=== PATIENT | female | born 1935 | race Caucasian/White ===

== ENCOUNTER 2017-02-22 13:38 | Inpatient (IN) | payer OTHER, MEDICARE ==
[2017-02-22] MEDS ORDERED: SODIUM CHLORIDE 1,000 ML IV STA (14:21)
[2017-02-22 14:45] LABS: BASOPHIL 0.9 % (0-2.0); EOSINOPHIL 1.3 % (0-4.5); MCH 31.2 pg (25.7-33.7); MCHC 34.4 g/dl (32.0-36.0); MEAN CELL VOLUME 90.5 fl (80-96); MEAN PLT VOLUME 9.2 fl (7.5-11.1); PLATELET COUNT 193 K/MM3 (134-434); RDW 14.1 % (11.6-15.6); WHITE BLOOD COUNT 7.6 K/mm3 (4.0-10.0)
--- NOTE | 2017-02-22 14:50 | PDOC ---
Attending Attestation - Resident Resident Name: Martín Chakraborty - ED Attending Attestation I have performed the following: I have examined & evaluated the patient, The case was reviewed & discussed with the resident, I agree w/resident's findings & plan, Exceptions are as noted - HPI HPI: 02/22/17 16:21 81y F hx of COPD, hypothyroidism, htn, dvt on a/c presents with genralized weakness since thursday. pt denies any complaints such as cp, abd pain, sob, fever/chils, cough, abd pain, back pain, dairrehea, dysuria. Pts daughter notes taht the pts apt is warm and although she has AC she does not like to turn it on. The pt also does not drink fluids very frequently. Pt notes she had similar sypmtoms approx 1 year ago for similar complaints. On exam pt in no distress, noted mildly hypoxic to 93%, suspect may be due to her COPD. She has dry mm, and her LE are very weak (able to lift her legs against gravity but appears generally weak). Pts labs noted for mild prerenal azotemia cxr clear will obtain CT head, consider possible cva due to lower extremity weakness. pt notes she had similar symptoms, ?old cva with reexacerbation due to dehydration? awaiting trops, tsh anticipate admission/observation due to the pts notable weakness. signed out to dr. carlson to fu with Dr. Chakraborty - Physicial Exam PE: 02/25/17 09:23 see above - Medical Decision Making 02/25/17 09:24 see luke Heart Score/ECG Review - ECG Impressions Comment:: 02/22/17 17:50 regular, narrow complex normal axis normal intervals nonspecific St wave changes rate of 78
[2017-02-22 15:23] LABS: ALBUMIN 3.6 g/dl (3.4-5.0); ALK PHOS 111 U/L (45-117); ANION GAP 12 (8-16); BILIRUBIN,TOTAL 0.7 mg/dL (0.2-1.0); CALCIUM 8.5 mg/dL (8.5-10.1); CO2 23 mmol/L (21-32); CREATININE 1.6 mg/dL (0.55-1.02); GLUCOSE,RANDOM 105 mg/dL (74-106); SGOT/AST 33 U/L (15-37); SGPT/ALT 46 U/L (12-78)
[2017-02-22 16:07] LABS: URINE APPEARANCE CLEAR; URINE BILIRUBIN NEGATIVE (NEGATIVE); URINE BLOOD NEGATIVE (NEGATIVE); URINE COLOR STRAW; URINE GLUCOSE (UA) NEGATIVE (NEGATIVE); URINE KETONE TRACE (NEGATIVE); URINE NITRITE NEGATIVE (NEGATIVE); URINE PROTEIN NEGATIVE (NEGATIVE); URINE UROBILINOGEN NEGATIVE mg/dL (0.2-1.0)
[2017-02-22 16:14] LABS: URINE LEUK ESTERASE 1+ (NEGATIVE)
[2017-02-22 16:19] LABS: URINE RBC <1 /hpf (0-3); URINE WBC 6 /hpf (3-5)
--- NOTE | 2017-02-22 16:48 | PDOC ---
History of Present Illness - General Chief Complaint: Pain Stated Complaint: BACK PAIN Time Seen by Provider: 02/22/17 13:43 - History of Present Illness Initial Comments: 02/22/17 16:48 81 yo F with h/o PAD, HTN, COPD, CKD, and DJD who presents with generalized weakness. Pt. reports weakness over the past week. She states that she has had difficulty standing from a sitting position. She also endorses worsening lower lumbar back pain over the past week. Denies numbness/tingling, SOB, chest pain, N/V, dizziness, syncope, visual disturbance, GEIGER, fevers/chills, abdominal/GI complaints, or urinary complaints. No home oxygen use and states that she has at home yolande benjamin ut has not used in past week. Tylenol for back pain with no relief. Per daughter at bedside pt. has not maintained adequate fluid hydration. Past History - Past Medical History Allergies/Adverse Reactions: Allergies Allergy/AdvReac Type Severity Reaction Status Date / Time lansoprazole [From Prevacid] Allergy Verified 03/10/16 08:23 Penicillins Allergy Hives Verified 03/10/16 08:23 prednisone Allergy Hives Verified 03/10/16 08:23 Home Medications: Ambulatory Orders Amlodipine Besylate [Norvasc -] 5 mg PO DAILY tablet 06/22/15 Albuterol 2.5/Ipratropium 0.5 [Duoneb -] 1 amp NEB QIDR amp 07/17/15 Metoprolol Tartrate [Lopressor -] 25 mg PO BID tablet 07/17/15 Calcium Carbonate [Calcium] 500 mg PO DAILY 03/10/16 Cholecalciferol (Vitamin D3) [Vitamin D3] 1,000 unit PO DAILY 03/10/16 Levothyroxine [Synthroid -] 100 mcg PO DAILY 03/10/16 Pravastatin Sodium 20 mg PO HS #30 tablet 03/14/16 Apixaban [Eliquis] 5 mg PO BID 08/08/16 COPD: Yes HTN: Yes Thyroid Disease: Yes (hypo) Other medical history: osteoporosis, DVT, back problems - Surgical History Abdominal Surgery: Yes (TUBAL LIGATION) Cholecystectomy: Yes - Psycho/Social/Smoking Cessation Hx Anxiety: No Suicidal Ideation: No Smoking History: Former smoker Have you smoked in the past 12 months: No Number of Cigarettes Smoked Daily: 0 If you are a former smoker, when did you quit?: 2 years ago Information on smoking cessation initiated: No 'Breaking Loose' booklet given: 06/19/15 Hx Alcohol Use: No Drug/Substance Use Hx: No Substance Use Type: Heroin Hx Substance Use Treatment: No Review of Systems - Review of Systems Comments:: 02/22/17 16:57 GENERAL/CONSTITUTIONAL: No fever or chills. No weakness. HEAD, EYES, EARS, NOSE AND THROAT: No change in vision. No ear pain or discharge. No sore throat. CARDIOVASCULAR: No chest pain or shortness of breath RESPIRATORY: No cough, wheezing, or hemoptysis. GASTROINTESTINAL: No nausea, vomiting, diarrhea or constipation. GENITOURINARY: No dysuria, frequency, or change in urination. MUSCULOSKELETAL: No joint or muscle swelling or pain. No neck or back pain. SKIN: No rash. NEUROLOGIC: +Weakness. No headache, vertigo, loss of consciousness, or change in strength/sensation. ENDOCRINE: No increased thirst. No abnormal weight change HEMATOLOGIC/LYMPHATIC: No anemia, easy bleeding, or history of blood clots. ALLERGIC/IMMUNOLOGIC: No hives or skin allergy. *Physical Exam - Vital Signs Last Vital Signs Temp Pulse Resp BP Pulse Ox 98.2 F 73 18 175/59 93 L 02/22/17 13:55 02/22/17 13:55 02/22/17 13:55 02/22/17 13:55 02/22/17 13:55 - Physical Exam Comments: GENERAL: Awake, alert, and fully oriented, in no acute distress HEAD: No signs of trauma, normocephalic, atraumatic EYES:+ Conjuctival pallor. PERRLA, EOMI, sclera anicteric, conjunctiva clear ENT: Auricles normal inspection, hearing grossly normal, nares patent, oropharynx clear without exudates. Dry mucosal membranes. NECK: Normal ROM, supple, no lymphadenopathy, JVD, or masses LUNGS: No distress, speaks full sentences, clear to auscultation bilaterally HEART: Regular rate and rhythm, normal S1 and S2, no murmurs, rubs or gallops, peripheral pulses normal and equal bilaterally. ABDOMEN: Soft, nontender, normoactive bowel sounds. No guarding, no rebound. No masses EXTREMITIES: Decrease sensation to pinprick and light touch in lower ext. Decreased gross motor strength in LE. Normal inspection, Normal range of motion , no edema. No clubbing or cyanosis. NEUROLOGICAL: Cranial nerves II through XII grossly intact. Normal speech. SKIN: Decreased skin turgor, Warm, Dry, no rashes or lesions noted. ED Treatment Course - LABORATORY CBC & Chemistry Diagram: 02/22/17 14:11 02/22/17 14:11 - ADDITIONAL ORDERS Additional order review: Laboratory Results 02/22/17 02/22/17 15:39 14:11 Sodium 136 Potassium 3.7 D Chloride 101 Carbon Dioxide 23 Anion Gap 12 BUN 33 H Creatinine 1.6 H Creat Clearance w eGFR 31.01 Random Glucose 105 Calcium 8.5 Total Bilirubin 0.7 D AST 33 D ALT 46 D Alkaline Phosphatase 111 Total Protein 7.0 Albumin 3.6 Urine Color Straw Urine Appearance Clear Urine pH 5.0 Urine Protein Negative Urine Glucose (UA) Negative Urine Ketones Trace H Urine Blood Negative Urine Nitrite Negative Urine Bilirubin Negative Urine Urobilinogen Negative Ur Leukocyte Esterase 1+ H Urine RBC <1 Urine WBC 6 Ur Epithelial Cells Rare 02/22/17 14:11 RBC 3.99 D MCV 90.5 MCHC 34.4 RDW 14.1 MPV 9.2 Neutrophils % 71.0 Lymphocytes % 17.2 Monocytes % 9.6 Eosinophils % 1.3 Basophils % 0.9 - RADIOLOGY Radiology Studies Ordered: Category Date Time Status CHEST X-RAY PORTABLE* [RAD] Stat Radiology 02/22/17 14:21 Taken - Medications Given in the ED: ED Medications Discontinued Medications Generic Name Dose Route Start Last Admin Trade Name Freq PRN Reason Stop Dose Admin Sodium Chloride 1,000 mls @ 1,000 mls/hr 02/22/17 14:21 02/22/17 14:55 Normal Saline - IV 02/22/17 15:20 1,000 mls/hr ASDIR STA Administration Medical Decision Making - Medical Decision Making 02/22/17 17:10 81 yo F with h/o HTN, COPD, DJD, Hypothyroid, who presents with generalized weakness. Pt. with predominate lower extremity weakness. Physical exam reveals decreased muscle strength in lower extremities against resistance. Pt. low oral fluid intake with signs of volume fluid . Hypoxic on presentation 93% RA. Pt. with baseline COPD. DDx. Dehydration, electrolyte disturbance, pneumonia, CVA. ED Course: CBC- unremarkable CMP: Prerenal Azotemia BUN: 33, Cr: 1.6 02/22/17 18:21 UA: unremarkable CXR: Unremarkable EKG: CT head: *DC/Admit/Observation/Transfer Diagnosis at time of Disposition: Renal insufficiency, Dehydration, Malaise
[2017-02-22 17:22] LABS: TROPONIN I < 0.02 ng/ml (0.00-0.05)
[2017-02-22 18:08] LABS: THYROID STIMULATING HORMONE 7.18 uIU/ml (0.358-3.74)
--- NOTE | 2017-02-22 20:11 | PN ---
Teaching Attending Note Name of Resident: Darcy Ramos ATTENDING PHYSICIAN STATEMENT I saw and evaluated the patient. I reviewed the resident's note and discussed the case with the resident. I agree with the resident's findings and plan as documented. SUBJECTIVE: 81 yo F with pmhx of DVT. HTN, CKD STg III, compression fracture, choleycystectomy who presents with generalized weakness. Notes decreased PO intake. States she feels all her limbs are weak and had trouble doing work at home such as cleaning. No current chest pain, pressure, or shortness of breath. OBJECTIVE: Physical: VS: Vital Signs Period Temp Pulse Resp BP Sys/Pascual Pulse Ox Last 24 Hr 98.2 F-98.2 F 73-85 18-18 175-189/59-74 93-96 GEN: NAD, Resting in bed HEENT: NCAT, PERRL CARD: RRR S1, S2 RESP: CTAB ABD: BSx4, NTD to palpation EXT: - C/C/E MS +4/5 LUE and LLE +3/5, +3/5 RUE, +3/5 RLE Neuro: CN II- XII intact CBCD WBC 7.6 K/mm3 (4.0-10.0) 02/22/17 14:11 RBC 3.99 M/mm3 (3.60-5.2) D 02/22/17 14:11 Hgb 12.4 GM/dL (10.7-15.3) D 02/22/17 14:11 Hct 36.1 % (32.4-45.2) D 02/22/17 14:11 MCV 90.5 fl (80-96) 02/22/17 14:11 MCHC 34.4 g/dl (32.0-36.0) 02/22/17 14:11 RDW 14.1 % (11.6-15.6) 02/22/17 14:11 Plt Count 193 K/MM3 (134-434) 02/22/17 14:11 MPV 9.2 fl (7.5-11.1) 02/22/17 14:11 CMP Sodium 136 mmol/L (136-145) 02/22/17 14:11 Potassium 3.7 mmol/L (3.5-5.1) D 02/22/17 14:11 Chloride 101 mmol/L (98-107) 02/22/17 14:11 Carbon Dioxide 23 mmol/L (21-32) 02/22/17 14:11 Anion Gap 12 (8-16) 02/22/17 14:11 BUN 33 mg/dL (7-18) H 02/22/17 14:11 Creatinine 1.6 mg/dL (0.55-1.02) H 02/22/17 14:11 Creat Clearance w eGFR 31.01 (>60) 02/22/17 14:11 Random Glucose 105 mg/dL (74-106) 02/22/17 14:11 Calcium 8.5 mg/dL (8.5-10.1) 02/22/17 14:11 Total Bilirubin 0.7 mg/dL (0.2-1.0) D 02/22/17 14:11 AST 33 U/L (15-37) D 02/22/17 14:11 ALT 46 U/L (12-78) D 02/22/17 14:11 Alkaline Phosphatase 111 U/L (45-117) 02/22/17 14:11 Total Protein 7.0 g/dl (6.4-8.2) 02/22/17 14:11 Albumin 3.6 g/dl (3.4-5.0) 02/22/17 14:11 CARDIAC ENZYMES Creatine Kinase 248 IU/L (26-192) H D 02/22/17 14:11 Troponin I < 0.02 ng/ml (0.00-0.05) 02/22/17 14:11 Home Medications Medication Instructions Recorded Amlodipine Besylate [Norvasc -] 5 mg PO DAILY tablet 06/22/15 Albuterol 2.5/Ipratropium 0.5 1 amp NEB QIDR amp 07/17/15 [Duoneb -] Metoprolol Tartrate [Lopressor -] 25 mg PO BID tablet 07/17/15 Calcium Carbonate [Calcium] 500 mg PO DAILY 03/10/16 Cholecalciferol (Vitamin D3) 1,000 unit PO DAILY 03/10/16 [Vitamin D3] Levothyroxine [Synthroid -] 100 mcg PO DAILY 03/10/16 Pravastatin Sodium 20 mg PO HS #30 tablet 03/14/16 Apixaban [Eliquis] 5 mg PO BID 08/08/16 EKG:NSR [address] HEAD: White Matter Changes 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 Small focus of acute white matter ischemia cannot be excluded, no intercranial hemmorage, ventricular size is concordant with degree of atrophy ASSESSMENT AND PLAN: 81 yo F with pmhx of HTN;, DVT, CKD, Hypothyriodism, former smoker who presents with generalized weakness 1.) Generalized Weakness - DDx: ? Hypothyroidism/?Acute white Matter Ischemia - MRI brain wo con - Free T4 stat - Neuro consult - CHk. B12/Folate - Echo/Carotids 2.) HTN - C/w home meds 3.) DVT - C/w Eliquis 4.) MARCIAL on CKD - Gentle NS - Avoid Nephrotoxins Place in OBS Stroke tele
--- NOTE | 2017-02-22 20:16 | HP ---
HISTORY OF PRESENT ILLNESS: Patient is an 81 year old female with a PMHx of hypothyroidism, HTN, COPD, CKD, hx of DVT on anticoagulation who presents for increasing weakness of her lower extremity for the past week. Patient reports she is unable to open her windows due to the severity of her weakness. According to her family, patient has had decrease PO intake with fluids and solids. She denies any dyspnea, chest pain, nausea, vomiting, dizziness, abdominal pain, hematuria, dysuria, frequency. PHYSICAL EXAMINATION Vital Signs - 24 hr 02/22/17 02/22/17 13:55 19:47 Temperature 98.2 F 98.2 F Pulse Rate 73 Pulse Rate [ 85 Apical] Respiratory 18 18 Rate Blood Pressure 175/59 Blood Pressure 189/74 [Right Arm] O2 Sat by Pulse 93 L 96 Oximetry (%) GENERAL: Awake, alert, and fully oriented, in no acute distress. MOUTH: Dry mucous membranes. LUNGS: Breath sounds equal, clear to auscultation bilaterally. No wheezes, and no crackles. No accessory muscle use. HEART: Regular rate and rhythm, normal S1 and S2 without murmur, rub or gallop. ABDOMEN: Soft, nontender, not distended, normoactive bowel sounds, no guarding, no rebound, no masses. UPPER EXTREMITIES: No peripheral edema. LOWER EXTREMITIES: No calf tenderness. No peripheral edema. NEUROLOGICAL: Sensory Intact. Motor strength 5/5 upper extremity. 3/5 Lower extremity R>L Laboratory Results - last 24 hr 02/22/17 02/22/17 02/22/17 14:11 14:11 15:39 WBC 7.6 RBC 3.99 D Hgb 12.4 D Hct 36.1 D MCV 90.5 MCH 31.2 MCHC 34.4 RDW 14.1 Plt Count 193 MPV 9.2 Neutrophils % 71.0 Lymphocytes % 17.2 Monocytes % 9.6 Eosinophils % 1.3 Basophils % 0.9 Sodium 136 Potassium 3.7 D Chloride 101 Carbon Dioxide 23 Anion Gap 12 BUN 33 H Creatinine 1.6 H Creat Clearance w eGFR 31.01 Random Glucose 105 Calcium 8.5 Total Bilirubin 0.7 D AST 33 D ALT 46 D Alkaline Phosphatase 111 Creatine Kinase 248 H D Creatine Kinase Index 1.1 CK-MB (CK-2) 2.635 Troponin I < 0.02 Total Protein 7.0 Albumin 3.6 TSH 7.18 H Urine Color Straw Urine Appearance Clear Urine pH 5.0 Ur Specific [place] 1.010 Urine Protein Negative Urine Glucose (UA) Negative Urine Ketones Trace H Urine Blood Negative Urine Nitrite Negative Urine Bilirubin Negative Urine Urobilinogen Negative Ur Leukocyte Esterase 1+ H Urine RBC <1 Urine WBC 6 Ur Epithelial Cells Rare IMAGES: HEAD CT (02/22/17): White Matter Changes 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 Small focus of acute white matter ischemia cannot be excluded, no intercranial hemmorage, ventricular size is concordant with degree of atrophy ASSESSMENT/PLAN: Patient is an 81 year old female with a PMHx of hypothyroidism, HTN, COPD, CKD, hx of DVT on anticoagulation who presented for generalized weakness. Head CT done and showed possible acute white matter ischemia. Patient admitted for further monitoring and management. Generalized Weakness -Possibly secondary to hypothyroidism vs. Acute white matter ischemia -Carotid doppler/MRI ordered -Neurology consult placed -Folate/B12 ordered -Free T3/T4 ordered -Neuro Checks -Continue Statin MARCIAL on CKD -Continue gentle IV hydration with Fluids -Avoid nephrotoxic medications -Monitor BMP Hypothyroidism -Recent adjustment to her synthroid this week -TSK 7.18 today -Free T3/T4 ordered -Continue Synthroid HTN -Continue home medications Lopressor and Amlodopine -Continue to monitor BP COPD/Asthma -Continue DuoNeb -02 PRN History of DVT -Continue home medication Eliquis F/E/N -Light hydration with IVF NS @50cc/hr -Electrolytes wnl -Sodium controlled diet Prophylaxis -High Risk. Eliquis for DVT -No GI required Disposition -Full code -Admit to med/surg. Neuro consult placed CASE DISCUSSED WITH MEDICAL TEAM AND ATTENDING. FULL H&P TO FOLLOW Visit type - Emergency Visit Emergency Visit: Yes ED Registration Date: 02/22/17 Care time: The patient presented to the Emergency Department on the above date and was hospitalized for further evaluation of their emergent condition. - New Patient This patient is new to me today: Yes Date on this admission: 02/22/17 - Critical Care Critical Care patient: No
--- NOTE | 2017-02-22 22:01 | PDOC ---
*Physical Exam - Vital Signs Last Vital Signs Temp Pulse Resp BP Pulse Ox 98.2 F 85 18 189/74 96 02/22/17 19:47 02/22/17 19:47 02/22/17 19:47 02/22/17 19:47 02/22/17 19:47 ED Treatment Course - LABORATORY CBC & Chemistry Diagram: 02/22/17 14:11 02/22/17 14:11 - ADDITIONAL ORDERS Additional order review: Laboratory Results 02/22/17 02/22/17 15:39 14:11 Sodium 136 Potassium 3.7 D Chloride 101 Carbon Dioxide 23 Anion Gap 12 BUN 33 H Creatinine 1.6 H Creat Clearance w eGFR 31.01 Random Glucose 105 Calcium 8.5 Total Bilirubin 0.7 D AST 33 D ALT 46 D Alkaline Phosphatase 111 Creatine Kinase 248 H D Creatine Kinase Index 1.1 CK-MB (CK-2) 2.635 Troponin I < 0.02 Total Protein 7.0 Albumin 3.6 TSH 7.18 H Urine Color Straw Urine Appearance Clear Urine pH 5.0 Ur Specific [place] 1.010 Urine Protein Negative Urine Glucose (UA) Negative Urine Ketones Trace H Urine Blood Negative Urine Nitrite Negative Urine Bilirubin Negative Urine Urobilinogen Negative Ur Leukocyte Esterase 1+ H Urine RBC <1 Urine WBC 6 Ur Epithelial Cells Rare 02/22/17 14:11 RBC 3.99 D MCV 90.5 MCHC 34.4 RDW 14.1 MPV 9.2 Neutrophils % 71.0 Lymphocytes % 17.2 Monocytes % 9.6 Eosinophils % 1.3 Basophils % 0.9 - Medications Given in the ED: ED Medications Discontinued Medications Generic Name Dose Route Start Last Admin Trade Name Simónq PRN Reason Stop Dose Admin Sodium Chloride 1,000 mls @ 1,000 mls/hr 02/22/17 14:21 02/22/17 14:55 Normal Saline - IV 02/22/17 15:20 1,000 mls/hr ASDIR STA Administration Medical Decision Making - Medical Decision Making 02/22/17 21:57 ct scan head :no bleed,no shift,no acute infarct, there is chronic small vesssel disease, cannot r/o an acute ischemia case discussed w hospitalist and admitted to tele *DC/Admit/Observation/Transfer Diagnosis at time of Disposition: Renal insufficiency, Dehydration, Malaise - Discharge Dispostion Admit: Yes
--- NOTE | 2017-02-22 22:02 | HP ---
CHIEF COMPLAINT: weakness, malaise PCP: Nils Gutierrez MD HISTORY OF PRESENT ILLNESS: 81yo woman with PMH of COPD, PAD, LE DVTs (dx 07/2015, on Eliquis), hypothyroidism (on synthroid), HTN, DJD, and CKD stage III who presents after 1 week of progressive weakness, malaise and decreased PO intake. The patient was last hospitalized here in Mar 2016 for vascular insufficiency, and reports since discharge she has been doing well. The patient lives alone, and is independent in her ADL/IADLs. At baseline she walks without assistance, and can walk unlimited distance while leaning on a shopping cart, but less so (she estimates 1 block) without leaning due to her back pain. The patient last felt well 1 week ago, and reports feeling progressively weak. For the past several days she spent the majority of the day on her loveseat without the energy to walk around her house or the ability to open/close her window. She denies any myalgia or arthralgia. She has had anorexia with minimal PO intake, including liquids. She last saw her PCP 1 week ago who increased her synthroid dose. She denies any fever, chills, n/v, SOB, orthopnea, chest pain, pressure or tightness. No dysuria, frequency or hesitation. Her last BM was 1 week ago, which she reports is not abnormal for her. She has been passing gas; no melena or hematochezia. She denies any recent travel or sick contacts. No cold or heat intolerance. ER course was notable for: (1) Pt afebrile, no leukocytosis (2) UA negative (3) Head CT w/o contrast - no e/o hemorrhage, cannot r/o acute infarct Recent Travel: none PAST MEDICAL HISTORY: Hypothyroidism: Levothyroxine increased last week PAD: h/o vascular insufficiency with ulceration, admitted in Mar 2016 for L gangrenous toes on L foot, followed by Dr. Oliverio [place] DVT dx Jul 2015 - started on Eliquis COPD: -former smoker, not on home O2, no prior COPD-related hospitalizations HTN DJD CKD PAST SURGICAL HISTORY: -Cholecystectomy -Tubal ligation Social History: Smoking: Former, quit in 2014, 25 pack-years Alcohol: no Drugs: no Family History: non-contributory Allergies lansoprazole [From Prevacid] Allergy (Verified 03/10/16 08:23) Penicillins Allergy (Verified 03/10/16 08:23) Hives prednisone Allergy (Verified 03/10/16 08:23) Hives HOME MEDICATIONS: Home Medications Medication Instructions Recorded Amlodipine Besylate [Norvasc -] 5 mg PO DAILY tablet 06/22/15 Albuterol 2.5/Ipratropium 0.5 1 amp NEB QIDR amp 07/17/15 [Duoneb -] Metoprolol Tartrate [Lopressor -] 25 mg PO BID tablet 07/17/15 Calcium Carbonate [Calcium] 500 mg PO DAILY 03/10/16 Cholecalciferol (Vitamin D3) 1,000 unit PO DAILY 03/10/16 [Vitamin D3] Levothyroxine [Synthroid -] 100 mcg PO DAILY alt dieb 03/10/16 Levothyroxine [Synthroid -] 50 mcg PO DAILY alt dieb Pravastatin Sodium 20 mg PO HS #30 tablet 03/14/16 Apixaban [Eliquis] 5 mg PO BID 08/08/16 B12 1000U PO daily REVIEW OF SYSTEMS CONSTITUTIONAL: +generalized, weakness, decreased of appetite Absent: fever, chills, diaphoresis, weight change HEENT: Absent: rhinorrhea, nasal congestion, throat pain, throat swelling, difficulty swallowing, mouth swelling, ear pain, eye pain, visual changes CARDIOVASCULAR: Absent: chest pain, syncope, palpitations, irregular heart rate, lightheadedness , peripheral edema RESPIRATORY: Absent: cough, shortness of breath, dyspnea with exertion, orthopnea, wheezing, stridor, hemoptysis GASTROINTESTINAL: +constipation Absent: abdominal pain, abdominal distension, nausea, vomiting, diarrhea, melena , hematochezia GENITOURINARY: Absent: dysuria, frequency, urgency, hesitancy, hematuria, flank pain, genital pain MUSCULOSKELETAL: +back pain Absent: myalgia, arthralgia, joint swelling, back pain, neck pain SKIN: Absent: rash, itching, pallor HEMATOLOGIC/IMMUNOLOGIC: Absent: easy bleeding, easy bruising, lymphadenopathy, frequent infections ENDOCRINE: Absent: unexplained weight gain, unexplained weight loss, heat intolerance, cold intolerance NEUROLOGIC: Absent: headache, focal weakness or paresthesias, dizziness, unsteady gait, seizure, mental status changes, bladder or bowel incontinence PSYCHIATRIC: Absent: anxiety, depression, suicidal or homicidal ideation, hallucinations. PHYSICAL EXAMINATION Vital Signs - 24 hr 02/22/17 02/22/17 02/22/17 02/22/17 13:55 19:47 22:05 22:42 Temperature 98.2 F 98.2 F 99.9 F H Pulse Rate 73 86 82 Pulse Rate [ 85 Apical] Respiratory 18 18 18 20 Rate Blood Pressure 175/59 177/68 164/72 Blood Pressure 189/74 [Right Arm] O2 Sat by Pulse 93 L 96 97 96 Oximetry (%) GENERAL: Awake, alert, and fully oriented, in no acute distress. HEAD: Normal with no signs of trauma. EYES: PERRLA, EOMI, sclera anicteric, conjunctiva clear EARS, NOSE, THROAT: Dry mucous membranes NECK: supple, no cervical LAD LUNGS: CTAB, no wheezes, and no crackles. No accessory muscle use. HEART: Regular rate and rhythm, normal S1 and S2 without murmur, rub or gallop. ABDOMEN: Soft, NTND, normoactive BS. No hepatosplenomegaly LOWER EXTREMITIES: 2+ DP/PT pulses b/l, warm, well-perfused. 1+ pedal edema NEUROLOGICAL: Cranial nerves II-XII intact. Postural tremor R > L UE. Motor Exam: normal tone, muscle strength LUE and RUE 5/5, RLE 3/5 < LLE +3/5 PSYCHIATRIC: Cooperative. Good eye contact. Appropriate mood and affect. SKIN: Warm, dry, normal turgor, no rashes or lesions noted Laboratory Results - last 24 hr 02/22/17 02/22/17 02/22/17 14:11 14:11 15:39 WBC 7.6 RBC 3.99 D Hgb 12.4 D Hct 36.1 D MCV 90.5 MCH 31.2 MCHC 34.4 RDW 14.1 Plt Count 193 MPV 9.2 Neutrophils % 71.0 Lymphocytes % 17.2 Monocytes % 9.6 Eosinophils % 1.3 Basophils % 0.9 Sodium 136 Potassium 3.7 D Chloride 101 Carbon Dioxide 23 Anion Gap 12 BUN 33 H Creatinine 1.6 H Creat Clearance w eGFR 31.01 Random Glucose 105 Calcium 8.5 Total Bilirubin 0.7 D AST 33 D ALT 46 D Alkaline Phosphatase 111 Creatine Kinase 248 H D Creatine Kinase Index 1.1 CK-MB (CK-2) 2.635 Troponin I < 0.02 Total Protein 7.0 Albumin 3.6 TSH 7.18 H Urine Color Straw Urine Appearance Clear Urine pH 5.0 Ur Specific [place] 1.010 Urine Protein Negative Urine Glucose (UA) Negative Urine Ketones Trace H Urine Blood Negative Urine Nitrite Negative Urine Bilirubin Negative Urine Urobilinogen Negative Ur Leukocyte Esterase 1+ H Urine RBC <1 Urine WBC 6 Ur Epithelial Cells Rare EKG 02/22/2017: NSR, rate 78, QTc 412, normal axis CXR 02/22/2017: No pneumothorax, pleural effusion, or consolidation. Head CT w/o contrast 02/22/2017 - Preliminary Report "White matter changes are most suggestive of chronic past ischemic demyelination /small vessel disease. However, a small focus of acute while matter ischemia cannot entirely be excluded. There is no evidence of intracranial hemorrhage or mass effect." ASSESSMENT/PLAN: 81yo woman with PMH of COPD, DVTs (on Eliquis), PAD, HTN, hypothyroidism, CKD who presents with generalized weakness and malaise x1 week and admitted for further monitoring and management of dehydration and CVA r/o due to possible acute infarct seen on head CT. #generalized weakness: ddx dehydration/poor PO intake vs hypothyroidism vs acute infarct -Non-contrast Head CT preliminary report cannot r/o an acute ischemic focus -CVA w/u: -Neurology consult placed (Dr. Cosme) -Brain MRA w/o contrast tomorrow -ECHO tomorrow -Carotid dopplers -Lipid panel pending -TFTs: TSH elevated (7.18), free T3 and T4 pending -ESR/CRP pending -B12/Folate pending #CKD vs acute on CKD -Hydrate NS 50cc/hr -Avoid nephrotoxic meds -Routine BMP #Hypothyroidism -Per patient, Levothyroxine dose increased last week -Continue home Levothyroxine 100mcg PO ONCE alt dieb, 50mcg PO ONCE alt dieb #HTN -Continue home amlodipine 5mg PO daily -Metoprolol 25mg PO BID #PAD -Continue home Eliquis 5mg PO BID -Continue home Pravastatin 20mg PO hs #COPD -O2 therapy to maintain pSaO2 > 90% -Continue with home Duonebs 1 amp QIDR PRN #F/E/N -NS @50cc/hr -Electolytes wnl -Na controlled diet #DVT prophylaxis: high risk -Continue with home Eliquis #Dispo -Admit Stroke tele observation -Physical therapy requested -FULL code d/w with medical team Kat Astorga MD PGY-1 Visit type - Emergency Visit Emergency Visit: Yes ED Registration Date: 02/22/17 Care time: The patient presented to the Emergency Department on the above date and was hospitalized for further evaluation of their emergent condition. - New Patient This patient is new to me today: Yes Date on this admission: 02/23/17 - Critical Care Critical Care patient: No
[2017-02-22 22:21] LABS: CHOLESTEROL 128 mg/dL (50-200); FREE T4 1.44 ng/dl (0.76-1.46); LDL CHOLESTEROL (ONLY SJRH) 71 mg/dL (5-100)
[2017-02-22 22:57] LABS: INR 1.49 (0.82-1.09); PROTHROMBIN TIME (PATIENT) 16.5 SEC (9.98-11.88)
[2017-02-22] MEDS: METOPROLOL TARTRATE 25 MG TABLET (FP) PO SCH (23:40)
[2017-02-23] MEDS: APIXABAN 5 MG TABLET PO SCH ×3 (00:18→21:21)
[2017-02-23] MEDS: ALBUTEROL SO4 2.5/IPRATROPIUM 0.5 INH SOL 3 ML VIAL.NEB. NEB SCH ×4 (00:54→17:51)
[2017-02-23] MEDS: SODIUM CHLORIDE 1,000 ML IV SCH (02:25)
[2017-02-23 05:03] VITALS: BMI 24.0
[2017-02-23] MEDS: LEVOTHYROXINE NA 100 MCG TABLET (FP) PO SCH (06:33)
--- NOTE | 2017-02-23 09:13 | EKG ---
Test Reason : Blood Pressure : / mmHG Vent. Rate : 078 BPM Atrial Rate : 078 BPM P-R Int : 178 ms QRS Dur : 100 ms QT Int : 362 ms P-R-T Axes : 074 033 012 degrees QTc Int : 412 ms NORMAL SINUS RHYTHM NONSPECIFIC ST AND T WAVE ABNORMALITY ABNORMAL ECG WHEN COMPARED WITH ECG OF 10-MAR-2016 10:23, T WAVE INVERSION NOW EVIDENT IN LATERAL LEADS Confirmed by MARIANO HUDSON, ANURAG ([id number]) on 02/23/2017 9:13:24 AM Referred By: Confirmed By:ANURAG QUINTANA MD
--- NOTE | 2017-02-23 09:22 | CON.NEURO ---
Consult - History of Present Illness History of Present Illness: 81yo woman with PMH of COPD, PAD, LE DVTs (dx 07/2015, on Eliquis), hypothyroidism (on synthroid), HTN, DJD, and CKD stage III who presents after 1 week of progressive weakness, malaise and decreased PO intake. The patient was last hospitalized here - Mar 2016 for vascular insufficiency, and reports since discharge she has been doing well. The patient lives alone, and is independent in her ADL/IADLs. At baseline she walks without assistance, and can walk unlimited distance while leaning on a shopping cart, but less so (she estimates 1 block) without leaning due to her back pain. Reports feeling progressively weak x one week . She denies any myalgia or arthralgia. She has had anorexia with minimal PO intake, including liquids. She last saw her PCP 1 week ago who increased her synthroid dose. She denies any fever, chills, n/v, SOB, orthopnea, chest pain, pressure or tightness. No dysuria, frequency or hesitation. mild neck and low back pain. denies falls. denies prior hx of stroke. feels legs are swollen. CT HD - chronic left subinsular stroke. - History Source History Provided By: Patient, Medical Record - Past Medical History Cardio/Vascular: Yes: Deep Vein Thrombosis, HTN Renal/: Yes: Renal Inusuff (suspect underlying CKD stage III w/Scr of 1.2mg/dL ) ...: No Musculoskeletal: Yes: Other (compression fracture) Endocrine: Yes: Hypothyroidism - Past Surgical History Past Surgical History: Yes: Cholecystectomy - Alcohol/Substance Use Hx Alcohol Use: No History of Substance Use: reports: None - Smoking History Smoking history: Former smoker Have you smoked in the past 12 months: No Aproximately how many cigarettes per day: 0 If you are a former smoker, when did you quit?: 2 years ago - Social History ADL: Independent History of Recent Travel: No Home Medications - Allergies Allergies/Adverse Reactions: Allergies Allergy/AdvReac Type Severity Reaction Status Date / Time lansoprazole [From Prevacid] Allergy Verified 03/10/16 08:23 Penicillins Allergy Hives Verified 03/10/16 08:23 prednisone Allergy Hives Verified 03/10/16 08:23 - Home Medications Home Medications: Ambulatory Orders Amlodipine Besylate [Norvasc -] 5 mg PO DAILY tablet 06/22/15 Albuterol 2.5/Ipratropium 0.5 [Duoneb -] 1 amp NEB QIDR amp 07/17/15 Metoprolol Tartrate [Lopressor -] 25 mg PO BID tablet 07/17/15 Calcium Carbonate [Calcium] 500 mg PO DAILY 03/10/16 Cholecalciferol (Vitamin D3) [Vitamin D3] 1,000 unit PO DAILY 03/10/16 Levothyroxine [Synthroid -] 100 mcg PO DAILY 03/10/16 Pravastatin Sodium 20 mg PO HS #30 tablet 03/14/16 Apixaban [Eliquis] 5 mg PO BID 08/08/16 Physical Exam-Neuro Vital Signs: Vital Signs Temperature 97.9 F 02/23/17 06:00 Pulse Rate 58 L 02/23/17 06:00 Respiratory Rate 20 02/23/17 06:00 Blood Pressure 158/59 02/23/17 06:00 O2 Sat by Pulse Oximetry (%) 96 02/22/17 22:42 Constitutional: Yes: Well Nourished Cardiovascular: Yes: Regular Rate and Rhythm Labs: INR, PTT INR 1.49 (0.82-1.09) H 02/22/17 22:30 Troponin, BNP 02/22/17 14:11 Troponin I < 0.02 CBCD WBC 7.6 K/mm3 (4.0-10.0) 02/22/17 14:11 RBC 3.99 M/mm3 (3.60-5.2) D 02/22/17 14:11 Hgb 12.4 GM/dL (10.7-15.3) D 02/22/17 14:11 Hct 36.1 % (32.4-45.2) D 02/22/17 14:11 MCV 90.5 fl (80-96) 02/22/17 14:11 MCHC 34.4 g/dl (32.0-36.0) 02/22/17 14:11 RDW 14.1 % (11.6-15.6) 02/22/17 14:11 Plt Count 193 K/MM3 (134-434) 02/22/17 14:11 MPV 9.2 fl (7.5-11.1) 02/22/17 14:11 CMP Sodium 136 mmol/L (136-145) 02/22/17 14:11 Potassium 3.7 mmol/L (3.5-5.1) D 02/22/17 14:11 Chloride 101 mmol/L (98-107) 02/22/17 14:11 Carbon Dioxide 23 mmol/L (21-32) 02/22/17 14:11 Anion Gap 12 (8-16) 02/22/17 14:11 BUN 33 mg/dL (7-18) H 02/22/17 14:11 Creatinine 1.6 mg/dL (0.55-1.02) H 02/22/17 14:11 Creat Clearance w eGFR 31.01 (>60) 02/22/17 14:11 Random Glucose 105 mg/dL (74-106) 02/22/17 14:11 Calcium 8.5 mg/dL (8.5-10.1) 02/22/17 14:11 Total Bilirubin 0.7 mg/dL (0.2-1.0) D 02/22/17 14:11 AST 33 U/L (15-37) D 02/22/17 14:11 ALT 46 U/L (12-78) D 02/22/17 14:11 Alkaline Phosphatase 111 U/L (45-117) 02/22/17 14:11 Total Protein 7.0 g/dl (6.4-8.2) 02/22/17 14:11 Albumin 3.6 g/dl (3.4-5.0) 02/22/17 14:11 CARDIAC ENZYMES Creatine Kinase 248 IU/L (26-192) H D 02/22/17 14:11 Troponin I < 0.02 ng/ml (0.00-0.05) 02/22/17 14:11 - Neuro Exam Level Of Consciousness: Yes: Alert, Oriented to Person, Oriented to Place (EOMi , no facial, EOMI, motor 5/5 in UE and LE, prox and distal, inc tone in legs, no sensory level, brisk reflexes in UE and LE with upgoing toes, gait not tested ) NIH Stroke Scale - Total Score NIH Stroke Scale Score: 0 Imaging - Results Cat Scan: Report Reviewed, Image Reviewed Problem List - Problems (1) Dehydration Code(s): E86.0 - DEHYDRATION (2) COPD (chronic obstructive pulmonary disease) Code(s): J44.9 - CHRONIC OBSTRUCTIVE PULMONARY DISEASE, UNSPECIFIED Qualifiers : COPD type: unspecified COPD Qualified Code(s): J44.9 - Chronic obstructive pulmonary disease, unspecified (3) DVT (deep venous thrombosis) Code(s): I82.409 - ACUTE EMBOLISM AND THOMBOS UNSP DEEP VN UNSP LOWER EXTREMITY (4) Hypothyroidism Code(s): E03.9 - HYPOTHYROIDISM, UNSPECIFIED (5) Gait abnormality Code(s): R26.9 - UNSPECIFIED ABNORMALITIES OF GAIT AND MOBILITY Assessment/Plan 81yo woman with PMH of COPD, PAD, LE DVTs (dx 07/2015, on Eliquis), hypothyroidism (on synthroid), HTN, DJD, and CKD stage III who presents after 1 week of progressive weakness, malaise and decreased PO intake. The patient was last hospitalized here - Mar 2016 for vascular insufficiency, and reports since discharge she has been doing well. Reports feeling progressively weak x one week . . mild neck and low back pain. denies falls. denies prior hx of stroke. CT HD - chronic left subinsular stroke. on exam brisk reflexes and inc tone in LE-- r/o myelopathy, less likely stroke vs metabolic /dehydration deconditioning check MRI BRAIN, C spine check ESR, B12, copper level, SPEP, A1c, SENTHIL rehab will FU Dr French [phone]
[2017-02-23] MEDS ORDERED: PT OWN MED DRAWER 7, Y5N ONE ×2 (09:53→21:17)
[2017-02-23] MEDS: METOPROLOL TARTRATE 25 MG TABLET (FP) PO SCH ×2 (09:56→21:21)
[2017-02-23] MEDS: amLODIPine BESYLATE 5 MG TABLET (FP) PO SCH (09:56)
[2017-02-23] MEDS ORDERED: PNEUMOC 13-VAL CONJ-DIP CRM/PF 0.5 ML DISP.SYRIN IM ONE (10:00)
--- NOTE | 2017-02-23 10:34 | PN ---
Progress Note, Physician Chief Complaint: Ms Dale says she is feeling weak. No cp, sob, n/v. Says she is fatigued because she was unable to sleep last night. - Current Medication List Current Medications: Active Medications Albuterol/Ipratropium (Duoneb -) 1 amp NEB QIDR [facility] Last Admin: 02/23/17 06:30 Dose: 1 amp Amlodipine Besylate (Norvasc -) 5 mg PO DAILY [facility] Last Admin: 02/23/17 09:56 Dose: 5 mg Apixaban (Eliquis -) 5 mg PO BID [facility] Last Admin: 02/23/17 09:56 Dose: 5 mg Calcium Carbonate (Os-Boris 500mg -) 500 mg PO DAILY [facility] Cholecalciferol (Vitamin D3 -) 1,000 unit PO DAILY [facility] Sodium Chloride (Normal Saline -) 1,000 mls @ 50 mls/hr IV ASDIR [facility] Stop: 02/23/17 23:50 Last Admin: 02/23/17 02:25 Dose: 50 mls/hr Levothyroxine Sodium (Synthroid -) 100 mcg PO AM [facility] Last Admin: 02/23/17 06:33 Dose: 100 mcg Metoprolol Tartrate (Lopressor -) 25 mg PO BID [facility] Last Admin: 02/23/17 09:56 Dose: 25 mg Non-Formulary Medication (Pravastatin Sodium [Pravastatin Sodium]) 20 mg PO HS [facility] Pneumococcal 13-Valent Conj Vacc (Prevnar 13 Syringe -) 0.5 ml IM .ONCE ONE Stop: 02/23/17 10:01 - Objective Vital Signs: Vital Signs Temperature 98.7 F 02/23/17 10:15 Pulse Rate 68 02/23/17 10:15 Respiratory Rate 24 02/23/17 10:15 Blood Pressure 177/51 02/23/17 10:15 O2 Sat by Pulse Oximetry (%) 95 02/23/17 10:14 Constitutional: Yes: Well Nourished, No Distress, Calm Cardiovascular: Yes: Regular Rate and Rhythm. No: Gallop, Murmur, Rub Respiratory: Yes: Regular, CTA Bilaterally. No: Rales, Rhonchi, Wheezes Gastrointestinal: Yes: Normal Bowel Sounds, Soft. No: Distention, Tenderness Extremities: Yes: WNL Edema: No Labs: INR, PTT INR 1.49 (0.82-1.09) H 02/22/17 22:30 Problem List - Problems (1) Weakness Assessment/Plan: -neurology note reviewed -lower suspicion for CVA, but work up in progress -MRI ordered, patient agrees to undergo -carotid ultrasound and ECHO ordered -continue tele monitoring -PT consulted Code(s): R53.1 - WEAKNESS (2) Dehydration Assessment/Plan: -patient looks improved -will stop IVF, having elevated blood pressure -encourage po intake Code(s): E86.0 - DEHYDRATION (3) Renal insufficiency Assessment/Plan: -recheck bmp in am Code(s): N28.9 - DISORDER OF KIDNEY AND URETER, UNSPECIFIED (4) Arterial insufficiency of lower extremity Assessment/Plan: -continue eliquis Code(s): I73.9 - PERIPHERAL VASCULAR DISEASE, UNSPECIFIED (5) COPD (chronic obstructive pulmonary disease) Assessment/Plan: -stable -continue duonebs Code(s): J44.9 - CHRONIC OBSTRUCTIVE PULMONARY DISEASE, UNSPECIFIED Qualifiers : COPD type: unspecified COPD Qualified Code(s): J44.9 - Chronic obstructive pulmonary disease, unspecified (6) HTN (hypertension) Assessment/Plan: -elevated -will stop IVF -if remains elevated, increase amlodipine Code(s): I10 - ESSENTIAL (PRIMARY) HYPERTENSION (7) Hypothyroidism Assessment/Plan: -TSH elevated but free T4 normal -with recent change in levothyroxine -would not expect change in TSH until 4 weeks after change, FT4 more accurate -will continue current dose, outpatient follow up 4-6 weeks after change Code(s): E03.9 - HYPOTHYROIDISM, UNSPECIFIED
[2017-02-23] MEDS: CHOLECALCIFEROL (VITAMIN D3) 1,000 UNIT TABLET (FP) PO SCH (12:07)
[2017-02-23] MEDS: CALCIUM (OYSTER SHELL) 500 MG TABLET (FP) PO SCH (12:08)
[2017-02-24] MEDS ORDERED: amLODIPine BESYLATE 5 MG TABLET (FP) PO ONE (00:30)
[2017-02-24] MEDS: SODIUM CHLORIDE 1,000 ML IV SCH (02:19)
[2017-02-24] MEDS: ALBUTEROL SO4 2.5/IPRATROPIUM 0.5 INH SOL 3 ML VIAL.NEB. NEB SCH ×4 (06:00→18:00)
[2017-02-24] MEDS: LEVOTHYROXINE NA 100 MCG TABLET (FP) PO SCH (06:02)
[2017-02-24 06:10] LABS: BASOPHIL 0.7 % (0-2.0); EOSINOPHIL 2.8 % (0-4.5); MCH 30.5 pg (25.7-33.7); MCHC 33.9 g/dl (32.0-36.0); MEAN CELL VOLUME 90.1 fl (80-96); MEAN PLT VOLUME 9.7 fl (7.5-11.1); NEUTROPHILS 70.8 % (42.8-82.8); PLATELET COUNT 206 K/MM3 (134-434); RDW 13.8 % (11.6-15.6); WHITE BLOOD COUNT 8.6 K/mm3 (4.0-10.0)
[2017-02-24 06:35] LABS: ANION GAP 8 (8-16); CALCIUM 8.3 mg/dL (8.5-10.1); CO2 26 mmol/L (21-32); GLUCOSE,RANDOM 89 mg/dL (74-106); MAGNESIUM 1.9 mg/dL (1.8-2.4); PHOSPHOROUS 2.2 mg/dL (2.5-4.9)
--- NOTE | 2017-02-24 08:34 | PN ---
Progress Note (short form) - Note Progress Note: HPI : 81yo woman with PMH of COPD, PAD, LE DVTs (dx 07/2015, on Eliquis), hypothyroidism (on synthroid), HTN, DJD, and CKD stage III who presents after 1 week of progressive weakness, malaise and decreased PO intake. The patient was last hospitalized here - Mar 2016 for vascular insufficiency, and reports since discharge she has been doing well. The patient lives alone, and is independent in her ADL/IADLs. At baseline she walks without assistance, and can walk unlimited distance while leaning on a shopping cart, but less so (she estimates 1 block) without leaning due to her back pain. Reports feeling progressively weak x one week . She denies any myalgia or arthralgia. She has had anorexia with minimal PO intake, including liquids. She last saw her PCP 1 week ago who increased her synthroid dose. She denies any fever, chills, n/v, SOB, orthopnea, chest pain, pressure or tightness. No dysuria, frequency or hesitation. mild neck and low back pain. denies falls. denies prior hx of stroke. feels legs are swollen. FU: awake and coversive feels a bit more energy admis minor shake in her hands, may worsen when she is nervous, though she states more prominent while she is in hospital TESTS : CT HD - chronic left subinsular stroke. MRI BRAIN : Impression: No evidence acute infarction. Ischemic changes in the left cerebellum and the white matter of both cerebral hemispheres sequela most probably to long-standing hypertension or small vessel atherosclerosis. No evidence of intra or extra-axial neoplasm. Moderate loss of volume both cerebral hemispheres with moderate dilatation of lateral ventricles. Cerebellopontine angles unremarkable. MRI C SPINE Impression: No suspicious pathologic bone young replacement cervical vertebrae, vertebral compression or paraspinal mass Moderate degenerative disc disease C2-3 C6-7. No evidence of midline or foraminal disc herniation No evidence of cord compression. No spinal stenosis. MRA Impression: Atheromatous changes cavernous portion internal carotid arteries also right and left middle cerebral arteries branches with no evidence of aneurysm. There are atheromatous changes basilar artery with no evidence of basilar stenosis, dissection or occlusion. Dopplers IMPRESSION: Interval thickening. Minimal calcifications noted. No hemodynamically significant stenosis. - History Source History Provided By: Patient, Medical Record - Past Medical History Cardio/Vascular: Yes: Deep Vein Thrombosis, HTN Renal/: Yes: Renal Inusuff (suspect underlying CKD stage III w/Scr of 1.2mg/dL ) ...: No Musculoskeletal: Yes: Other (compression fracture) Endocrine: Yes: Hypothyroidism - Past Surgical History Past Surgical History: Yes: Cholecystectomy - Alcohol/Substance Use Hx Alcohol Use: No History of Substance Use: reports: None - Smoking History Smoking history: Former smoker Have you smoked in the past 12 months: No Aproximately how many cigarettes per day: 0 If you are a former smoker, when did you quit?: 2 years ago - Social History ADL: Independent History of Recent Travel: No Home Medications - Allergies Allergies/Adverse Reactions: Allergies Allergy/AdvReac Type Severity Reaction Status Date / Time lansoprazole [From Prevacid] Allergy Verified 03/10/16 08:23 Penicillins Allergy Hives Verified 03/10/16 08:23 prednisone Allergy Hives Verified 03/10/16 08:23 - Home Medications Home Medications: Ambulatory Orders Amlodipine Besylate [Norvasc -] 5 mg PO DAILY tablet 06/22/15 Albuterol 2.5/Ipratropium 0.5 [Duoneb -] 1 amp NEB QIDR amp 07/17/15 Metoprolol Tartrate [Lopressor -] 25 mg PO BID tablet 07/17/15 Calcium Carbonate [Calcium] 500 mg PO DAILY 03/10/16 Cholecalciferol (Vitamin D3) [Vitamin D3] 1,000 unit PO DAILY 03/10/16 Levothyroxine [Synthroid -] 100 mcg PO DAILY 03/10/16 Pravastatin Sodium 20 mg PO HS #30 tablet 03/14/16 Apixaban [Eliquis] 5 mg PO BID 08/08/16 Physical Exam-Neuro Vital Signs: Vital Signs Temperature 97.9 F 02/23/17 06:00 Pulse Rate 58 L 02/23/17 06:00 Respiratory Rate 20 02/23/17 06:00 Blood Pressure 158/59 02/23/17 06:00 O2 Sat by Pulse Oximetry (%) 96 02/22/17 22:42 Constitutional: Yes: Well Nourished Cardiovascular: Yes: Regular Rate and Rhythm Labs: INR, PTT INR 1.49 (0.82-1.09) H 02/22/17 22:30 Troponin, BNP 02/22/17 14:11 Troponin I < 0.02 CBCD WBC 7.6 K/mm3 (4.0-10.0) 02/22/17 14:11 RBC 3.99 M/mm3 (3.60-5.2) D 02/22/17 14:11 Hgb 12.4 GM/dL (10.7-15.3) D 02/22/17 14:11 Hct 36.1 % (32.4-45.2) D 02/22/17 14:11 MCV 90.5 fl (80-96) 02/22/17 14:11 MCHC 34.4 g/dl (32.0-36.0) 02/22/17 14:11 RDW 14.1 % (11.6-15.6) 02/22/17 14:11 Plt Count 193 K/MM3 (134-434) 02/22/17 14:11 MPV 9.2 fl (7.5-11.1) 02/22/17 14:11 CMP Sodium 136 mmol/L (136-145) 02/22/17 14:11 Potassium 3.7 mmol/L (3.5-5.1) D 02/22/17 14:11 Chloride 101 mmol/L (98-107) 02/22/17 14:11 Carbon Dioxide 23 mmol/L (21-32) 02/22/17 14:11 Anion Gap 12 (8-16) 02/22/17 14:11 BUN 33 mg/dL (7-18) H 02/22/17 14:11 Creatinine 1.6 mg/dL (0.55-1.02) H 02/22/17 14:11 Creat Clearance w eGFR 31.01 (>60) 02/22/17 14:11 Random Glucose 105 mg/dL (74-106) 02/22/17 14:11 Calcium 8.5 mg/dL (8.5-10.1) 02/22/17 14:11 Total Bilirubin 0.7 mg/dL (0.2-1.0) D 02/22/17 14:11 AST 33 U/L (15-37) D 02/22/17 14:11 ALT 46 U/L (12-78) D 02/22/17 14:11 Alkaline Phosphatase 111 U/L (45-117) 02/22/17 14:11 Total Protein 7.0 g/dl (6.4-8.2) 02/22/17 14:11 Albumin 3.6 g/dl (3.4-5.0) 02/22/17 14:11 CARDIAC ENZYMES Creatine Kinase 248 IU/L (26-192) H D 02/22/17 14:11 Troponin I < 0.02 ng/ml (0.00-0.05) 02/22/17 14:11 - Neuro Exam Level Of Consciousness: Yes: Alert, Oriented to Person, Oriented to Place (EOMi , no facial, EOMI, motor 5/5 in UE and LE, prox and distal, inc tone in legs, no sensory level, brisk reflexes in UE and LE with upgoing toes, gait not tested ); mild cogwheeling and resting tremor NIH Stroke Scale - Total Score NIH Stroke Scale Score: 0 Imaging - Results Cat Scan: Report Reviewed, Image Reviewed Problem List - Problems (1) Dehydration Code(s): E86.0 - DEHYDRATION (2) COPD (chronic obstructive pulmonary disease) Code(s): J44.9 - CHRONIC OBSTRUCTIVE PULMONARY DISEASE, UNSPECIFIED Qualifiers : COPD type: unspecified COPD Qualified Code(s): J44.9 - Chronic obstructive pulmonary disease, unspecified (3) DVT (deep venous thrombosis) Code(s): I82.409 - ACUTE EMBOLISM AND THOMBOS UNSP DEEP VN UNSP LOWER EXTREMITY (4) Hypothyroidism Code(s): E03.9 - HYPOTHYROIDISM, UNSPECIFIED (5) Gait abnormality Code(s): R26.9 - UNSPECIFIED ABNORMALITIES OF GAIT AND MOBILITY Assessment/Plan 81yo woman with PMH of COPD, PAD, LE DVTs (dx 07/2015, on Eliquis), hypothyroidism (on synthroid), HTN, DJD, and CKD stage III who presents after 1 week of progressive weakness, malaise and decreased PO intake. Reports feeling progressively weak x one week . mild neck and low back pain. denies falls. denies prior hx of stroke. CT HD - chronic left subinsular stroke. no evidence of new stroke or myelopathy , scans reviewed, B12 NL may have soft parkinsonism as well, though we can reassess this as an outpt suspect deconditioning the main issue with her gait --rehab eval and PT neuro sign off thank you Dr French [phone] Problem List - Problems (1) Dehydration Code(s): E86.0 - DEHYDRATION (2) COPD (chronic obstructive pulmonary disease) Code(s): J44.9 - CHRONIC OBSTRUCTIVE PULMONARY DISEASE, UNSPECIFIED Qualifiers : COPD type: unspecified COPD Qualified Code(s): J44.9 - Chronic obstructive pulmonary disease, unspecified (3) DVT (deep venous thrombosis) Code(s): I82.409 - ACUTE EMBOLISM AND THOMBOS UNSP DEEP VN UNSP LOWER EXTREMITY (4) Hypothyroidism Code(s): E03.9 - HYPOTHYROIDISM, UNSPECIFIED (5) Gait abnormality Code(s): R26.9 - UNSPECIFIED ABNORMALITIES OF GAIT AND MOBILITY
[2017-02-24] MEDS ORDERED: PT OWN MED DRAWER 7, Y5N ONE (10:15)
[2017-02-24] MEDS: METOPROLOL TARTRATE 25 MG TABLET (FP) PO SCH ×2 (10:22→21:23)
[2017-02-24] MEDS: CHOLECALCIFEROL (VITAMIN D3) 1,000 UNIT TABLET (FP) PO SCH (10:22)
[2017-02-24] MEDS: CALCIUM (OYSTER SHELL) 500 MG TABLET (FP) PO SCH (10:22)
[2017-02-24] MEDS: APIXABAN 5 MG TABLET PO SCH ×2 (10:23→21:23)
[2017-02-24] MEDS: amLODIPine BESYLATE 5 MG TABLET (FP) PO SCH (10:23)
--- NOTE | 2017-02-24 11:23 | PN ---
Progress Note, Physician Chief Complaint: Ms Dale is still feeling weak. No cp, sob, n/v. - Current Medication List Current Medications: Active Medications Albuterol/Ipratropium (Duoneb -) 1 amp NEB QIDR [facility] Last Admin: 02/24/17 06:00 Dose: 1 amp Amlodipine Besylate (Norvasc -) 5 mg PO DAILY [facility] Last Admin: 02/24/17 10:23 Dose: 5 mg Apixaban (Eliquis -) 5 mg PO BID [facility] Last Admin: 02/24/17 10:23 Dose: 5 mg Calcium Carbonate (Os-Boris 500mg -) 500 mg PO DAILY [facility] Last Admin: 02/24/17 10:22 Dose: 500 mg Cholecalciferol (Vitamin D3 -) 1,000 unit PO DAILY [facility] Last Admin: 02/24/17 10:22 Dose: 1,000 unit Levothyroxine Sodium (Synthroid -) 100 mcg PO AM [facility] Last Admin: 02/24/17 06:02 Dose: 100 mcg Metoprolol Tartrate (Lopressor -) 25 mg PO BID [facility] Last Admin: 02/24/17 10:22 Dose: 25 mg Non-Formulary Medication (Pravastatin Sodium [Pravastatin Sodium]) 20 mg PO [facility] - Objective Vital Signs: Vital Signs Temperature 98.1 F 02/24/17 06:00 Pulse Rate 77 02/24/17 06:00 Respiratory Rate 18 02/24/17 06:00 Blood Pressure 158/64 02/24/17 06:00 O2 Sat by Pulse Oximetry (%) 95 02/23/17 20:00 Constitutional: Yes: Well Nourished, No Distress, Calm Cardiovascular: Yes: Regular Rate and Rhythm. No: Gallop, Murmur, Rub Respiratory: Yes: Regular, CTA Bilaterally. No: Rales, Rhonchi, Wheezes Gastrointestinal: Yes: Normal Bowel Sounds, Soft. No: Distention, Tenderness Extremities: Yes: WNL Edema: No Labs: INR, PTT INR 1.49 (0.82-1.09) H 02/22/17 22:30 Problem List - Problems (1) Weakness Code(s): R53.1 - WEAKNESS (2) Dehydration Code(s): E86.0 - DEHYDRATION (3) Renal insufficiency Code(s): N28.9 - DISORDER OF KIDNEY AND URETER, UNSPECIFIED (4) Arterial insufficiency of lower extremity Code(s): I73.9 - PERIPHERAL VASCULAR DISEASE, UNSPECIFIED (5) COPD (chronic obstructive pulmonary disease) Code(s): J44.9 - CHRONIC OBSTRUCTIVE PULMONARY DISEASE, UNSPECIFIED Qualifiers : COPD type: unspecified COPD Qualified Code(s): J44.9 - Chronic obstructive pulmonary disease, unspecified (6) HTN (hypertension) Code(s): I10 - ESSENTIAL (PRIMARY) HYPERTENSION (7) Hypothyroidism Code(s): E03.9 - HYPOTHYROIDISM, UNSPECIFIED Assessment/Plan (1) Weakness Assessment/Plan: -MRI read reviewed -appreciate neurology assistance -continue PT -unsafe discharge home, will continue PT and suspect will need placement Code(s): R53.1 - WEAKNESS (2) Dehydration Assessment/Plan: -resolved Code(s): E86.0 - DEHYDRATION (3) Renal insufficiency Assessment/Plan: -resolving -nephrology consult Code(s): N28.9 - DISORDER OF KIDNEY AND URETER, UNSPECIFIED (4) Arterial insufficiency of lower extremity Assessment/Plan: -continue eliquis Code(s): I73.9 - PERIPHERAL VASCULAR DISEASE, UNSPECIFIED (5) COPD (chronic obstructive pulmonary disease) Assessment/Plan: -stable -continue duonebs Code(s): J44.9 - CHRONIC OBSTRUCTIVE PULMONARY DISEASE, UNSPECIFIED Qualifiers : COPD type: unspecified COPD Qualified Code(s): J44.9 - Chronic obstructive pulmonary disease, unspecified (6) HTN (hypertension) Assessment/Plan: -case d/w patient and family -patient with both systolic and diastolic elevations -in evaluating MRI, patient would benefit from improved blood pressure control -will consult nephrology for further evaluation and adjustment Code(s): I10 - ESSENTIAL (PRIMARY) HYPERTENSION (7) Hypothyroidism Assessment/Plan: -TSH elevated but free T4 normal -with recent change in levothyroxine -would not expect change in TSH until 4 weeks after change, FT4 more accurate -will continue current dose, outpatient follow up 4-6 weeks after change Code(s): E03.9 - HYPOTHYROIDISM, UNSPECIFIED
--- NOTE | 2017-02-24 13:15 | CON.NEP ---
Consult Consult Specialty:: Nephrology (Donato/Abiodun) Referred by:: Dr. Hampton Reason for Consultation:: Hypertension/MARCIAL/CKD - History of Present Illness Chief Complaint: weakness History of Present Illness: This is a 81 year old woman with PMhx of Hypertension (not well controlled as per pt), COPD/Former smoker, DVT, Hypothyrodism who presented with LE weakness with Cr of 1.4 and uncontrolled hypertension. Pt was treated with IVF and Cr improved from 1.6 to 1. Prior records show baseline CR ~1.2-1.3. Neurolgoic work up showed no acute pathlogy. Pt denies any CP, SOB, Abd pain, N/V/D. reports she had leg swelling at home and is now improved. NO edema noted on initial exams. - History Source History Provided By: Patient Limitations to Obtaining History: No Limitations - Past Medical History Cardio/Vascular: Yes: Deep Vein Thrombosis, HTN Renal/: Yes: Renal Inusuff (suspect underlying CKD stage III w/Scr of 1.2mg/dL ) ...: No Musculoskeletal: Yes: Other (compression fracture) Endocrine: Yes: Hypothyroidism - Past Surgical History Past Surgical History: Yes: Cholecystectomy - Alcohol/Substance Use Hx Alcohol Use: No History of Substance Use: reports: None - Smoking History Smoking history: Former smoker Have you smoked in the past 12 months: No Aproximately how many cigarettes per day: 0 If you are a former smoker, when did you quit?: 2 years ago - Social History ADL: Independent History of Recent Travel: No Home Medications - Allergies Allergies/Adverse Reactions: Allergies Allergy/AdvReac Type Severity Reaction Status Date / Time lansoprazole [From Prevacid] Allergy Verified 03/10/16 08:23 Penicillins Allergy Hives Verified 03/10/16 08:23 prednisone Allergy Hives Verified 03/10/16 08:23 - Home Medications Home Medications: Ambulatory Orders Amlodipine Besylate [Norvasc -] 5 mg PO DAILY tablet 06/22/15 Albuterol 2.5/Ipratropium 0.5 [Duoneb -] 1 amp NEB QIDR amp 07/17/15 Metoprolol Tartrate [Lopressor -] 25 mg PO BID tablet 07/17/15 Calcium Carbonate [Calcium] 500 mg PO DAILY 03/10/16 Cholecalciferol (Vitamin D3) [Vitamin D3] 1,000 unit PO DAILY 03/10/16 Levothyroxine [Synthroid -] 100 mcg PO DAILY 03/10/16 Pravastatin Sodium 20 mg PO HS #30 tablet 03/14/16 Apixaban [Eliquis] 5 mg PO BID 08/08/16 Family Disease History - Family Disease History Family History: Unremarkable Review of Systems - Review of Systems Constitutional: reports: No Symptoms Eyes: reports: No Symptoms HENT: reports: No Symptoms Neck: reports: No Symptoms Cardiovascular: reports: No Symptoms Respiratory: reports: No Symptoms Gastrointestinal: reports: No Symptoms Genitourinary: reports: No Symptoms Musculoskeletal: reports: No Symptoms Integumentary: reports: No Symptoms Nephrology Consult - Height Height: 5 ft 5 in - Weight Weight: 144 lb 3.2 oz - BMI Body Mass Index (BMI): 24.0 - Lab Results Anion Gap: Anion Gap Anion Gap 8 (8-16) 02/24/17 05:10 - Imaging Chest X-ray: Report Reviewed MRI: Report Reviewed - Physical Examination Vital Signs: Vital Signs Temperature 98.1 F 02/24/17 06:00 Pulse Rate 82 02/24/17 12:55 Respiratory Rate 20 02/24/17 12:55 Blood Pressure 154/81 02/24/17 12:55 O2 Sat by Pulse Oximetry (%) 95 02/23/17 20:00 Constitutional: Yes: Well Nourished, No Distress HENT: Yes: Atraumatic Neck: Yes: Supple Cardiovascular: Yes: Regular Rate and Rhythm, S1, S2. No: JVD, Murmur, Rub Respiratory: Yes: Regular, CTA Bilaterally (anterior exam) Gastrointestinal: Yes: Normal Bowel Sounds, Soft Renal/: No: Bladder Distention, CVA Tenderness - Left, CVA Tenderness - Right , Gandhi Present Extremities: No: Cold, Cool, Cyanosis Edema: No Neurological: Yes: Alert, Oriented Problem List - Problems (1) Gait abnormality Code(s): R26.9 - UNSPECIFIED ABNORMALITIES OF GAIT AND MOBILITY (2) Renal insufficiency Code(s): N28.9 - DISORDER OF KIDNEY AND URETER, UNSPECIFIED (3) Weakness Code(s): R53.1 - WEAKNESS (4) Acute renal failure Code(s): N17.9 - ACUTE KIDNEY FAILURE, UNSPECIFIED Qualifiers: Acute renal failure type: unspecified Qualified Code(s): N17.9 - Acute kidney failure, unspecified (5) HTN (hypertension) Code(s): I10 - ESSENTIAL (PRIMARY) HYPERTENSION (6) Hydronephrosis of right kidney Code(s): N13.30 - UNSPECIFIED HYDRONEPHROSIS Assessment/Plan 81 year old woman with PMhx of Hypertension (not well controlled as per pt), COPD/Former smoker, DVT, Hypothyrodism who presented with LE weakness with Cr of 1.4 and uncontrolled hypertension. 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
[2017-02-24] MEDS: LISINOPRIL 10 MG TABLET (FP) PO SCH (14:31)
[2017-02-25] MEDS: ALBUTEROL SO4 2.5/IPRATROPIUM 0.5 INH SOL 3 ML VIAL.NEB. NEB SCH ×4 (05:31→17:58)
[2017-02-25] MEDS: LEVOTHYROXINE NA 100 MCG TABLET (FP) PO SCH (06:28)
[2017-02-25 06:39] LABS: BASOPHIL 0.4 % (0-2.0); EOSINOPHIL 0.9 % (0-4.5); MCH 31.2 pg (25.7-33.7); MEAN PLT VOLUME 9.7 fl (7.5-11.1); NEUTROPHILS 80.8 % (42.8-82.8); PLATELET COUNT 216 K/MM3 (134-434); RDW 14.2 % (11.6-15.6); WHITE BLOOD COUNT 11.5 K/mm3 (4.0-10.0)
[2017-02-25 07:07] LABS: CALCIUM 8.3 mg/dL (8.5-10.1)
[2017-02-25 07:11] LABS: ANION GAP 11 (8-16); CO2 23 mmol/L (21-32); CREATININE 1.1 mg/dL (0.55-1.02); GLUCOSE,RANDOM 99 mg/dL (74-106); MAGNESIUM 2.1 mg/dL (1.8-2.4); PHOSPHOROUS 2.7 mg/dL (2.5-4.9)
[2017-02-25] MEDS ORDERED: PT OWN MED DRAWER 7, Y5N ONE ×2 (10:53→21:16)
[2017-02-25] MEDS: APIXABAN 5 MG TABLET PO SCH ×2 (10:54→21:42)
[2017-02-25] MEDS: METOPROLOL TARTRATE 25 MG TABLET (FP) PO SCH ×2 (10:54→21:42)
[2017-02-25] MEDS: amLODIPine BESYLATE 5 MG TABLET (FP) PO SCH (10:54)
[2017-02-25] MEDS: CALCIUM (OYSTER SHELL) 500 MG TABLET (FP) PO SCH (10:55)
[2017-02-25] MEDS: CHOLECALCIFEROL (VITAMIN D3) 1,000 UNIT TABLET (FP) PO SCH (10:55)
[2017-02-25] MEDS: LISINOPRIL 10 MG TABLET (FP) PO SCH (10:55)
--- NOTE | 2017-02-25 11:17 | PN ---
Progress Note (short form) - Note Progress Note: Renal Follow up for CKD/Hypertension Pt seen and examined at the bedside awake and alert denies any GEIGER, CP, SOB, Abd pain, N/V/D appetite is poor BP since starting Lisinopril Selected Entries 02/24/17 02/24/17 02/25/17 17:25 21:00 01:00 Blood Pressure 155/48 138/54 179/57 02/25/17 02/25/17 05:00 08:00 Blood Pressure 157/50 155/52 Vital Signs Temperature 98.3 F 02/25/17 01:00 Pulse Rate 65 02/25/17 08:00 Respiratory Rate 18 02/25/17 08:00 Blood Pressure 155/52 02/25/17 08:00 O2 Sat by Pulse Oximetry (%) 96 02/25/17 10:00 Intake & Output 02/22/17 02/23/17 02/24/17 02/25/17 23:59 23:59 23:59 23:59 Intake Total 970 200 100 Balance 970 200 100 Weight 144 lb 3.2 oz 144 lb 3.2 oz Gen: NAD CVS: RRR, No M/R Lungs: CTA, no rales Abd: soft NT/ND Ext: No edmea, clubbing or cyanosis CBC, BMP 02/25/17 05:25 02/25/17 05:25 Laboratory Tests 02/24/17 02/25/17 02/25/17 05:10 05:25 05:25 MCV 89.0 Calcium 8.3 L 8.3 L Phosphorus 2.2 L 2.7 D Magnesium 1.9 2.1 Current Medications Albuterol/Ipratropium (Duoneb -) 1 amp NEB QIDR [facility] Last Admin: 02/25/17 05:31 Dose: 1 amp Amlodipine Besylate (Norvasc -) 5 mg PO DAILY [facility] Last Admin: 02/25/17 10:54 Dose: 5 mg Apixaban (Eliquis -) 5 mg PO BID [facility] Last Admin: 02/25/17 10:54 Dose: 5 mg Calcium Carbonate (Os-Boris 500mg -) 500 mg PO DAILY [facility] Last Admin: 02/25/17 10:55 Dose: 500 mg Cholecalciferol (Vitamin D3 -) 1,000 unit PO DAILY [facility] Last Admin: 02/25/17 10:55 Dose: 1,000 unit Levothyroxine Sodium (Synthroid -) 100 mcg PO AM [facility] Last Admin: 02/25/17 06:28 Dose: 100 mcg Lisinopril (Prinivil) 10 mg PO DAILY [facility] Last Admin: 02/25/17 10:55 Dose: 10 mg Metoprolol Tartrate (Lopressor -) 25 mg PO BID [facility] Last Admin: 02/25/17 10:54 Dose: 25 mg Non-Formulary Medication (Pravastatin Sodium [Pravastatin Sodium]) 20 mg PO HS [facility] 81 year old woman with PMhx of Hypertension (not well controlled as per pt), COPD/Former smoker, DVT, Hypothyrodism who presented with LE weakness with Cr of 1.4 and uncontrolled hypertension. #MARCIAL on CKD Renal function improved and stable Urine studies show sub-nephrotic proteinuria Continue to trend BUN/Cr #Uncontrolled Hypertension given hx of CKD pt likely has a high renin/aldosterone state Continue Lisinopril 10mg Daily Goal BP < 140/90 #LE weakness s/p neurologic work up w/o any acute pathology Continue PT #Hypothyrodism TSH was 7, T3 1.5 Thank you Problem List - Problems (1) Gait abnormality Code(s): R26.9 - UNSPECIFIED ABNORMALITIES OF GAIT AND MOBILITY (2) Renal insufficiency Code(s): N28.9 - DISORDER OF KIDNEY AND URETER, UNSPECIFIED (3) Weakness Code(s): R53.1 - WEAKNESS (4) Acute renal failure Code(s): N17.9 - ACUTE KIDNEY FAILURE, UNSPECIFIED Qualifiers: Acute renal failure type: unspecified Qualified Code(s): N17.9 - Acute kidney failure, unspecified (5) HTN (hypertension) Code(s): I10 - ESSENTIAL (PRIMARY) HYPERTENSION (6) Hydronephrosis of right kidney Code(s): N13.30 - UNSPECIFIED HYDRONEPHROSIS
--- NOTE | 2017-02-25 15:29 | PN ---
Progress Note, Physician Chief Complaint: Ms Dale says she is doing well today. No cp, sob, n/v. - Current Medication List Current Medications: Active Medications Albuterol/Ipratropium (Duoneb -) 1 amp NEB QIDR [facility] Last Admin: 02/25/17 12:04 Dose: 1 amp Amlodipine Besylate (Norvasc -) 5 mg PO DAILY [facility] Last Admin: 02/25/17 10:54 Dose: 5 mg Apixaban (Eliquis -) 5 mg PO BID [facility] Last Admin: 02/25/17 10:54 Dose: 5 mg Calcium Carbonate (Os-Boris 500mg -) 500 mg PO DAILY [facility] Last Admin: 02/25/17 10:55 Dose: 500 mg Cholecalciferol (Vitamin D3 -) 1,000 unit PO DAILY [facility] Last Admin: 02/25/17 10:55 Dose: 1,000 unit Levothyroxine Sodium (Synthroid -) 100 mcg PO AM [facility] Last Admin: 02/25/17 06:28 Dose: 100 mcg Lisinopril (Prinivil) 10 mg PO DAILY [facility] Last Admin: 02/25/17 10:55 Dose: 10 mg Metoprolol Tartrate (Lopressor -) 25 mg PO BID [facility] Last Admin: 02/25/17 10:54 Dose: 25 mg Non-Formulary Medication (Pravastatin Sodium [Pravastatin Sodium]) 20 mg PO HS [facility] - Objective Vital Signs: Vital Signs Temperature 98.9 F 02/25/17 14:02 Pulse Rate 86 02/25/17 14:02 Respiratory Rate 19 02/25/17 14:02 Blood Pressure 131/48 02/25/17 14:02 O2 Sat by Pulse Oximetry (%) 98 02/25/17 12:04 Constitutional: Yes: Well Nourished, No Distress, Calm Cardiovascular: Yes: Regular Rate and Rhythm. No: Gallop, Murmur, Rub Respiratory: Yes: Regular, CTA Bilaterally. No: Rales, Rhonchi, Wheezes Gastrointestinal: Yes: Normal Bowel Sounds, Soft. No: Distention, Tenderness Extremities: Yes: WNL Edema: No Labs: CBC, BMP 02/25/17 05:25 02/25/17 05:25 INR, PTT INR 1.49 (0.82-1.09) H 02/22/17 22:30 Problem List - Problems (1) Weakness Code(s): R53.1 - WEAKNESS (2) Dehydration Code(s): E86.0 - DEHYDRATION (3) Renal insufficiency Code(s): N28.9 - DISORDER OF KIDNEY AND URETER, UNSPECIFIED (4) Arterial insufficiency of lower extremity Code(s): I73.9 - PERIPHERAL VASCULAR DISEASE, UNSPECIFIED (5) COPD (chronic obstructive pulmonary disease) Code(s): J44.9 - CHRONIC OBSTRUCTIVE PULMONARY DISEASE, UNSPECIFIED Qualifiers : COPD type: unspecified COPD Qualified Code(s): J44.9 - Chronic obstructive pulmonary disease, unspecified (6) HTN (hypertension) Code(s): I10 - ESSENTIAL (PRIMARY) HYPERTENSION (7) Hypothyroidism Code(s): E03.9 - HYPOTHYROIDISM, UNSPECIFIED Assessment/Plan (1) Weakness Assessment/Plan: -MRI read reviewed -appreciate neurology assistance -continue PT -unsafe discharge home, will continue PT plan for placement Code(s): R53.1 - WEAKNESS (2) Dehydration Assessment/Plan: -resolved Code(s): E86.0 - DEHYDRATION (3) Renal insufficiency Assessment/Plan: -slightly elevated but started on lisinopril -nephrology following Code(s): N28.9 - DISORDER OF KIDNEY AND URETER, UNSPECIFIED (4) Arterial insufficiency of lower extremity Assessment/Plan: -continue eliquis Code(s): I73.9 - PERIPHERAL VASCULAR DISEASE, UNSPECIFIED (5) COPD (chronic obstructive pulmonary disease) Assessment/Plan: -stable -continue duonebs Code(s): J44.9 - CHRONIC OBSTRUCTIVE PULMONARY DISEASE, UNSPECIFIED Qualifiers : COPD type: unspecified COPD Qualified Code(s): J44.9 - Chronic obstructive pulmonary disease, unspecified (6) HTN (hypertension) Assessment/Plan: -nephrology following -much improved with addition of lisinopril Code(s): I10 - ESSENTIAL (PRIMARY) HYPERTENSION (7) Hypothyroidism Assessment/Plan: -TSH elevated but free T4 normal -with recent change in levothyroxine -would not expect change in TSH until 4 weeks after change, FT4 more accurate -will continue current dose, outpatient follow up 4-6 weeks after change Code(s): E03.9 - HYPOTHYROIDISM, UNSPECIFIED
[2017-02-25 20:24] LABS: ALBUMIN 2.9 g/dl (3.4-5.0); ALK PHOS 105 U/L (45-117); ANION GAP 8 (8-16); BILIRUBIN,TOTAL 0.4 mg/dL (0.2-1.0); CALCIUM 8.8 mg/dL (8.5-10.1); CO2 24 mmol/L (21-32); CREATININE 1.4 mg/dL (0.55-1.02); GLUCOSE,RANDOM 164 mg/dL (74-106); SGOT/AST 14 U/L (15-37); SGPT/ALT 23 U/L (12-78); TOT PROT 6.2 g/dl (6.4-8.2)
[2017-02-25 20:34] LABS: MCH 30.1 pg (25.7-33.7); MCHC 33.3 g/dl (32.0-36.0); MEAN CELL VOLUME 90.5 fl (80-96); PLATELET COUNT 215 K/MM3 (134-434); WHITE BLOOD COUNT 13.8 K/mm3 (4.0-10.0)
[2017-02-26] MEDS: ALBUTEROL SO4 2.5/IPRATROPIUM 0.5 INH SOL 3 ML VIAL.NEB. NEB SCH ×5 (00:10→23:29)
[2017-02-26] MEDS ORDERED: PT OWN MED DRAWER 7, Y5N ONE ×2 (05:08→09:51)
[2017-02-26 06:53] LABS: BASOPHIL 0.4 % (0-2.0); EOSINOPHIL 0.7 % (0-4.5); MCH 30.2 pg (25.7-33.7); MCHC 33.4 g/dl (32.0-36.0); MEAN CELL VOLUME 90.4 fl (80-96); MEAN PLT VOLUME 9.7 fl (7.5-11.1); NEUTROPHILS 78.5 % (42.8-82.8); PLATELET COUNT 217 K/MM3 (134-434); RDW 14.4 % (11.6-15.6); WHITE BLOOD COUNT 12.1 K/mm3 (4.0-10.0)
[2017-02-26] MEDS: LEVOTHYROXINE NA 100 MCG TABLET (FP) PO SCH (07:01)
[2017-02-26 07:12] LABS: ANION GAP 8 (8-16); CALCIUM 8.4 mg/dL (8.5-10.1); CO2 27 mmol/L (21-32); CREATININE 1.3 mg/dL (0.55-1.02); GLUCOSE,RANDOM 117 mg/dL (74-106); PHOSPHOROUS 3.1 mg/dL (2.5-4.9)
--- NOTE | 2017-02-26 09:26 | CON.GI ---
Consult Consult Specialty:: GI Referred by:: Dr. Nils Gutierrez Reason for Consultation:: Dark BM - History of Present Illness Chief Complaint: Dark bowel movement History of Present Illness: 81F admitted through [facility] ER for evaluation of weakness. She is being treated for dehydration and is being evaluated by renal and neurology. Asked to evaluate a dark bowel movement last night. Ms. Dale denies focal GI complaints or change in bowel habits. She does not recall ever having had an endoscopy or colonoscopy. There is no family history of colorectal cancer or other GI malignancy. She is on Eliquis for ? DVT - History Source History Provided By: Patient Limitations to Obtaining History: Poor Historian - Past Medical History CHIEF DEPUTY: Yes: Other (tremors) Cardio/Vascular: Yes: Deep Vein Thrombosis, HTN Renal/: Yes: Renal Inusuff (suspect underlying CKD stage III w/Scr of 1.2mg/dL ) ...: No Musculoskeletal: Yes: Other (compression fracture) Endocrine: Yes: Hypothyroidism - Past Surgical History Past Surgical History: Yes: Cholecystectomy (Lap), (x2) - Alcohol/Substance Use Hx Alcohol Use: No History of Substance Use: reports: None - Smoking History Smoking history: Former smoker Have you smoked in the past 12 months: No Aproximately how many cigarettes per day: 0 If you are a former smoker, when did you quit?: 2 years ago - Social History Usual Living Arrangement: Alone ADL: Independent 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 Place of : [facility] History of Recent Travel: No Home Medications - Allergies Allergies/Adverse Reactions: Allergies Allergy/AdvReac Type Severity Reaction Status Date / Time lansoprazole [From Prevacid] Allergy Verified 03/10/16 08:23 Penicillins Allergy Hives Verified 03/10/16 08:23 prednisone Allergy Hives Verified 03/10/16 08:23 - Home Medications Home Medications: Ambulatory Orders Amlodipine Besylate [Norvasc -] 5 mg PO DAILY tablet 06/22/15 Albuterol 2.5/Ipratropium 0.5 [Duoneb -] 1 amp NEB QIDR amp 07/17/15 Metoprolol Tartrate [Lopressor -] 25 mg PO BID tablet 07/17/15 Calcium Carbonate [Calcium] 500 mg PO DAILY 03/10/16 Cholecalciferol (Vitamin D3) [Vitamin D3] 1,000 unit PO DAILY 03/10/16 Levothyroxine [Synthroid -] 100 mcg PO DAILY 03/10/16 Pravastatin Sodium 20 mg PO HS #30 tablet 03/14/16 Apixaban [Eliquis] 5 mg PO BID 08/08/16 Family Disease History - Family Disease History Family Disease History: Other: Father ( 52: sudden), Mother (: 76: unclear causes), Brother (5, unclear causes), Sister (2, unclear causes), Son (1, healthy), Daughter (1, healthy) Other Family History: No family history of colorectal cancer or other GI malignancy Review of Systems - Review of Systems Cardiovascular: denies: Chest Pain Respiratory: denies: SOB Neurological: reports: Tremors Physical Exam-GI Vital Signs: Vital Signs Temperature 97.8 F 02/26/17 08:21 Pulse Rate 69 02/26/17 08:21 Respiratory Rate 18 02/26/17 08:21 Blood Pressure 135/52 02/26/17 08:21 O2 Sat by Pulse Oximetry (%) 96 02/26/17 08:15 Constitutional: Yes: Calm Eyes: No: Sclera Icterus Cardiovascular: Yes: Regular Rate and Rhythm, Murmur (2/6 @ RSB) Respiratory: Yes: CTA Bilaterally Gastrointestinal Inspection: Yes: Scars (healed trochar scars and pelvic scar). No: Hernia ...Auscultate: Yes: Normoactive Bowel Sounds ...Palpate: No: Hepatomegaly, Splenomegaly, Tenderness ...Rectal Exam: Yes: Other (Refused by patient) Edema: No Neurological: Yes: Alert Labs: CBC, BMP 02/26/17 05:15 02/26/17 05:15 INR, PTT INR 1.49 (0.82-1.09) H 02/22/17 22:30 Hepatic Panel Total Bilirubin 0.4 mg/dL (0.2-1.0) D 02/25/17 19:30 AST 14 U/L (15-37) L D 02/25/17 19:30 ALT 23 U/L (12-78) D 02/25/17 19:30 Alkaline Phosphatase 105 U/L (45-117) 02/25/17 19:30 Albumin 2.9 g/dl (3.4-5.0) L 02/25/17 19:30 Problem List - Problems (1) Dark stools Assessment/Plan: No profuse melena reported by nursing staff today and patient's hemodynamics / H /H remain stable. Ms. Dale refused rectal exam therefore specimen not obtained Please send specimen for FOBT Protonix 20mg once daily while on eliquis If developing anemia / melena, A/C may need to be held and endoscopy would have to be discussed Code(s): R19.5 - OTHER FECAL ABNORMALITIES
[2017-02-26] MEDS: APIXABAN 5 MG TABLET PO SCH ×2 (09:56→21:25)
[2017-02-26] MEDS: METOPROLOL TARTRATE 25 MG TABLET (FP) PO SCH ×2 (09:56→21:24)
[2017-02-26] MEDS: CHOLECALCIFEROL (VITAMIN D3) 1,000 UNIT TABLET (FP) PO SCH (09:57)
[2017-02-26] MEDS: LISINOPRIL 10 MG TABLET (FP) PO SCH (09:57)
[2017-02-26] MEDS: CALCIUM (OYSTER SHELL) 500 MG TABLET (FP) PO SCH (09:57)
[2017-02-26] MEDS: amLODIPine BESYLATE 5 MG TABLET (FP) PO SCH (09:57)
--- NOTE | 2017-02-26 11:53 | PN ---
Progress Note, Physician Chief Complaint: Ms Dale says she feels weak. Says her dark stool is from the iron. No cp, sob, n/v. - Current Medication List Current Medications: Active Medications Albuterol/Ipratropium (Duoneb -) 1 amp NEB QIDR [facility] Last Admin: 02/26/17 06:27 Dose: Not Given Amlodipine Besylate (Norvasc -) 5 mg PO DAILY [facility] Last Admin: 02/26/17 09:57 Dose: 5 mg Apixaban (Eliquis -) 5 mg PO BID [facility] Last Admin: 02/26/17 09:56 Dose: 5 mg Calcium Carbonate (Os-Boris 500mg -) 500 mg PO DAILY [facility] Last Admin: 02/26/17 09:57 Dose: 500 mg Cholecalciferol (Vitamin D3 -) 1,000 unit PO DAILY [facility] Last Admin: 02/26/17 09:57 Dose: 1,000 unit Levothyroxine Sodium (Synthroid -) 100 mcg PO AM [facility] Last Admin: 02/26/17 07:01 Dose: 100 mcg Lisinopril (Prinivil) 10 mg PO DAILY [facility] Last Admin: 02/26/17 09:57 Dose: 10 mg Metoprolol Tartrate (Lopressor -) 25 mg PO BID [facility] Last Admin: 02/26/17 09:56 Dose: 25 mg Non-Formulary Medication (Pravastatin Sodium [Pravastatin Sodium]) 20 mg PO HS [facility] - Objective Vital Signs: Vital Signs Temperature 97.8 F 02/26/17 08:21 Pulse Rate 69 02/26/17 08:21 Respiratory Rate 18 02/26/17 08:21 Blood Pressure 135/52 02/26/17 08:21 O2 Sat by Pulse Oximetry (%) 96 02/26/17 09:00 Constitutional: Yes: Well Nourished, No Distress, Calm Cardiovascular: Yes: Regular Rate and Rhythm. No: Gallop, Murmur, Rub Respiratory: Yes: Regular, CTA Bilaterally. No: Rales, Rhonchi, Wheezes Gastrointestinal: Yes: Normal Bowel Sounds, Soft. No: Distention, Tenderness Extremities: Yes: WNL Edema: No Labs: CBC, BMP 02/26/17 05:15 02/26/17 05:15 INR, PTT INR 1.49 (0.82-1.09) H 02/22/17 22:30 Problem List - Problems (1) Weakness Code(s): R53.1 - WEAKNESS (2) Dehydration Code(s): E86.0 - DEHYDRATION (3) Renal insufficiency Code(s): N28.9 - DISORDER OF KIDNEY AND URETER, UNSPECIFIED (4) Arterial insufficiency of lower extremity Code(s): I73.9 - PERIPHERAL VASCULAR DISEASE, UNSPECIFIED (5) COPD (chronic obstructive pulmonary disease) Code(s): J44.9 - CHRONIC OBSTRUCTIVE PULMONARY DISEASE, UNSPECIFIED Qualifiers : COPD type: unspecified COPD Qualified Code(s): J44.9 - Chronic obstructive pulmonary disease, unspecified (6) HTN (hypertension) Code(s): I10 - ESSENTIAL (PRIMARY) HYPERTENSION (7) Hypothyroidism Code(s): E03.9 - HYPOTHYROIDISM, UNSPECIFIED Assessment/Plan (1) Weakness Assessment/Plan: -continue PT -will benefit from SNF placement Code(s): R53.1 - WEAKNESS (2) Dehydration Assessment/Plan: -resolved Code(s): E86.0 - DEHYDRATION (3) Renal insufficiency Assessment/Plan: -stable -nephrology following Code(s): N28.9 - DISORDER OF KIDNEY AND URETER, UNSPECIFIED (4) Arterial insufficiency of lower extremity Assessment/Plan: -continue eliquis Code(s): I73.9 - PERIPHERAL VASCULAR DISEASE, UNSPECIFIED (5) COPD (chronic obstructive pulmonary disease) Assessment/Plan: -stable -continue duonebs Code(s): J44.9 - CHRONIC OBSTRUCTIVE PULMONARY DISEASE, UNSPECIFIED Qualifiers : COPD type: unspecified COPD Qualified Code(s): J44.9 - Chronic obstructive pulmonary disease, unspecified (6) HTN (hypertension) Assessment/Plan: -nephrology following -much improved with addition of lisinopril Code(s): I10 - ESSENTIAL (PRIMARY) HYPERTENSION (7) Hypothyroidism Assessment/Plan: -TSH elevated but free T4 normal -with recent change in levothyroxine -would not expect change in TSH until 4 weeks after change, FT4 more accurate -will continue current dose, outpatient follow up 4-6 weeks after change Code(s): E03.9 - HYPOTHYROIDISM, UNSPECIFIED (8) Possible melena -patient feels its from iron -will check stool for occult blood -if negative, safe for discharge -if positive, will need endoscopy -GI following -agree with protonix since on eliquis
--- NOTE | 2017-02-26 13:01 | PN ---
Progress Note (short form) - Note Progress Note: Renal Follow up for CKD/Hypertension Pt seen and examined at the bedside no acute complaints no sob, chest pain, abd pain, N/V/D BP trend the last 24 hours Selected Entries 02/25/17 02/25/17 02/25/17 08:00 12:00 14:02 Blood Pressure 155/52 142/87 131/48 02/25/17 02/25/17 02/25/17 16:00 17:17 20:00 Blood Pressure 138/56 138/56 143/56 02/26/17 02/26/17 02/26/17 02:00 06:00 08:21 Blood Pressure 154/52 152/50 135/52 Vital Signs Temperature 97.8 F 02/26/17 08:21 Pulse Rate 69 02/26/17 08:21 Respiratory Rate 18 02/26/17 08:21 Blood Pressure 135/52 02/26/17 08:21 O2 Sat by Pulse Oximetry (%) 96 02/26/17 09:00 Gen: NAD CVS: RRR, No M/R Lungs: CTA, no rales Abd: soft NT/ND Ext: No edmea, clubbing or cyanosis CBC, BMP 02/26/17 05:15 02/26/17 05:15 Laboratory Tests 02/26/17 05:15 Calcium 8.4 L Phosphorus 3.1 Magnesium 2.0 Current Medications Albuterol/Ipratropium (Duoneb -) 1 amp NEB QIDR [facility] Last Admin: 02/26/17 12:10 Dose: 1 amp Amlodipine Besylate (Norvasc -) 5 mg PO DAILY [facility] Last Admin: 02/26/17 09:57 Dose: 5 mg Apixaban (Eliquis -) 5 mg PO BID [facility] Last Admin: 02/26/17 09:56 Dose: 5 mg Calcium Carbonate (Os-Boris 500mg -) 500 mg PO DAILY [facility] Last Admin: 02/26/17 09:57 Dose: 500 mg Cholecalciferol (Vitamin D3 -) 1,000 unit PO DAILY [facility] Last Admin: 02/26/17 09:57 Dose: 1,000 unit Levothyroxine Sodium (Synthroid -) 100 mcg PO AM [facility] Last Admin: 02/26/17 07:01 Dose: 100 mcg Lisinopril (Prinivil) 10 mg PO DAILY [facility] Last Admin: 02/26/17 09:57 Dose: 10 mg Metoprolol Tartrate (Lopressor -) 25 mg PO BID [facility] Last Admin: 02/26/17 09:56 Dose: 25 mg Non-Formulary Medication (Pravastatin Sodium [Pravastatin Sodium]) 20 mg PO HS [facility] 81 year old woman with PMhx of Hypertension (not well controlled as per pt), COPD/Former smoker, DVT, Hypothyrodism who presented with LE weakness with Cr of 1.4 and uncontrolled hypertension. #MARCIAL on CKD Cr with slight rise but in setting of adding ACEi so it is acceptable would continue to trend BUN/Cr #Uncontrolled Hypertension given hx of CKD pt likely has a high renin/aldosterone state BP improved with Lisinopril continue to monitor Goal BP < 140/90 #LE weakness s/p neurologic work up w/o any acute pathology Continue PT #Hypothyrodism TSH was 7, T3 1.5 Thank you Problem List - Problems (1) Gait abnormality Code(s): R26.9 - UNSPECIFIED ABNORMALITIES OF GAIT AND MOBILITY (2) Renal insufficiency Code(s): N28.9 - DISORDER OF KIDNEY AND URETER, UNSPECIFIED (3) Weakness Code(s): R53.1 - WEAKNESS (4) Acute renal failure Code(s): N17.9 - ACUTE KIDNEY FAILURE, UNSPECIFIED Qualifiers: Acute renal failure type: unspecified Qualified Code(s): N17.9 - Acute kidney failure, unspecified (5) HTN (hypertension) Code(s): I10 - ESSENTIAL (PRIMARY) HYPERTENSION (6) Hydronephrosis of right kidney Code(s): N13.30 - UNSPECIFIED HYDRONEPHROSIS
[2017-02-26] MEDS: RANITIDINE HCL 150 MG TABLET (FP) PO SCH (21:34)
[2017-02-27] MEDS ORDERED: PNEUMOC 13-VAL CONJ-DIP CRM/PF 0.5 ML DISP.SYRIN IM ONE (03:34)
[2017-02-27] MEDS: LEVOTHYROXINE NA 100 MCG TABLET (FP) PO SCH (06:07)
[2017-02-27 06:26] LABS: BASOPHIL 0.5 % (0-2.0); EOSINOPHIL 2.1 % (0-4.5); MCH 30.3 pg (25.7-33.7); MCHC 33.6 g/dl (32.0-36.0); MEAN CELL VOLUME 90.2 fl (80-96); MEAN PLT VOLUME 9.9 fl (7.5-11.1); NEUTROPHILS 78.1 % (42.8-82.8); PLATELET COUNT 225 K/MM3 (134-434); WHITE BLOOD COUNT 11.8 K/mm3 (4.0-10.0)
[2017-02-27] MEDS: ALBUTEROL SO4 2.5/IPRATROPIUM 0.5 INH SOL 3 ML VIAL.NEB. NEB SCH ×4 (06:29→23:15)
[2017-02-27 07:09] LABS: ANION GAP 10 (8-16); CALCIUM 8.3 mg/dL (8.5-10.1); CO2 25 mmol/L (21-32); CREATININE 1.2 mg/dL (0.55-1.02); GLUCOSE,RANDOM 110 mg/dL (74-106)
[2017-02-27] MEDS: CHOLECALCIFEROL (VITAMIN D3) 1,000 UNIT TABLET (FP) PO SCH (10:57)
[2017-02-27] MEDS: amLODIPine BESYLATE 5 MG TABLET (FP) PO SCH (10:57)
[2017-02-27] MEDS: APIXABAN 5 MG TABLET PO SCH ×2 (10:57→22:10)
[2017-02-27] MEDS: LISINOPRIL 10 MG TABLET (FP) PO SCH (10:57)
[2017-02-27] MEDS: RANITIDINE HCL 150 MG TABLET (FP) PO SCH ×2 (10:57→22:10)
[2017-02-27] MEDS: CALCIUM (OYSTER SHELL) 500 MG TABLET (FP) PO SCH (10:57)
[2017-02-27] MEDS: METOPROLOL TARTRATE 25 MG TABLET (FP) PO SCH ×2 (10:57→22:10)
--- NOTE | 2017-02-27 11:04 | PN ---
GI Progress Note Subjective: No acute events No melena reported. Stool in diaper that had been changed appears to be dark brown. She also takes iron at home Discussed finding of FOBT + w/ Ms. Dale. I also asked her about her lansoprazole allergy. She believes that it caused her to have a rash - Objective Vital Signs: Vital Signs Temperature 97.1 F L 02/27/17 08:43 Pulse Rate 63 02/27/17 08:43 Respiratory Rate 18 02/27/17 08:43 Blood Pressure 152/56 02/27/17 08:43 O2 Sat by Pulse Oximetry (%) 94 L 02/26/17 22:00 Constitutional: Calm Eyes: No: Sclera Icterus Cardiovascular: Yes: Regular Rate and Rhythm Respiratory: Yes: Diminished (at bases b/l. poor inspiratory effort) Gastrointestinal Inspection: No: Distention ...Auscultate: Yes: Normoactive Bowel Sounds ...Palpate: No: Tenderness Labs: CBC, BMP 02/27/17 05:15 02/27/17 05:15 INR, PTT INR 1.49 (0.82-1.09) H 02/22/17 22:30 Problem List - Problems (1) Fecal occult blood test positive Assessment/Plan: I discussed the FOBT being + w/ Ms. Dale and explained that to exclude intraluminal pathology such as PUD, bleeding blood vessels, polyps or cancers of the intestinal tract such as colon cancer, EGD and colonoscopy could be undertaken, especially in the setting of continued anticoagulation. We discussed potential risks of the procedures like but not limited to bleeding, perforation requiring surgery to repair, infection and sedation medication effects all of which could be potentially life threatening. She stated that she wanted to think about things and felt that the blood in the stool was "from straining". I explained that she should also discuss things with her family regarding this if she so wanted. If she is agreeable, then coordination would be needed w/ hematology / primary team as she is on Eliquis [id number] once daily Ranitidine 150mg PO BID given PPI allergy Recall if Ms. Dale is willing to undergo further evaluation Code(s): R19.5 - OTHER FECAL ABNORMALITIES
--- NOTE | 2017-02-27 11:27 | PN ---
Progress Note (short form) - Note Progress Note: Renal Follow up for CKD/Hypertension Pt seen and examined at the bedside pt feels tired because she did not sleep last night BP trend: Selected Entries 02/26/17 02/26/17 02/26/17 14:00 17:05 22:00 Blood Pressure 137/54 147/52 153/63 02/27/17 02/27/17 02/27/17 02:00 06:00 08:43 Blood Pressure 157/74 162/52 152/56 Vital Signs Temperature 97.1 F L 02/27/17 08:43 Pulse Rate 55 L 02/27/17 11:14 Respiratory Rate 18 02/27/17 08:43 Blood Pressure 152/56 02/27/17 08:43 O2 Sat by Pulse Oximetry (%) 92 L 02/27/17 11:14 Gen: NAD CVS: RRR, No M/R Lungs: CTA, no rales Abd: soft NT/ND Ext: No edmea, clubbing or cyanosis CBC, BMP 02/27/17 05:15 02/27/17 05:15 Laboratory Tests 02/27/17 05:15 Calcium 8.3 L Phosphorus 3.0 Magnesium 2.0 Current Medications Albuterol/Ipratropium (Duoneb -) 1 amp NEB QIDR [facility] Last Admin: 02/27/17 11:14 Dose: Not Given Amlodipine Besylate (Norvasc -) 5 mg PO DAILY [facility] Last Admin: 02/27/17 10:57 Dose: 5 mg Apixaban (Eliquis -) 5 mg PO BID [facility] Last Admin: 02/27/17 10:57 Dose: 5 mg Calcium Carbonate (Os-Boris 500mg -) 500 mg PO DAILY [facility] Last Admin: 02/27/17 10:57 Dose: 500 mg Cholecalciferol (Vitamin D3 -) 1,000 unit PO DAILY [facility] Last Admin: 02/27/17 10:57 Dose: 1,000 unit Levothyroxine Sodium (Synthroid -) 100 mcg PO AM [facility] Last Admin: 02/27/17 06:07 Dose: 100 mcg Lisinopril (Prinivil) 20 mg PO DAILY [facility] Metoprolol Tartrate (Lopressor -) 25 mg PO BID [facility] Last Admin: 02/27/17 10:57 Dose: 25 mg Non-Formulary Medication (Pravastatin Sodium [Pravastatin Sodium]) 20 mg PO HS [facility] Ranitidine HCl (Zantac -) 150 mg PO BID [facility] Last Admin: 02/27/17 10:57 Dose: 150 mg 81 year old woman with PMhx of Hypertension (not well controlled as per pt), COPD/Former smoker, DVT, Hypothyrodism who presented with LE weakness with Cr of 1.4 and uncontrolled hypertension. #MARCIAL on CKD Renal function stable trend BUN/Cr and K on higher dose ACEi #Uncontrolled Hypertension given hx of CKD pt likely has a high renin/aldosterone state increased Lisinopril to 20mg Daily #LE weakness s/p neurologic work up w/o any acute pathology Continue PT #Hypothyrodism TSH was 7, T3 1.5 Thank you Problem List - Problems (1) Gait abnormality Code(s): R26.9 - UNSPECIFIED ABNORMALITIES OF GAIT AND MOBILITY (2) Renal insufficiency Code(s): N28.9 - DISORDER OF KIDNEY AND URETER, UNSPECIFIED (3) Weakness Code(s): R53.1 - WEAKNESS (4) Acute renal failure Code(s): N17.9 - ACUTE KIDNEY FAILURE, UNSPECIFIED Qualifiers: Acute renal failure type: unspecified Qualified Code(s): N17.9 - Acute kidney failure, unspecified (5) HTN (hypertension) Code(s): I10 - ESSENTIAL (PRIMARY) HYPERTENSION (6) Hydronephrosis of right kidney Code(s): N13.30 - UNSPECIFIED HYDRONEPHROSIS
--- NOTE | 2017-02-27 13:24 | PN ---
Progress Note, Physician Chief Complaint: Ms Dale continues to feel weak. No cp, sob, n/v. Currently declining interventions - Current Medication List Current Medications: Active Medications Albuterol/Ipratropium (Duoneb -) 1 amp NEB QIDR [facility] Last Admin: 02/27/17 11:14 Dose: Not Given Amlodipine Besylate (Norvasc -) 5 mg PO DAILY [facility] Last Admin: 02/27/17 10:57 Dose: 5 mg Apixaban (Eliquis -) 5 mg PO BID [facility] Last Admin: 02/27/17 10:57 Dose: 5 mg Calcium Carbonate (Os-Boris 500mg -) 500 mg PO DAILY [facility] Last Admin: 02/27/17 10:57 Dose: 500 mg Cholecalciferol (Vitamin D3 -) 1,000 unit PO DAILY [facility] Last Admin: 02/27/17 10:57 Dose: 1,000 unit Levothyroxine Sodium (Synthroid -) 100 mcg PO AM [facility] Last Admin: 02/27/17 06:07 Dose: 100 mcg Lisinopril (Prinivil) 20 mg PO DAILY [facility] Metoprolol Tartrate (Lopressor -) 25 mg PO BID [facility] Last Admin: 02/27/17 10:57 Dose: 25 mg Non-Formulary Medication (Pravastatin Sodium [Pravastatin Sodium]) 20 mg PO HS [facility] Ranitidine HCl (Zantac -) 150 mg PO BID [facility] Last Admin: 02/27/17 10:57 Dose: 150 mg - Objective Vital Signs: Vital Signs Temperature 97.1 F L 02/27/17 08:43 Pulse Rate 55 L 02/27/17 11:14 Respiratory Rate 18 02/27/17 08:43 Blood Pressure 152/56 02/27/17 08:43 O2 Sat by Pulse Oximetry (%) 92 L 02/27/17 11:14 Constitutional: Yes: Well Nourished, No Distress, Calm Cardiovascular: Yes: Pulse Irregular. No: Tachycardia, Gallop, Murmur, Rub Respiratory: Yes: Regular, CTA Bilaterally. No: Rales, Rhonchi, Wheezes Gastrointestinal: Yes: Normal Bowel Sounds, Soft. No: Distention, Tenderness Extremities: Yes: WNL Edema: No Labs: CBC, BMP 02/27/17 05:15 02/27/17 05:15 INR, PTT INR 1.49 (0.82-1.09) H 02/22/17 22:30 Problem List - Problems (1) Weakness Code(s): R53.1 - WEAKNESS (2) Dehydration Code(s): E86.0 - DEHYDRATION (3) Renal insufficiency Code(s): N28.9 - DISORDER OF KIDNEY AND URETER, UNSPECIFIED (4) Arterial insufficiency of lower extremity Code(s): I73.9 - PERIPHERAL VASCULAR DISEASE, UNSPECIFIED (5) COPD (chronic obstructive pulmonary disease) Code(s): J44.9 - CHRONIC OBSTRUCTIVE PULMONARY DISEASE, UNSPECIFIED Qualifiers : COPD type: unspecified COPD Qualified Code(s): J44.9 - Chronic obstructive pulmonary disease, unspecified (6) HTN (hypertension) Code(s): I10 - ESSENTIAL (PRIMARY) HYPERTENSION (7) Hypothyroidism Code(s): E03.9 - HYPOTHYROIDISM, UNSPECIFIED Assessment/Plan (1) Weakness Assessment/Plan: -continue PT -will benefit from SNF placement Code(s): R53.1 - WEAKNESS (2) Dehydration Assessment/Plan: -resolved Code(s): E86.0 - DEHYDRATION (3) Renal insufficiency Assessment/Plan: -stable -nephrology following Code(s): N28.9 - DISORDER OF KIDNEY AND URETER, UNSPECIFIED (4) Arterial insufficiency of lower extremity Assessment/Plan: -continue eliquis Code(s): I73.9 - PERIPHERAL VASCULAR DISEASE, UNSPECIFIED (5) COPD (chronic obstructive pulmonary disease) Assessment/Plan: -stable -continue duonebs Code(s): J44.9 - CHRONIC OBSTRUCTIVE PULMONARY DISEASE, UNSPECIFIED Qualifiers : COPD type: unspecified COPD Qualified Code(s): J44.9 - Chronic obstructive pulmonary disease, unspecified (6) HTN (hypertension) Assessment/Plan: -nephrology following -much improved with addition of lisinopril Code(s): I10 - ESSENTIAL (PRIMARY) HYPERTENSION (7) Hypothyroidism Assessment/Plan: -TSH elevated but free T4 normal -with recent change in levothyroxine -would not expect change in TSH until 4 weeks after change, FT4 more accurate -will continue current dose, outpatient follow up 4-6 weeks after change Code(s): E03.9 - HYPOTHYROIDISM, UNSPECIFIED (8) Melena -stools occult blood positive -has allergy to lansoprazole -on ranitidine -patient complains of constipation -add stool softeners -monitor H/H, if stable plan for discharge on Thursday to SNF -if drops, will address need for interventions
[2017-02-27] MEDS: POLYETHYLENE GLYCOL 3350 119 GM BTL PO SCH ×2 (14:58→22:12)
[2017-02-27] MEDS: DOCUSATE SODIUM 100 MG CAPSULE (FP) PO SCH (22:10)
[2017-02-27] MEDS: ATORVASTATIN CA 10 MG TABLET (FP) PO SCH (22:10)
[2017-02-28] MEDS: LEVOTHYROXINE NA 100 MCG TABLET (FP) PO SCH (06:09)
[2017-02-28 07:25] LABS: BASOPHIL 0.8 % (0-2.0); EOSINOPHIL 3.4 % (0-4.5); MCH 30.8 pg (25.7-33.7); MCHC 33.9 g/dl (32.0-36.0); MEAN CELL VOLUME 90.8 fl (80-96); MEAN PLT VOLUME 9.9 fl (7.5-11.1); NEUTROPHILS 72.2 % (42.8-82.8); PLATELET COUNT 217 K/MM3 (134-434); RDW 14.4 % (11.6-15.6); WHITE BLOOD COUNT 10.8 K/mm3 (4.0-10.0)
[2017-02-28 08:00] LABS: ANION GAP 8 (8-16); CALCIUM 8.4 mg/dL (8.5-10.1); CO2 25 mmol/L (21-32); GLUCOSE,RANDOM 92 mg/dL (74-106); MAGNESIUM 1.9 mg/dL (1.8-2.4)
[2017-02-28 08:02] LABS: CREATININE 1.2 mg/dL (0.55-1.02)
--- NOTE | 2017-02-28 09:31 | PN ---
Progress Note (short form) - Note Progress Note: Renal Follow up for CKD/Hypertension Pt seen and examined at the bedside no acute complaints bp much improved Vital Signs Temperature 98.3 F 02/28/17 06:00 Pulse Rate 84 02/28/17 06:00 Respiratory Rate 20 02/28/17 06:00 Blood Pressure 156/54 02/28/17 06:00 O2 Sat by Pulse Oximetry (%) 95 02/27/17 21:00 Intake & Output 02/25/17 02/26/17 02/27/17 02/28/17 23:59 23:59 23:59 23:59 Intake Total 150 530 Output Total 200 Balance -50 530 Weight 138 lb 10.732 oz 137 lb 12.8 oz Gen: NAD CVS: RRR, No M/R Lungs: CTA, no rales Abd: soft NT/ND Ext: No edmea, clubbing or cyanosis CBC, BMP 02/28/17 05:35 02/28/17 05:35 Current Medications Amlodipine Besylate (Norvasc -) 5 mg PO DAILY [facility] Last Admin: 02/27/17 10:57 Dose: 5 mg Apixaban (Eliquis -) 5 mg PO BID [facility] Last Admin: 02/27/17 22:10 Dose: 5 mg Atorvastatin Calcium (Lipitor -) 10 mg PO HS [facility] Last Admin: 02/27/17 22:10 Dose: 10 mg Calcium Carbonate (Os-Boris 500mg -) 500 mg PO DAILY [facility] Last Admin: 02/27/17 10:57 Dose: 500 mg Cholecalciferol (Vitamin D3 -) 1,000 unit PO DAILY [facility] Last Admin: 02/27/17 10:57 Dose: 1,000 unit Docusate Sodium (Colace -) 100 mg PO BID [facility] Last Admin: 02/27/17 22:10 Dose: 100 mg Levothyroxine Sodium (Synthroid -) 100 mcg PO AM [facility] Last Admin: 02/28/17 06:09 Dose: 100 mcg Lisinopril (Prinivil) 20 mg PO DAILY [facility] Metoprolol Tartrate (Lopressor -) 25 mg PO BID [facility] Last Admin: 02/27/17 22:10 Dose: 25 mg Polyethylene Glycol (Miralax (For Daily Use) -) 17 gm PO BID [facility] Last Admin: 02/27/17 22:12 Dose: Not Given Ranitidine HCl (Zantac -) 150 mg PO BID [facility] Last Admin: 02/27/17 22:10 Dose: 150 mg 81 year old woman with PMhx of Hypertension (not well controlled as per pt), COPD/Former smoker, DVT, Hypothyrodism who presented with LE weakness with Cr of 1.4 and uncontrolled hypertension. #MARCIAL on CKD Renal function remains stable #Uncontrolled Hypertension BP at goal on combination of Linsinopril 20mg and Amlodipine Thank you Problem List - Problems (1) Gait abnormality Code(s): R26.9 - UNSPECIFIED ABNORMALITIES OF GAIT AND MOBILITY (2) Renal insufficiency Code(s): N28.9 - DISORDER OF KIDNEY AND URETER, UNSPECIFIED (3) Weakness Code(s): R53.1 - WEAKNESS (4) Acute renal failure Code(s): N17.9 - ACUTE KIDNEY FAILURE, UNSPECIFIED Qualifiers: Qualified Code(s): N17.9 - Acute kidney failure, unspecified (5) HTN (hypertension) Code(s): I10 - ESSENTIAL (PRIMARY) HYPERTENSION (6) Hydronephrosis of right kidney Code(s): N13.30 - UNSPECIFIED HYDRONEPHROSIS
--- NOTE | 2017-02-28 09:34 | PN ---
Progress Note (short form) - Note Progress Note: Patient seen and examined Chart reviewed at length. Currently sitting up in bed, alert responsive and appropriate. Denies new chest discomfort or dyspnea. Wearing nasal O2. Weakness persists No new toe pain. Labs, radiologic procedures and progress notes reviewed Medications Lisinopril (Prinivil) 20 mg PO DAILY [facility] Apixaban (Eliquis -) 5 mg PO BID [facility] Last Admin: 02/27/17 22:10 Dose: 5 mg Metoprolol Tartrate (Lopressor -) 25 mg PO BID [facility] Last Admin: 02/27/17 22:10 Dose: 25 mg Docusate Sodium (Colace -) 100 mg PO BID [facility] Last Admin: 02/27/17 22:10 Dose: 100 mg Polyethylene Glycol (Miralax (For Daily Use) -) 17 gm PO BID [facility] Last Admin: 02/27/17 22:12 Dose: Not Given Amlodipine Besylate (Norvasc -) 5 mg PO DAILY [facility] Last Admin: 02/27/17 10:57 Dose: 5 mg Ranitidine HCl (Zantac -) 150 mg PO BID [facility] Last Admin: 02/27/17 22:10 Dose: 150 mg Atorvastatin Calcium (Lipitor -) 10 mg PO HS [facility] Last Admin: 02/27/17 22:10 Dose: 10 mg Calcium Carbonate (Os-Boris 500mg -) 500 mg PO DAILY [facility] Last Admin: 02/27/17 10:57 Dose: 500 mg Levothyroxine Sodium (Synthroid -) 100 mcg PO AM [facility] Last Admin: 02/28/17 06:09 Dose: 100 mcg Cholecalciferol (Vitamin D3 -) 1,000 unit PO DAILY [facility] Last Admin: 02/27/17 10:57 Dose: 1,000 unit Selected Entries 02/28/17 06:00 Temperature 98.3 F Pulse Rate 84 Blood Pressure 156/54 Weight 137 lb 12.8 oz Laboratory Tests 02/25/17 02/28/17 02/28/17 19:30 05:35 05:35 WBC 10.8 H Hgb 12.0 Hct 35.2 Plt Count 217 Sodium 140 Potassium 4.2 Chloride 107 Carbon Dioxide 25 BUN 29 H Creatinine 1.2 H Random Glucose 92 Calcium 8.4 L Phosphorus 3.0 Magnesium 1.9 Albumin 2.9 L Chest Clear with decreased breath sounds No wheezing or rhonchi Cor Irregular rhythm No new murmur Telemetry Sinus rhythm with PVCs Abd Soft, non-tender No mass Ext No edema Left great toe bandaged Neuro No new focal deficit Assessment and Plan Weakness Likely multifactorial Will require SNF/Rehab transfer COPD Check O2 saturation on room air Long h/o smoking Peripheral arterial disease Followed by Dr Duron Toe pain improved Rectal bleeding Stable Refused further work-up Dr Acuña's note appreciated Hypothyroid Follow clinically with TSH and Free T4 Low threshold to increase dose to normalize TSH if fatigue persists HTN Stable Renal insufficiency Follow labs on current Rx Right hydronephrosis Monitor Gait abnormality Physical Therapy Constipation On Rx Dehydration Stable Hypoalbuminemia Multifactorial Acute/ chronic disease as well as nutritional factors Await transfer status decision
[2017-02-28] MEDS ORDERED: PT OWN MED DRAWER 7, Y5N ONE (10:16)
[2017-02-28] MEDS: CHOLECALCIFEROL (VITAMIN D3) 1,000 UNIT TABLET (FP) PO SCH (11:10)
[2017-02-28] MEDS: RANITIDINE HCL 150 MG TABLET (FP) PO SCH ×2 (11:10→21:35)
[2017-02-28] MEDS: DOCUSATE SODIUM 100 MG CAPSULE (FP) PO SCH ×2 (11:10→21:35)
[2017-02-28] MEDS: METOPROLOL TARTRATE 25 MG TABLET (FP) PO SCH ×2 (11:10→21:35)
[2017-02-28] MEDS: CALCIUM (OYSTER SHELL) 500 MG TABLET (FP) PO SCH (11:11)
[2017-02-28] MEDS: POLYETHYLENE GLYCOL 3350 119 GM BTL PO SCH ×2 (11:11→21:35)
[2017-02-28] MEDS: APIXABAN 5 MG TABLET PO SCH ×2 (11:11→21:35)
[2017-02-28] MEDS: amLODIPine BESYLATE 5 MG TABLET (FP) PO SCH (11:11)
[2017-02-28] MEDS: LISINOPRIL 20 MG TABLET (FP) PO SCH (11:11)
[2017-02-28] MEDS: ATORVASTATIN CA 10 MG TABLET (FP) PO SCH (21:35)
[2017-03-01] MEDS: LEVOTHYROXINE NA 100 MCG TABLET (FP) PO SCH (06:45)
[2017-03-01 07:56] LABS: BASOPHIL 0.8 % (0-2.0); EOSINOPHIL 3.7 % (0-4.5); MCH 30.7 pg (25.7-33.7); MCHC 33.9 g/dl (32.0-36.0); MEAN CELL VOLUME 90.7 fl (80-96); MEAN PLT VOLUME 9.9 fl (7.5-11.1); PLATELET COUNT 240 K/MM3 (134-434); RDW 14.4 % (11.6-15.6); WHITE BLOOD COUNT 9.1 K/mm3 (4.0-10.0)
[2017-03-01 08:44] LABS: ALBUMIN 2.9 g/dl (3.4-5.0); ALK PHOS 117 U/L (45-117); ANION GAP 11 (8-16); BILIRUBIN,TOTAL 0.7 mg/dL (0.2-1.0); CALCIUM 8.5 mg/dL (8.5-10.1); CO2 24 mmol/L (21-32); CREATININE 1.3 mg/dL (0.55-1.02); GLUCOSE,RANDOM 101 mg/dL (74-106); SGOT/AST 16 U/L (15-37); SGPT/ALT 21 U/L (12-78); TOT PROT 6.2 g/dl (6.4-8.2)
[2017-03-01] MEDS: POLYETHYLENE GLYCOL 3350 119 GM BTL PO SCH ×2 (09:28→21:41)
[2017-03-01] MEDS: RANITIDINE HCL 150 MG TABLET (FP) PO SCH ×2 (09:28→21:41)
[2017-03-01] MEDS: amLODIPine BESYLATE 5 MG TABLET (FP) PO SCH (09:28)
[2017-03-01] MEDS: DOCUSATE SODIUM 100 MG CAPSULE (FP) PO SCH ×2 (09:28→21:41)
[2017-03-01] MEDS: LISINOPRIL 20 MG TABLET (FP) PO SCH (09:28)
[2017-03-01] MEDS: CHOLECALCIFEROL (VITAMIN D3) 1,000 UNIT TABLET (FP) PO SCH (09:28)
[2017-03-01] MEDS: METOPROLOL TARTRATE 25 MG TABLET (FP) PO SCH ×2 (09:28→21:41)
[2017-03-01] MEDS: APIXABAN 5 MG TABLET PO SCH ×2 (09:28→21:41)
[2017-03-01] MEDS: CALCIUM (OYSTER SHELL) 500 MG TABLET (FP) PO SCH (09:28)
--- NOTE | 2017-03-01 10:46 | PN ---
Progress Note (short form) - Note Progress Note: Patient seen and examined Chart reviewed. Currently sitting up in bed, alert responsive and appropriate. Denies new chest discomfort or dyspnea. Wearing nasal O2. Weakness persists No new toe pain. Labs, radiologic procedures telemetry and progress notes reviewed Selected Entries 03/01/17 03/01/17 03/01/17 06:00 08:00 08:07 Temperature 98.3 F Pulse Rate 78 Respiratory 18 Rate Blood Pressure 154/69 Weight 137 lb 6.4 oz Laboratory Tests 03/01/17 03/01/17 05:35 05:35 WBC 9.1 Hgb 12.2 Hct 36.1 Plt Count 240 Sodium 139 Potassium 4.4 Chloride 104 Carbon Dioxide 24 BUN 27 H Creatinine 1.3 H Random Glucose 101 Calcium 8.5 Total Bilirubin 0.7 D AST 16 ALT 21 Alkaline Phosphatase 117 Total Protein 6.2 L Albumin 2.9 L Chest Clear with decreased breath sounds No wheezing or rhonchi Cor Irregular rhythm Slow rate No new murmur Telemetry Sinus bradycardia Fewer PVCs noted Abd Soft, non-tender No mass Ext No edema Left great toe bandaged Neuro No new focal deficit Assessment and Plan Weakness Likely multifactorial Will require SNF/Rehab transfer COPD Check O2 saturation on room air Long h/o smoking Bradycardia Asymptomatic 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
[2017-03-01] MEDS: ATORVASTATIN CA 10 MG TABLET (FP) PO SCH (21:41)
[2017-03-02 05:36] VITALS: TEMP 98.2
[2017-03-02] MEDS: LEVOTHYROXINE NA 100 MCG TABLET (FP) PO SCH (06:24)
[2017-03-02 07:26] VITALS: BP 161/69; PULSE 56
--- NOTE | 2017-03-02 09:19 | DS ---
Physical Examination Vital Signs: Vital Signs Temperature 98.2 F 03/02/17 07:22 Pulse Rate 56 L 03/02/17 07:22 Respiratory Rate 16 03/02/17 07:26 Blood Pressure 161/69 03/02/17 07:22 O2 Sat by Pulse Oximetry (%) 92 L 02/28/17 20:24 Constitutional: Yes: No Distress, Calm Eyes: No: Sclera Icterus Cardiovascular: Yes: Regular Rate and Rhythm Respiratory: Yes: CTA Bilaterally Edema: No Labs: CBC, BMP 03/01/17 05:35 03/01/17 05:35 Discharge Summary Reason For Visit: MALAISE,DEHYDRATION Current Active Problems Gait abnormality (Chronic) Malaise (Chronic) Renal insufficiency (Chronic) Weakness (Chronic) Hospital Course: Please refer to daily progress and [employer] consultant notes as well as Problem List Stable for transfer to SNF/Rehab Condition: Fair - Instructions Diet, Activity, Other Instructions: Low Na+ Activity as tolerated Referrals: Nils Gutierrez MD [Primary Care Provider] - Disposition: [facility] F[facility] - Home Medications Comprehensive Discharge Medication List: Ambulatory Orders Amlodipine Besylate [Norvasc -] 5 mg PO DAILY tablet 06/22/15 Albuterol 2.5/Ipratropium 0.5 [Duoneb -] 1 amp NEB QIDR amp 07/17/15 Metoprolol Tartrate [Lopressor -] 25 mg PO BID tablet 07/17/15 Calcium Carbonate [Calcium] 500 mg PO DAILY 03/10/16 Cholecalciferol (Vitamin D3) [Vitamin D3] 1,000 unit PO DAILY 03/10/16 Levothyroxine [Synthroid -] 100 mcg PO DAILY 03/10/16 Pravastatin Sodium 20 mg PO HS #30 tablet 03/14/16 Apixaban [Eliquis] 5 mg PO BID 08/08/16 Docusate Sodium [Colace -] 100 mg PO BID #30 cap 03/02/17 Lisinopril [Prinivil] 20 mg PO DAILY tablet 03/02/17 Polyethylene Glycol 3350 [Miralax 119 gm Btl -] 17 gm PO BID bottle 03/02/17 Ranitidine [Zantac -] 150 mg PO BID tablet 03/02/17
[2017-03-02] MEDS: CHOLECALCIFEROL (VITAMIN D3) 1,000 UNIT TABLET (FP) PO SCH (09:27)
[2017-03-02] MEDS: DOCUSATE SODIUM 100 MG CAPSULE (FP) PO SCH (09:27)
[2017-03-02] MEDS: LISINOPRIL 20 MG TABLET (FP) PO SCH (09:27)
[2017-03-02] MEDS: RANITIDINE HCL 150 MG TABLET (FP) PO SCH (09:27)
[2017-03-02] MEDS: APIXABAN 5 MG TABLET PO SCH (09:27)
[2017-03-02] MEDS: amLODIPine BESYLATE 5 MG TABLET (FP) PO SCH (09:27)
[2017-03-02] MEDS: METOPROLOL TARTRATE 25 MG TABLET (FP) PO SCH (09:27)
[2017-03-02] MEDS: CALCIUM (OYSTER SHELL) 500 MG TABLET (FP) PO SCH (09:27)
[2017-03-02] MEDS: POLYETHYLENE GLYCOL 3350 119 GM BTL PO SCH (09:28)
--- NOTE | 2017-03-02 10:46 | PN ---
Progress Note (short form) - Note Progress Note: Renal Follow up for CKD/Hypertension Pt seen and examined at the bedside no acute complaints [facility] Vital Signs Temperature 98.2 F 03/02/17 07:22 Pulse Rate 56 L 03/02/17 07:22 Respiratory Rate 16 03/02/17 07:26 Blood Pressure 161/69 03/02/17 07:22 O2 Sat by Pulse Oximetry (%) 92 L 02/28/17 20:24 Intake & Output 02/27/17 02/28/17 03/01/17 03/02/17 23:59 23:59 23:59 23:59 Intake Total 690 260 150 Balance 690 260 150 Weight 137 lb 12.8 oz 137 lb 6.4 oz 140 lb 9.6 oz Gen: NAD CVS: RRR, No M/R Lungs: CTA, no rales Abd: soft NT/ND Ext: No edmea, clubbing or cyanosis CBC, BMP 03/01/17 05:35 03/01/17 05:35 Current Medications Amlodipine Besylate (Norvasc -) 5 mg PO DAILY [facility] Last Admin: 03/02/17 09:27 Dose: 5 mg Apixaban (Eliquis -) 5 mg PO BID [facility] Last Admin: 03/02/17 09:27 Dose: 5 mg Atorvastatin Calcium (Lipitor -) 10 mg PO HS [facility] Last Admin: 03/01/17 21:41 Dose: 10 mg Calcium Carbonate (Os-Boris 500mg -) 500 mg PO DAILY [facility] Last Admin: 03/02/17 09:27 Dose: 500 mg Cholecalciferol (Vitamin D3 -) 1,000 unit PO DAILY [facility] Last Admin: 03/02/17 09:27 Dose: 1,000 unit Docusate Sodium (Colace -) 100 mg PO BID [facility] Last Admin: 03/02/17 09:27 Dose: 100 mg Levothyroxine Sodium (Synthroid -) 100 mcg PO AM [facility] Last Admin: 03/02/17 06:24 Dose: 100 mcg Lisinopril (Prinivil) 20 mg PO DAILY [facility] Last Admin: 03/02/17 09:27 Dose: 20 mg Metoprolol Tartrate (Lopressor -) 25 mg PO BID [facility] Last Admin: 03/02/17 09:27 Dose: 25 mg Polyethylene Glycol (Miralax (For Daily Use) -) 17 gm PO BID [facility] Last Admin: 03/02/17 09:28 Dose: 17 gm Ranitidine HCl (Zantac -) 150 mg PO BID [facility] Last Admin: 03/02/17 09:27 Dose: 150 mg 81 year old woman with PMhx of Hypertension (not well controlled as per pt), COPD/Former smoker, DVT, Hypothyrodism who presented with LE weakness with Cr of 1.4 and uncontrolled hypertension. #MARCIAL on CKD Renal function remains stable councled pt about avoidance of NSAIDs, Fleet enemas and importance of maintaining good oral intake of fluids #Uncontrolled Hypertension BP at goal (for pt age) on combination of Linsinopril 20mg and Amlodipine Thank you Problem List - Problems (1) Gait abnormality Code(s): R26.9 - UNSPECIFIED ABNORMALITIES OF GAIT AND MOBILITY (2) Renal insufficiency Code(s): N28.9 - DISORDER OF KIDNEY AND URETER, UNSPECIFIED (3) Weakness Code(s): R53.1 - WEAKNESS (4) Acute renal failure Code(s): N17.9 - ACUTE KIDNEY FAILURE, UNSPECIFIED Qualifiers: Acute renal failure type: unspecified Qualified Code(s): N17.9 - Acute kidney failure, unspecified (5) HTN (hypertension) Code(s): I10 - ESSENTIAL (PRIMARY) HYPERTENSION (6) Hydronephrosis of right kidney Code(s): N13.30 - UNSPECIFIED HYDRONEPHROSIS
== END 2017-03-02 11:31 | DRG 641 ==
LOC: JER 13:38 → JERBED 22:02 → INTOOBSV 22:10 → OBSVTOIN 22:10 → J2W 23:14 → OBSVTOIN 02-24 10:52 → J4W 02-27 08:58
PROVIDERS: ADMIT Internal Medicine; ATTEND Internal Medicine
DX: E86.0 Dehydration (principal); N17.9 Acute kidney failure, unspecified; N13.30 Unspecified hydronephrosis; R26.9 Unspecified abnormalities of gait and mobility; R53.1 Weakness; J44.9 Chronic obstructive pulmonary disease, unspecified; I73.9 Peripheral vascular disease, unspecified; R00.1 Bradycardia, unspecified; K59.00 Constipation, unspecified; E88.09 Other disorders of plasma-protein metabolism, not elsewhere classified; I12.9 Hypertensive chronic kidney disease with stage 1 through stage 4 chronic kidney disease, or unspecified chronic kidney disease; N18.3 Chronic kidney disease, stage 3 (moderate); Z87.891 Personal history of nicotine dependence; J45.909 Unspecified asthma, uncomplicated; E03.9 Hypothyroidism, unspecified; R63.0 Anorexia
CPT/HCPCS: 36415; 70450-TC; 70544-TC; 70551-TC; 71010-TC; 72141-TC; 80048; 80053; 80061; 81003; 81015; 82272; 82550; 82553; 82570; 82607; 82746; 83721; 83735; 84100; 84156; 84439; 84443; 84481; 84484; 85025; 85027; 85610; 85651; 86140; 93005; 93010; 93306-TC; 93880-TC; 94640; 97116-GP; 97161-GP; 99285-25; G0378

== ENCOUNTER 2017-11-28 09:29 | Inpatient (IN) | payer OTHER, MEDICARE ==
--- NOTE | 2017-11-28 09:33 | PDOC ---
History of Present Illness <Carmella Freeman - Last Filed: 11/28/17 13:06> - History of Present Illness Initial Comments: 82 year old woman with PMH of COPD, PAD, LE DVTs (dx 07/2015, on Eliquis), hypothyroidism (on synthroid), HTN, DJD, and CKD stage III who presents being found down for (assumed after speaking to family) approximately 2 days in her own urine, dehydrated, and confused. Family said that she called them on and sounded well and haven't noticed any change in her behvior recently as she was very independent, took care of her DLs, and involved in community activities. They were worried about her age and comorbidities so they discussed placement with her without success. The patient is acutely disoriented but recalls some events of a fall where she struck the back of her head on her living room gregor at home. She states that she felt weak and fell backwards but did not lose consciousness, syncopize, experience chest pain, SOB , nause,a vomiting, diarrhea, or other symptoms. 11/28/17 13:51 <Radha Blackwell - Last Filed: 11/28/17 16:12> - General Chief Complaint: Injury Stated Complaint: FALL Time Seen by Provider: 11/28/17 09:33 Past History <Carmella Freeman - Last Filed: 11/28/17 13:06> - Past Medical History COPD: Yes HTN: Yes Thyroid Disease: Yes (hypo) - Surgical History Abdominal Surgery: Yes (TUBAL LIGATION) Cholecystectomy: Yes - Suicide/Smoking/Psychosocial Hx Smoking History: Former smoker Have you smoked in the past 12 months: No Number of Cigarettes Smoked Daily: 0 If you are a former smoker, when did you quit?: 2 years ago 'Breaking Loose' booklet given: 06/19/15 Hx Alcohol Use: No Drug/Substance Use Hx: No Substance Use Type: Heroin Hx Substance Use Treatment: No <Radha Blackwell - Last Filed: 11/28/17 16:12> - Past Medical History Allergies/Adverse Reactions: Allergies Allergy/AdvReac Type Severity Reaction Status Date / Time lansoprazole [From Prevacid] Allergy Verified 11/28/17 09:39 Penicillins Allergy Hives Verified 11/28/17 09:39 prednisone Allergy Hives Verified 11/28/17 09:39 Home Medications: Ambulatory Orders Amlodipine Besylate [Norvasc -] 5 mg PO DAILY tablet 06/22/15 Albuterol 2.5/Ipratropium 0.5 [Duoneb -] 1 amp NEB QIDR amp 07/17/15 Metoprolol Tartrate [Lopressor -] 25 mg PO BID tablet 07/17/15 Calcium Carbonate [Calcium] 500 mg PO DAILY 03/10/16 Cholecalciferol (Vitamin D3) [Vitamin D3] 1,000 unit PO DAILY 03/10/16 Levothyroxine [Synthroid -] 100 mcg PO DAILY 03/10/16 Pravastatin Sodium 20 mg PO HS #30 tablet 03/14/16 Apixaban [Eliquis] 5 mg PO BID 08/08/16 Docusate Sodium [Colace -] 100 mg PO BID #30 cap 03/02/17 Lisinopril [Prinivil] 20 mg PO DAILY tablet 03/02/17 Polyethylene Glycol 3350 [Miralax 119 gm Btl -] 17 gm PO BID bottle 03/02/17 Ranitidine [Zantac -] 150 mg PO BID tablet 03/02/17 Review of Systems - Review of Systems Able to Perform ROS?: No (disoriented) <Radha Blackwell - Last Filed: 11/28/17 16:12> *Physical Exam - Vital Signs Last Vital Signs Temp Pulse Resp BP Pulse Ox 97.9 F 80 26 H 193/71 95 11/28/17 09:32 11/28/17 09:32 11/28/17 09:32 11/28/17 09:32 11/28/17 11:04 <Carmella Freeman - Last Filed: 11/28/17 13:06> - Physical Exam General Appearance: Yes: Appropriately Dressed, Apparent Distress, Disheveled, Mild Distress, Thin HEENT: positive: EOMI, NATHANIEL. negative: Normal ENT Inspection (Dry mucous membranes) Neck: positive: Trachea midline, Normal Thyroid, Supple. negative: Tender, Rigid Respiratory/Chest: negative: Chest Tender, Lungs Clear, Normal Breath Sounds ( RLL decreased air movment with overall air movement deficiency), Respiratory Distress, Accessory Muscle Use Cardiovascular: positive: Regular Rhythm, Regular Rate Gastrointestinal/Abdominal: positive: Normal Bowel Sounds, Flat, Soft. negative : Tender Musculoskeletal: positive: Normal Inspection (Althouh she complains of pain in her right hip, left knee, and thoracic spine, there was no tenerness, obvious deformity, or limitation in active/ pasive ROM.). negative: CVA Tenderness Extremity: positive: Normal Capillary Refill, Normal Inspection, Normal Range of Motion. negative: Tender Integumentary: positive: Normal Color, Dry, Warm Neurologic: positive: Alert, Normal Mood/Affect. negative: Fully Oriented (AO x1 to person) <Radha Blackwell - Last Filed: 11/28/17 16:12> ED Treatment Course - LABORATORY CBC & Chemistry Diagram: 11/28/17 10:38 11/28/17 10:38 - ADDITIONAL ORDERS Additional order review: Laboratory Results 11/28/17 11/28/17 11/28/17 10:38 10:38 10:38 PT with INR 14.20 H INR 1.26 H Sodium Potassium Chloride Carbon Dioxide Anion Gap BUN Creatinine Creat Clearance w eGFR Random Glucose Lactic Acid 2.3 H* Calcium Total Bilirubin AST ALT Alkaline Phosphatase Creatine Kinase Cancelled Troponin I Cancelled Total Protein Albumin 11/28/17 11/28/17 10:38 10:38 PT with INR INR Sodium Cancelled Potassium Cancelled Chloride Cancelled Carbon Dioxide Cancelled Anion Gap Cancelled BUN Cancelled Creatinine Cancelled Creat Clearance w eGFR Cancelled Random Glucose Cancelled Lactic Acid Calcium Cancelled Total Bilirubin Cancelled AST Cancelled ALT Cancelled Alkaline Phosphatase Cancelled Creatine Kinase Cancelled Troponin I Total Protein Cancelled Albumin Cancelled 11/28/17 10:38 RBC 3.86 MCV 91.0 MCHC 33.6 RDW 14.3 MPV 10.6 Neutrophils % 89.5 H D Lymphocytes % 5.1 L D Monocytes % 5.2 Eosinophils % 0.0 D Basophils % 0.2 - RADIOLOGY Radiograph Interpretation: 11/28/17 13:[address] Impression: No significant interval change. Moderate atrophy and chronic microvascular ischemic disease changes without gross evidence of acute intracranial pathology. Reported By: Shawn Cadena MD 11/28/17 1100 Chest X-ray Since 02/22/17, slightly larger heart with unfolded aorta, degenerative changes and increased interstitial markings. The angles are sharp and the soft tissues are intact. There many be a pleural-based density along the lower right chest wall Reported By: Jaswinder Esposito MD 11/28/17 1133 - Medications Given in the ED: ED Medications Discontinued Medications Generic Name Dose Route Start Last Admin Trade Name Teri PRN Reason Stop Dose Admin Amlodipine Besylate 5 mg 11/28/17 12:08 11/28/17 12:23 Norvasc - PO 11/28/17 12:09 5 mg ONCE ONE Administration Hydralazine HCl 10 mg 11/28/17 11:53 11/28/17 12:36 Apresoline Injection - IVPUSH 11/28/17 11:54 Not Given ONCE ONE Lisinopril 20 mg 11/28/17 12:08 11/28/17 12:23 Prinivil PO 11/28/17 12:09 20 mg ONCE ONE Administration Metoprolol Tartrate 25 mg 11/28/17 12:09 11/28/17 12:23 Lopressor - PO 11/28/17 12:10 25 mg ONCE ONE Administration Sodium Chloride 1,000 ml 11/28/17 10:35 11/28/17 10:38 Normal Saline - IV 11/28/17 10:36 1,000 ml ONCE ONE Administration <Carmella Freeman - Last Filed: 11/28/17 13:06> - LABORATORY CBC & Chemistry Diagram: 11/28/17 10:38 11/28/17 12:10 <Radha Blackwell - Last Filed: 11/28/17 16:12> Medical Decision Making - Medical Decision Making 82 year odl female found down in her own urine. States that she fell with unclear etiology, but states she was dizzy and fell backwards, Head CT not demonstrating acute pathology and labs demonstrating rhabdomyolsis with potential infectious etiology with WBC at 17. Unclear source of infection but possible pulmonary source given Xr demonstrating RLL chest wall density. Patient also has a troponemia that is likely demand in nature without obvious EKG changes. Repeat labs pending after 2nd liter NS and patient signed out without new bony pathology on MSK films with exception of mid thoracic vertebral body compression of unknown chronicity. Spoke to family who is available for phone calls and have a full medication list (Sasha Briceno: ). 11/28/17 16:05 <Radha Blackwell - Last Filed: 11/28/17 16:12> *DC/Admit/Observation/Transfer <Carmella Freeman Last Filed: 11/28/17 13:06> - Discharge Dispostion Admit: Yes <Radha Blackwell - Last Filed: 11/28/17 16:12> Diagnosis at time of Disposition: Renal insufficiency, Troponin I above reference range, Dehydration Altered mental status Qualifiers: Altered mental status type: disorientation Qualified Code(s): R41.0 - Disorientation, unspecified - Discharge Dispostion Condition at time of disposition: Stable
[2017-11-28 09:46] VITALS: BMI 21.6
--- NOTE | 2017-11-28 10:13 | PDOC ---
Attending Attestation - Resident Resident Name: Radha Blackwell - ED Attending Attestation I have performed the following: I have examined & evaluated the patient, The case was reviewed & discussed with the resident, I agree w/resident's findings & plan, Exceptions are as noted - Medical Decision Making 11/28/17 10:12 82 yo F wit h/o htn, here s/p fall prolonged time on the floor. differential dehydration, infection such as pna, uti, renalfailure , electrolyte abnorality, traumatic injury. plan labs cpk trop. lactate. ua cxr pelvic xray ct head. iv hydration. will require admission. <JeovanyHenrika - Last Filed: 11/28/17 10:12> - HPI HPI: 11/28/17 10:27 Patient is an 82 year old woman with PMH of COPD, PAD, LE DVTs (dx 07/2015), hypothyroidism, HTN, DJD, and CKD stage III, who presents today s/p fall 2 days ago. Patient states that on she was walking to the bathroom when she fell and was unable to get up. Patients family found her on the floor in her own urine. She is currently complaining of right hip, left knee and mid back pain. Patient normally lives alone and was found to be in a confused state. When asked what year it was, she stated "1979". PCP: Albert Gutierrez - Physicial Exam PE: 11/28/17 10:27 GENERAL: Awake, alert, and fully oriented, in no acute distress HEAD: Atraumatic EYES: PERRLA, EOMI, sclera anicteric, conjunctiva clear ENT: Auricles normal inspection, nares patent, Dry, crusted mucosa. NECK: Normal ROM, supple, no lymphadenopathy, JVD, or masses LUNGS: Breath sounds equal, clear to auscultation bilaterally. No wheezes, and no crackles HEART: Regular rate and rhythm, normal S1 and S2, no murmurs, rubs or gallops ABDOMEN: Soft, nontender, normoactive bowel sounds. No guarding, no rebound. No masses EXTREMITIES: Moving all extremities, FROM, no edema. No clubbing or cyanosis. No cords, erythema. Right lateral hip, left knee tenderness. Pelvis is stable. NEUROLOGICAL: AOx1. Normal speech. Gait not tested. SKIN: Warm, Dry, no ecchymosis, no hematomas, no breakdown. Normal turgor, no rashes or lesions noted. <Carmella Freeman - Last Filed: 11/28/17 14:08>
[2017-11-28] MEDS ORDERED: SODIUM CHLORIDE 0.9% 1000 ML INFUS.BAG IV ONE (10:35)
[2017-11-28 11:04] LABS: BASO % 0.2 % (0-2.0); HEMATOCRIT 35.1 % (32.4-45.2); HEMOGLOBIN 11.8 GM/dL (10.7-15.3); LYMPH % 5.1 % (8-40); MCH 30.6 pg (25.7-33.7); MCHC 33.6 g/dl (32.0-36.0); MEAN PLT VOLUME 10.6 fl (7.5-11.1); MONO % 5.2 % (3.8-10.2); NEUT % 89.5 % (42.8-82.8); PLATELET COUNT 199 K/MM3 (134-434); RBC 3.86 M/mm3 (3.60-5.2); RDW 14.3 % (11.6-15.6); WHITE BLOOD COUNT 17.2 K/mm3 (4.0-10.0)
[2017-11-28 11:18] LABS: INR 1.26 (0.82-1.09); PROTHROMBIN TIME (PATIENT) 14.2 SEC (9.7-13.0)
[2017-11-28] MEDS ORDERED: hydrALAZINE HCL 20 MG/ML VIAL IVPUSH ONE (11:53)
[2017-11-28] MEDS ORDERED: LISINOPRIL 20 MG TABLET (FP) PO ONE (12:08)
[2017-11-28] MEDS ORDERED: amLODIPine BESYLATE 5 MG TABLET (FP) PO ONE (12:08)
[2017-11-28] MEDS ORDERED: METOPROLOL TARTRATE 25 MG TABLET (FP) PO ONE (12:09)
[2017-11-28] MEDS ORDERED: amLODIPine BESYLATE 5 MG TABLET (FP) ONE (12:21)
[2017-11-28] MEDS ORDERED: METOPROLOL TARTRATE 25 MG TABLET (FP) ONE (12:21)
[2017-11-28] MEDS ORDERED: LISINOPRIL 20 MG TABLET (FP) ONE (12:21)
[2017-11-28 13:15] LABS: ALBUMIN 3.4 g/dl (3.4-5.0); ALK PHOS 82 U/L (45-117); ANION GAP 10 (8-16); BILIRUBIN,TOTAL 0.8 mg/dL (0.2-1.0); BLOOD UREA NITROGEN 39 mg/dL (7-18); CALCIUM 8.4 mg/dL (8.5-10.1); CHLORIDE 111 mmol/L (98-107); CO2 24 mmol/L (21-32); CREATININE 2.1 mg/dL (0.55-1.02); GLUCOSE,RANDOM 114 mg/dL (74-106); POTASSIUM 3.8 mmol/L (3.5-5.1); SGOT/AST 42 U/L (15-37); SGPT/ALT 18 U/L (12-78); SODIUM 145 mmol/L (136-145); TOT PROT 7.1 g/dl (6.4-8.2)
[2017-11-28] MEDS ORDERED: ALBUTEROL SO4 2.5/IPRATROPIUM 0.5 INH SOL 3 ML VIAL.NEB. NEB ONE ×2 (13:22→14:06)
[2017-11-28 13:38] LABS: URINE APPEARANCE SLCLOUDY; URINE BILIRUBIN NEGATIVE (<2.0 mg/dL); URINE COLOR YELLOW; URINE GLUCOSE (UA) 1+ (NEGATIVE); URINE KETONE TRACE (NEGATIVE); URINE LEUK ESTERASE NEGATIVE (NEGATIVE); URINE NITRITE NEGATIVE (NEGATIVE); URINE PROTEIN 3+ (NEGATIVE); URINE UROBILINOGEN NEGATIVE mg/dL (0.2-1.0)
[2017-11-28 13:42] LABS: HCG,QUALITATIVE URINE NEGATIVE
--- NOTE | 2017-11-28 14:18 | HP ---
CHIEF COMPLAINT: Found on the floor for unknown period of time PCP: Dr. Gutierrez HISTORY OF PRESENT ILLNESS: This is an 82 year old female with PMHx of COPD, PAD, lower extremity DVTs (dx 07/2015, on Eliquis), hypothyroidism, HTN, DJD, CKD stage III who presented to the ED after being found on the ground in her own urine, confused for an unknown period of time. The patient is A&Ox2 (person, place) and she knows the president. She reports two days ago she got up off the couch, felt dizzy and fell to the ground. She does not recall if she hit any part of her body. She does not know if she lost consciousness. She states she was unable to get up and was on the ground for 2 days. She states she feels weak but denies any chest pain, nausea, vomiting, diarrhea, palpitations, headache, urinary symptoms. ER course was notable for: (1) Temp 97.9, pulse 80, BP 193/71, resp 26, O2 86% on RA (2) WBC 17.2 (3) Cr 2.1, lactic acid 2.3->1.8, CPK 1141, trop 0.07 (4) Head CT: moderate atrophy and chronic microvascular ischemic disease changes without gross evidence of acute intracranial pathology (5) Chest X-ray: increased interstitial markings. The angles are sharp and the soft tissues are intact. There may be a pleural-based density along the lower right chest wall Recent Travel: denies PAST MEDICAL HISTORY: as above, obtained from chart review PAST SURGICAL HISTORY: unknown Social History: Smoking: denies Alcohol: denies Drugs: denies Family History: Allergies lansoprazole [From Prevacid] Allergy (Verified 11/28/17 09:39) Penicillins Allergy (Verified 11/28/17 09:39) Hives prednisone Allergy (Verified 11/28/17 09:39) Hives HOME MEDICATIONS: Home Medications Medication Instructions Recorded Amlodipine Besylate [Norvasc -] 5 mg PO DAILY tablet 06/22/15 Albuterol 2.5/Ipratropium 0.5 1 amp NEB QIDR amp 07/17/15 [Duoneb -] Metoprolol Tartrate [Lopressor -] 25 mg PO BID tablet 07/17/15 Calcium Carbonate [Calcium] 500 mg PO DAILY 03/10/16 Cholecalciferol (Vitamin D3) 1,000 unit PO DAILY 03/10/16 [Vitamin D3] Levothyroxine [Synthroid -] 100 mcg PO DAILY 03/10/16 Pravastatin Sodium 20 mg PO HS #30 tablet 03/14/16 Apixaban [Eliquis] 5 mg PO BID 08/08/16 Docusate Sodium [Colace -] 100 mg PO BID #30 cap 03/02/17 Lisinopril [Prinivil] 20 mg PO DAILY tablet 03/02/17 Polyethylene Glycol 3350 [Miralax 17 gm PO BID bottle 03/02/17 119 gm Btl -] Ranitidine [Zantac -] 150 mg PO BID tablet 03/02/17 REVIEW OF SYSTEMS CONSTITUTIONAL: Generalized weakness after being found on the ground Absent: fever, chills, diaphoresis, generalized weakness, malaise, loss of appetite, weight change HEENT: Absent: rhinorrhea, nasal congestion, throat pain, throat swelling, difficulty swallowing, mouth swelling, ear pain, eye pain, visual changes CARDIOVASCULAR: Absent: chest pain, syncope, palpitations, irregular heart rate, lightheadedness , peripheral edema RESPIRATORY: Absent: cough, shortness of breath, dyspnea with exertion, orthopnea, wheezing, stridor, hemoptysis GASTROINTESTINAL: Absent: abdominal pain, abdominal distension, nausea, vomiting, diarrhea, constipation, melena, hematochezia GENITOURINARY: Absent: dysuria, frequency, urgency, hesitancy, hematuria, flank pain, genital pain MUSCULOSKELETAL: Absent: myalgia, arthralgia, joint swelling, back pain, neck pain SKIN: Absent: rash, itching, pallor HEMATOLOGIC/IMMUNOLOGIC: Absent: easy bleeding, easy bruising, lymphadenopathy, frequent infections ENDOCRINE: Absent: unexplained weight gain, unexplained weight loss, heat intolerance, cold intolerance NEUROLOGIC: Dizziness that lead to a fall. No LOC reported Absent: headache, focal weakness or paresthesias, unsteady gait, seizure, bladder or bowel incontinence PSYCHIATRIC: Absent: anxiety, depression, suicidal or homicidal ideation, hallucinations. PHYSICAL EXAMINATION Vital Signs - 24 hr 11/28/17 11/28/17 11/28/17 09:32 11:04 13:45 Temperature 97.9 F Pulse Rate 80 Pulse Rate [ 84 Apical] Respiratory 26 H 17 Rate Blood Pressure 193/71 Blood Pressure 194/84 [Right Arm] O2 Sat by Pulse 86 L 95 98 Oximetry (%) GENERAL: Awake, A&Ox2 (person, place only), in no acute distress. HEAD: Normal with no signs of trauma. EYES: Pupils equal, round and reactive to light, extraocular movements intact, sclera anicteric, conjunctiva clear. No lid lag. EARS, NOSE, THROAT: Dry mucus membranes. Ears normal, nares patent, oropharynx clear without exudates NECK: Normal range of motion LUNGS: Breath sounds equal, clear to auscultation bilaterally. No wheezes, and no crackles. No accessory muscle use. HEART: Regular rate and rhythm ABDOMEN: Soft, nontender, not distended, normoactive bowel sounds, no guarding, no rebound, no masses MUSCULOSKELETAL: Normal range of motion at all joints. No CVA tenderness. UPPER EXTREMITIES: 2+ pulses, warm, well-perfused. No cyanosis. No clubbing. No peripheral edema. LOWER EXTREMITIES: 2+ pulses, warm, well-perfused. No calf tenderness. No peripheral edema. PSYCHIATRIC: Cooperative. Good eye contact. Appropriate mood and affect. SKIN: Warm, dry, no rashes or lesions noted, normal capillary refill. Laboratory Results - last 24 hr 11/28/17 11/28/17 11/28/17 10:38 10:38 10:38 WBC 17.2 H D RBC 3.86 Hgb 11.8 Hct 35.1 MCV 91.0 MCH 30.6 MCHC 33.6 RDW 14.3 Plt Count 199 MPV 10.6 Neutrophils % 89.5 H D Lymphocytes % 5.1 L D Monocytes % 5.2 Eosinophils % 0.0 D Basophils % 0.2 PT with INR INR Sodium Cancelled Potassium Cancelled Chloride Cancelled Carbon Dioxide Cancelled Anion Gap Cancelled BUN Cancelled Creatinine Cancelled Creat Clearance w eGFR Cancelled Random Glucose Cancelled Lactic Acid Calcium Cancelled Total Bilirubin Cancelled AST Cancelled ALT Cancelled Alkaline Phosphatase Cancelled Creatine Kinase Cancelled Creatine Kinase Index CK-MB (CK-2) Troponin I Total Protein Cancelled Albumin Cancelled Urine Color Urine Appearance Urine pH Ur Specific [place] Urine Protein Urine Glucose (UA) Urine Ketones Urine Blood Urine Nitrite Urine Bilirubin Urine Urobilinogen Ur Leukocyte Esterase Urine HCG, Qual 04/28/18 04/28/18 04/28/18 10:38 10:38 10:38 WBC RBC Hgb Hct MCV MCH MCHC RDW Plt Count MPV Neutrophils % Lymphocytes % Monocytes % Eosinophils % Basophils % PT with INR 14.20 H INR 1.26 H Sodium Potassium Chloride Carbon Dioxide Anion Gap BUN Creatinine Creat Clearance w eGFR Random Glucose Lactic Acid 2.3 H* Calcium Total Bilirubin AST ALT Alkaline Phosphatase Creatine Kinase Cancelled Creatine Kinase Index CK-MB (CK-2) Troponin I Cancelled Total Protein Albumin Urine Color Urine Appearance Urine pH Ur Specific [place] Urine Protein Urine Glucose (UA) Urine Ketones Urine Blood Urine Nitrite Urine Bilirubin Urine Urobilinogen Ur Leukocyte Esterase Urine HCG, Qual 11/28/17 11/28/17 11/28/17 11:52 12:10 12:10 WBC RBC Hgb Hct MCV MCH MCHC RDW Plt Count MPV Neutrophils % Lymphocytes % Monocytes % Eosinophils % Basophils % PT with INR INR Sodium 145 Potassium 3.8 Chloride 111 H Carbon Dioxide 24 Anion Gap 10 BUN 39 H Creatinine 2.1 H Creat Clearance w eGFR 22.60 Random Glucose 114 H Lactic Acid Calcium 8.4 L Total Bilirubin 0.8 AST 42 H ALT 18 Alkaline Phosphatase 82 Creatine Kinase 1141 H 1102 H Creatine Kinase Index 0.9 0.9 CK-MB (CK-2) 10.921 H 10.898 H Troponin I 0.07 H Total Protein 7.1 Albumin 3.4 Urine Color Urine Appearance Urine pH Ur Specific [place] Urine Protein Urine Glucose (UA) Urine Ketones Urine Blood Urine Nitrite Urine Bilirubin Urine Urobilinogen Ur Leukocyte Esterase Urine HCG, Qual 11/28/17 13:20 WBC RBC Hgb Hct MCV MCH MCHC RDW Plt Count MPV Neutrophils % Lymphocytes % Monocytes % Eosinophils % Basophils % PT with INR INR Sodium Potassium Chloride Carbon Dioxide Anion Gap BUN Creatinine Creat Clearance w eGFR Random Glucose Lactic Acid Calcium Total Bilirubin AST ALT Alkaline Phosphatase Creatine Kinase Creatine Kinase Index CK-MB (CK-2) Troponin I Total Protein Albumin Urine Color Yellow Urine Appearance Slcloudy Urine pH 6.0 Ur Specific [place] 1.020 Urine Protein 3+ H Urine Glucose (UA) 1+ H Urine Ketones Trace H Urine Blood 2+ H Urine Nitrite Negative Urine Bilirubin Negative Urine Urobilinogen Negative Ur Leukocyte Esterase Negative Urine HCG, Qual Negative Assessment: This is an 82 year old female with PMHx of COPD, PAD, lower extremity DVTs (dx 07/2015, on Eliquis), hypothyroidism, HTN, DJD, CKD stage III who presented to the ED after being found on the ground in her own urine, confused for an unknown period of time. Plan: 1) Rhabdomyolysis - Likely 2/2 laying on the ground x2 days - IV hydration - Continue to trend CPK - Encourage po intake 2) MARCIAL on CKD stage III - Likely pre-renal 2/2 dehydration - Continue IV fluids - Kidney ultrasound: both kidneys are small and echogenic compatible with chronic medical renal disease. Mild right renal hydronephrosis and a small left renal simple cyst measuring 1.6cm without gross evidence of renal stones - IV fluids - F/u nephrology consult 3) Elevated troponin - Patient denies any chest pain - Cardiac monitoring - Continue to trend - Elevation likely demand ischemia in the setting of above 4) Fall - Patient reports dizziness prior to falling, however denies loss of consciousness - F/u ECHO - Continue cardiac monitoring - F/u carotid dopplers - Imaging reviewed 5) HTN - Norvasc 5mg - Lopressor - Hold Lisinopril 2/2 MARCIAL 6) Hypothyroidism - Continue Synthroid - F/u TSH 7) Hx of lower extremity DVTs - Continue Eliquis 8) F/E/N: - Pureed diet, will ask daughter to bring in dentures - Monitor electrolytes 9) Prophylaxis: - On Eliquis - PT evaluation 20) Dispo: - Requires continued inpatient care CODE STATUS: FULL CODE Visit type - Emergency Visit Emergency Visit: Yes ED Registration Date: 11/28/17 Care time: The patient presented to the Emergency Department on the above date and was hospitalized for further evaluation of their emergent condition. - New Patient This patient is new to me today: Yes Date on this admission: 11/28/17 - Critical Care Critical Care patient: No Hospitalist Screening - Colonoscopy Questionnaire Colonoscopy Questionnaire: Colonoscopy Questionnaire - Patient: 50 - 75 years old and never had a screening colonoscopy: Unknown History of colon or rectal polyps, or CA: Unknown History of IBD, Crohn's disease or UC: Unknown History of abdominal radiation therapy as a child: Unknown - Relative: 1 with colon or rectal CA, or polyps at age 60 or younger: Unknown Colon or rectal CA diagnosed at age 45 or younger: Unknown Multiple relatives with colon or rectal CA: Unknown - Outcome: Screening Result: Negative Screen
[2017-11-28 14:28] LABS: EPI CELLS RARE /HPF (FEW); URINE HYALINE CAST 1 /lpf
[2017-11-28] MEDS: CHOLECALCIFEROL (VITAMIN D3) 1,000 UNIT TABLET (FP) PO SCH (16:08)
--- NOTE | 2017-11-28 18:22 | CON.NEP ---
Consult - History of Present Illness Chief Complaint: abnormal kidney function History of Present Illness: htn, s/p fall prolonged time on the floor. she was walking to the bathroom when she fell and was unable to get up. she was found on the floor in her own urine. right hip, left knee and mid back pain. 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) Cardio/Vascular: Yes: Deep Vein Thrombosis, HTN Renal/: Yes: Renal Inusuff (suspect underlying CKD stage III w/Scr of 1.2mg/dL ) Musculoskeletal: Yes: Other (compression fracture) Endocrine: Yes: Hypothyroidism - Past Surgical History Past Surgical History: Yes: Cholecystectomy (Lap), (x2) - Alcohol/Substance Use Hx Alcohol Use: No History of Substance Use: reports: None - Smoking History Smoking history: Former smoker Have you smoked in the past 12 months: No Aproximately how many cigarettes per day: 0 If you are a former smoker, when did you quit?: 2 years ago - Social History Usual Living Arrangement: Alone ADL: Independent 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 History of Recent Travel: No Home Medications - Allergies Allergies/Adverse Reactions: Allergies Allergy/AdvReac Type Severity Reaction Status Date / Time lansoprazole [From Prevacid] Allergy Verified 11/28/17 09:39 Penicillins Allergy Hives Verified 11/28/17 09:39 prednisone Allergy Hives Verified 11/28/17 09:39 - Home Medications Home Medications: Ambulatory Orders Amlodipine Besylate [Norvasc -] 5 mg PO DAILY tablet 06/22/15 Albuterol 2.5/Ipratropium 0.5 [Duoneb -] 1 amp NEB QIDR amp 07/17/15 Metoprolol Tartrate [Lopressor -] 25 mg PO BID tablet 07/17/15 Calcium Carbonate [Calcium] 500 mg PO DAILY 03/10/16 Cholecalciferol (Vitamin D3) [Vitamin D3] 1,000 unit PO DAILY 03/10/16 Levothyroxine [Synthroid -] 100 mcg PO DAILY 03/10/16 Pravastatin Sodium 20 mg PO HS #30 tablet 03/14/16 Apixaban [Eliquis] 5 mg PO BID 08/08/16 Docusate Sodium [Colace -] 100 mg PO BID #30 cap 03/02/17 Lisinopril [Prinivil] 20 mg PO DAILY tablet 03/02/17 Polyethylene Glycol 3350 [Miralax 119 gm Btl -] 17 gm PO BID bottle 03/02/17 Ranitidine [Zantac -] 150 mg PO BID tablet 03/02/17 Family Disease History - Family Disease History Family Disease History: Other: Father ( 52: sudden), Mother (: 76: unclear causes), Brother (5, unclear causes), Sister (2, unclear causes), Son (1, healthy), Daughter (1, healthy) Nephrology Consult - Height Height: 5 ft 5 in - Weight Weight: 130 lb - BMI Body Mass Index (BMI): 21.6 - Lab Results CBC,BMP: CBC, BMP 11/28/17 10:38 Anion Gap: Anion Gap Anion Gap 10 (8-16) 11/28/17 12:10 - Physical Examination Vital Signs: Vital Signs Temperature 97.9 F 11/28/17 09:32 Pulse Rate 82 11/28/17 16:15 Respiratory Rate 18 11/28/17 16:20 Blood Pressure 194/84 11/28/17 13:45 O2 Sat by Pulse Oximetry (%) 98 11/28/17 16:20 Constitutional: Yes: Mild Distress Eyes: Yes: WNL, Conjunctiva Clear, EOM Intact HENT: Yes: WNL, Atraumatic, Normocephalic Neck: Yes: WNL, Supple, Trachea Midline Cardiovascular: Yes: WNL, Regular Rate and Rhythm Respiratory: Yes: WNL, Regular, CTA Bilaterally Gastrointestinal: Yes: WNL, Normal Bowel Sounds Renal/: Yes: WNL Musculoskeletal: Yes: WNL Extremities: Yes: WNL Edema: No Integumentary: Yes: WNL Neurological: Yes: WNL, Alert, Oriented Psychiatric: Yes: Alert Assessment/Plan frail elderly F acute on chronic renal clinically dehydrated at risk for rhabdomyolysis , reassuring that ck is coming down mild right hydronephrosis on sono noted could be chronic may need re-eval Plan- cautious hydration overnight with 1/2 ns plus KCl follow cmp in am u/a and urine lytes
[2017-11-28 19:13] LABS: ALBUMIN 3.3 g/dl (3.4-5.0); ALK PHOS 88 U/L (45-117); ANION GAP 11 (8-16); BILIRUBIN,TOTAL 0.7 mg/dL (0.2-1.0); BLOOD UREA NITROGEN 38 mg/dL (7-18); CHLORIDE 114 mmol/L (98-107); CO2 20 mmol/L (21-32); GLUCOSE,RANDOM 114 mg/dL (74-106); POTASSIUM 3.9 mmol/L (3.5-5.1); SGOT/AST 42 U/L (15-37); SGPT/ALT 17 U/L (12-78); SODIUM 145 mmol/L (136-145); TOT PROT 7.1 g/dl (6.4-8.2)
[2017-11-28] MEDS: DOCUSATE SODIUM 100 MG CAPSULE (FP) PO SCH (22:00)
[2017-11-28] MEDS: ATORVASTATIN CA 10 MG TABLET (FP) PO SCH (22:00)
[2017-11-28] MEDS: METOPROLOL TARTRATE 25 MG TABLET (FP) PO SCH (22:00)
[2017-11-28] MEDS: APIXABAN 5 MG TABLET PO SCH (22:00)
[2017-11-28] MEDS ORDERED: PATIENT'S OWN MEDICATION (NON-FORMULARY) (Pravastatin Sodium [Pravastatin Sodium] 20 MG) PO SCH (22:00)
[2017-11-28] MEDS: SODIUM CHLORIDE 0.45%/POT 20 MEQ/1,000 ML INFUS.BAG IV SCH (23:09)
[2017-11-29] MEDS: ALBUTEROL SO4 2.5/IPRATROPIUM 0.5 INH SOL 3 ML VIAL.NEB. NEB SCH ×4 (00:01→17:10)
[2017-11-29 07:25] LABS: BASO % 0.3 % (0-2.0); HEMATOCRIT 29.4 % (32.4-45.2); HEMOGLOBIN 10.2 GM/dL (10.7-15.3); LYMPH % 8.4 % (8-40); MCH 31.4 pg (25.7-33.7); MCHC 34.7 g/dl (32.0-36.0); MEAN CELL VOLUME 90.4 fl (80-96); MEAN PLT VOLUME 10.1 fl (7.5-11.1); MONO % 7.7 % (3.8-10.2); NEUT % 83.6 % (42.8-82.8); PLATELET COUNT 143 K/MM3 (134-434); RBC 3.26 M/mm3 (3.60-5.2); WHITE BLOOD COUNT 12.4 K/mm3 (4.0-10.0)
[2017-11-29 07:54] LABS: CHLORIDE 114 mmol/L (98-107); POTASSIUM 4.1 mmol/L (3.5-5.1); SODIUM 145 mmol/L (136-145)
[2017-11-29 08:09] LABS: ALBUMIN 2.9 g/dl (3.4-5.0); ALK PHOS 79 U/L (45-117); ANION GAP 8 (8-16); BILIRUBIN,TOTAL 0.7 mg/dL (0.2-1.0); BLOOD UREA NITROGEN 47 mg/dL (7-18); CALCIUM 7.9 mg/dL (8.5-10.1); CO2 23 mmol/L (21-32); CREATININE 2.1 mg/dL (0.55-1.02); GLUCOSE,RANDOM 112 mg/dL (74-106); PHOSPHOROUS 2.9 mg/dL (2.5-4.9); SGOT/AST 34 U/L (15-37); SGPT/ALT 16 U/L (12-78); TOT PROT 6.4 g/dl (6.4-8.2)
[2017-11-29] MEDS: CHOLECALCIFEROL (VITAMIN D3) 1,000 UNIT TABLET (FP) PO SCH (10:37)
[2017-11-29] MEDS: RANITIDINE HCL 150 MG TABLET (FP) PO SCH (10:38)
[2017-11-29] MEDS: APIXABAN 5 MG TABLET PO SCH ×2 (10:38→21:31)
[2017-11-29] MEDS: DOCUSATE SODIUM 100 MG CAPSULE (FP) PO SCH ×2 (10:38→21:31)
[2017-11-29] MEDS: METOPROLOL TARTRATE 25 MG TABLET (FP) PO SCH ×2 (10:38→21:31)
[2017-11-29] MEDS: amLODIPine BESYLATE 5 MG TABLET (FP) PO SCH (10:38)
[2017-11-29] MEDS: LEVOTHYROXINE NA 100 MCG TABLET (FP) PO SCH (10:38)
[2017-11-29] MEDS: CALCIUM (OYSTER SHELL) 500 MG TABLET (FP) PO SCH (10:38)
--- NOTE | 2017-11-29 10:45 | EKG ---
Test Reason : Blood Pressure : / mmHG Vent. Rate : 080 BPM Atrial Rate : 416 BPM P-R Int : 150 ms QRS Dur : 094 ms QT Int : 434 ms P-R-T Axes : 065 037 -07 degrees QTc Int : 500 ms SINUS RHYTHM PREMATURE ATRIAL COMPLEXES LEFT VENTRICULAR HYPERTROPHY WITH REPOLARIZATION ABNORMALITY PROLONGED QT ABNORMAL ECG WHEN COMPARED WITH ECG OF 22-FEB-2017 15:28, CURRENT UNDETERMINED RHYTHM PRECLUDES RHYTHM COMPARISON, NEEDS REVIEW T WAVE INVERSION NO LONGER EVIDENT IN LATERAL LEADS QT HAS LENGTHENED Confirmed by ANURAG QUINTANA MD ([id number]) on 11/29/2017 10:45:12 AM Referred By: Confirmed By:ANURAG QUINTANA MD
--- NOTE | 2017-11-29 12:24 | CONSULT ---
Consult - text type - Consultation Consultation Note: Neurology HISTORY OF PRESENT ILLNESS: This is an 82 year old female with PMHx of COPD, PAD, lower extremity DVTs (dx 07/2015, on Eliquis), hypothyroidism, HTN, DJD, CKD stage III who presented to the ED after being found on the ground in her own urine, confused for an unknown period of time. During my eval, not able to tell me date. Does know she' s at [facility] but not able to state the name of president. Reportedly two days ago she got up off the couch, felt dizzy and fell to the ground. She does not recall if she hit any part of her body. She does not know if she lost consciousness. She states she was unable to get up and was on the ground for 2 days. She states she feels weak but denies any chest pain, nausea, vomiting, diarrhea, palpitations, headache, urinary symptoms. Was admitted with WBC 17.2, Cr 2.1, CPK 1141, trop 0.07. Head CT showed moderate atrophy and chronic microvascular ischemic disease changes without gross evidence of acute intracranial pathology. Recent Travel: denies PAST MEDICAL HISTORY: as above, obtained from chart review PAST SURGICAL HISTORY: unknown Social History: Smoking: denies Alcohol: denies Drugs: denies Family History: Allergies lansoprazole [From Prevacid] Allergy (Verified 11/28/17 09:39) Penicillins Allergy (Verified 11/28/17 09:39) Hives prednisone Allergy (Verified 11/28/17 09:39) Hives HOME MEDICATIONS: Home Medications Medication Instructions Recorded Amlodipine Besylate [Norvasc -] 5 mg PO DAILY tablet 06/22/15 Albuterol 2.5/Ipratropium 0.5 1 amp NEB QIDR amp 07/17/15 [Duoneb -] Metoprolol Tartrate [Lopressor -] 25 mg PO BID tablet 07/17/15 Calcium Carbonate [Calcium] 500 mg PO DAILY 03/10/16 Cholecalciferol (Vitamin D3) 1,000 unit PO DAILY 03/10/16 [Vitamin D3] Levothyroxine [Synthroid -] 100 mcg PO DAILY 03/10/16 Pravastatin Sodium 20 mg PO HS #30 tablet 03/14/16 Apixaban [Eliquis] 5 mg PO BID 01/06/17 Docusate Sodium [Colace -] 100 mg PO BID #30 cap 03/02/17 Lisinopril [Prinivil] 20 mg PO DAILY tablet 03/02/17 Polyethylene Glycol 3350 [Miralax 17 gm PO BID bottle 03/02/17 119 gm Btl -] Ranitidine [Zantac -] 150 mg PO BID tablet 03/02/17 REVIEW OF SYSTEMS CONSTITUTIONAL: Generalized weakness after being found on the ground Absent: fever, chills, diaphoresis, generalized weakness, malaise, loss of appetite, weight change HEENT: Absent: rhinorrhea, nasal congestion, throat pain, throat swelling, difficulty swallowing, mouth swelling, ear pain, eye pain, visual changes CARDIOVASCULAR: Absent: chest pain, syncope, palpitations, irregular heart rate, lightheadedness , peripheral edema RESPIRATORY: Absent: cough, shortness of breath, dyspnea with exertion, orthopnea, wheezing, stridor, hemoptysis GASTROINTESTINAL: Absent: abdominal pain, abdominal distension, nausea, vomiting, diarrhea, constipation, melena, hematochezia GENITOURINARY: Absent: dysuria, frequency, urgency, hesitancy, hematuria, flank pain, genital pain MUSCULOSKELETAL: Absent: myalgia, arthralgia, joint swelling, back pain, neck pain SKIN: Absent: rash, itching, pallor HEMATOLOGIC/IMMUNOLOGIC: Absent: easy bleeding, easy bruising, lymphadenopathy, frequent infections ENDOCRINE: Absent: unexplained weight gain, unexplained weight loss, heat intolerance, cold intolerance NEUROLOGIC: Dizziness that lead to a fall. No LOC reported Absent: headache, focal weakness or paresthesias, unsteady gait, seizure, bladder or bowel incontinence PSYCHIATRIC: Absent: anxiety, depression, suicidal or homicidal ideation, hallucinations. PHYSICAL EXAMINATION CBCD WBC 12.4 K/mm3 (4.0-10.0) H 11/29/17 06:28 RBC 3.26 M/mm3 (3.60-5.2) L 11/29/17 06:28 Hgb 10.2 GM/dL (10.7-15.3) L D 11/29/17 06:28 Hct 29.4 % (32.4-45.2) L D 11/29/17 06:28 MCV 90.4 fl (80-96) 11/29/17 06:28 MCHC 34.7 g/dl (32.0-36.0) 11/29/17 06:28 RDW 14.0 % (11.6-15.6) 11/29/17 06:28 Plt Count 143 K/MM3 (134-434) D 11/29/17 06:28 MPV 10.1 fl (7.5-11.1) 11/29/17 06:28 Vital Signs Temperature 98.3 F 11/29/17 11:40 Pulse Rate 88 11/29/17 11:40 Respiratory Rate 20 11/29/17 11:40 Blood Pressure 144/91 11/29/17 11:40 O2 Sat by Pulse Oximetry (%) 96 11/29/17 09:00 GENERAL: Awake, A&Ox2 (person, place only), in no acute distress. HEAD: Normal with no signs of trauma. EYES: Pupils equal, round and reactive to light, extraocular movements intact, sclera anicteric, conjunctiva clear. No lid lag. EARS, NOSE, THROAT: Dry mucus membranes. Ears normal, nares patent, oropharynx clear without exudates NECK: Normal range of motion LUNGS: Breath sounds equal, clear to auscultation bilaterally. No wheezes, and no crackles. No accessory muscle use. HEART: Regular rate and rhythm ABDOMEN: Soft, nontender, not distended, normoactive bowel sounds, no guarding, no rebound, no masses MUSCULOSKELETAL: Normal range of motion at all joints. No CVA tenderness. UPPER EXTREMITIES: 2+ pulses, warm, well-perfused. No cyanosis. No clubbing. No peripheral edema. LOWER EXTREMITIES: 2+ pulses, warm, well-perfused. No calf tenderness. No peripheral edema. PSYCHIATRIC: Cooperative. Good eye contact. Appropriate mood and affect. SKIN: Warm, dry, no rashes or lesions noted, normal capillary refill. CBCD WBC 12.4 K/mm3 (4.0-10.0) H 11/29/17 06:28 RBC 3.26 M/mm3 (3.60-5.2) L 11/29/17 06:28 Hgb 10.2 GM/dL (10.7-15.3) L D 11/29/17 06:28 Hct 29.4 % (32.4-45.2) L D 11/29/17 06:28 MCV 90.4 fl (80-96) 11/29/17 06:28 MCHC 34.7 g/dl (32.0-36.0) 11/29/17 06:28 RDW 14.0 % (11.6-15.6) 11/29/17 06:28 Plt Count 143 K/MM3 (134-434) D 11/29/17 06:28 MPV 10.1 fl (7.5-11.1) 11/29/17 06:28 CMP Sodium 145 mmol/L (136-145) 11/29/17 06:28 Potassium 4.1 mmol/L (3.5-5.1) 11/29/17 06:28 Chloride 114 mmol/L (98-107) H 11/29/17 06:28 Carbon Dioxide 23 mmol/L (21-32) 11/29/17 06:28 Anion Gap 8 (8-16) 11/29/17 06:28 BUN 47 mg/dL (7-18) H 11/29/17 06:28 Creatinine 2.1 mg/dL (0.55-1.02) H 11/29/17 06:28 Creat Clearance w eGFR 22.60 (>60) 11/29/17 06:28 Calcium 7.9 mg/dL (8.5-10.1) L 11/29/17 06:28 Total Bilirubin 0.7 mg/dL (0.2-1.0) 11/29/17 06:28 AST 34 U/L (15-37) 11/29/17 06:28 ALT 16 U/L (12-78) 11/29/17 06:28 Alkaline Phosphatase 79 U/L (45-117) 11/29/17 06:28 Total Protein 6.4 g/dl (6.4-8.2) 11/29/17 06:28 Albumin 2.9 g/dl (3.4-5.0) L 11/29/17 06:28 CT head reviewed Carotid doppler reviewed Assessment: 82 year old female with PMHx of COPD, PAD, lower extremity DVTs (dx 07/2015, on Eliquis), hypothyroidism, HTN, DJD, CKD stage III who presented to the ED after being found on the ground in her own urine, confused for an unknown period of time. During my eval, not able to tell me date. Does know she's at [facility] but not able to state the name of president. Reportedly two days ago she got up off the couch, felt dizzy and fell to the ground. She does not recall if she hit any part of her body. She does not know if she lost consciousness. Was admitted with WBC 17.2, Cr 2.1, CPK 1141, trop 0.07. Head CT showed moderate atrophy and chronic microvascular ischemic disease changes without gross evidence of acute intracranial pathology. Unclear what her baseline mental status is and this maybe appropriate cognition for her Does not appear consistent with seizure possibly syncopal episode Continute mgmt of Rhabdomyolysis CT head, Carotids reviewed as above IVF, continue to trend CPK Increased PO intake Renal consulted Monitor blood pressure, Orthostatics Caution with AC (on Eliquis) if recurrent falls May benefit from short term rehab, PT lupe
--- NOTE | 2017-11-29 13:25 | CON.PULM ---
Consult Consult Specialty:: PULMONARY Referred by:: ISIDRO Gonzales Reason for Consultation:: COPD - History of Present Illness History of Present Illness: 82yo female with h/o HTN, COPD, PAD, CKD, h/o DVTs, hypothyroidism who was found on the ground confused. Found to have rhabdomyolysis with acute renal failure. Initial CXR showing interstitial changes, CT chest done showing severe COPD/emphysematous changes. She reports some mild shortness of breath, no cough or wheezing. No fevers or sweats. Does not use inhalers or oxygen at home. She was a long time smoker, started in her teens, smoked about 1 PPD and quit in 1994. 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) Cardio/Vascular: Yes: Deep Vein Thrombosis, HTN Renal/: Yes: Renal Inusuff (suspect underlying CKD stage III w/Scr of 1.2mg/dL ) Musculoskeletal: Yes: Other (compression fracture) Endocrine: Yes: Hypothyroidism - Past Surgical History Past Surgical History: Yes: Cholecystectomy (Lap), (x2) - Alcohol/Substance Use Hx Alcohol Use: No History of Substance Use: reports: None - Smoking History Smoking history: Former smoker Have you smoked in the past 12 months: No Aproximately how many cigarettes per day: 0 If you are a former smoker, when did you quit?: 2 years ago - Social History Usual Living Arrangement: Alone ADL: Independent 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 History of Recent Travel: No Home Medications - Allergies Allergies/Adverse Reactions: Allergies Allergy/AdvReac Type Severity Reaction Status Date / Time lansoprazole [From Prevacid] Allergy Verified 11/28/17 09:39 Penicillins Allergy Hives Verified 11/28/17 09:39 prednisone Allergy Hives Verified 11/28/17 09:39 - Home Medications Home Medications: Ambulatory Orders Amlodipine Besylate [Norvasc -] 5 mg PO DAILY tablet 06/22/15 Albuterol 2.5/Ipratropium 0.5 [Duoneb -] 1 amp NEB QIDR amp 07/17/15 Metoprolol Tartrate [Lopressor -] 25 mg PO BID tablet 07/17/15 Calcium Carbonate [Calcium] 500 mg PO DAILY 03/10/16 Cholecalciferol (Vitamin D3) [Vitamin D3] 1,000 unit PO DAILY 03/10/16 Levothyroxine [Synthroid -] 100 mcg PO DAILY 03/10/16 Pravastatin Sodium 20 mg PO HS #30 tablet 03/14/16 Apixaban [Eliquis] 5 mg PO BID 08/08/16 Docusate Sodium [Colace -] 100 mg PO BID #30 cap 03/02/17 Lisinopril [Prinivil] 20 mg PO DAILY tablet 03/02/17 Polyethylene Glycol 3350 [Miralax 119 gm Btl -] 17 gm PO BID bottle 03/02/17 Ranitidine [Zantac -] 150 mg PO BID tablet 03/02/17 Family Disease History - Family Disease History Family Disease History: Other: Father ( 52: sudden), Mother (: 76: unclear causes), Brother (5, unclear causes), Sister (2, unclear causes), Son (1, healthy), Daughter (1, healthy) Review of Systems - Review of Systems Constitutional: denies: Chills, Fever Eyes: denies: Recent Change in Vision HENT: denies: Nasal Congestion, Throat Pain Neck: denies: Stiffness, Tenderness Cardiovascular: reports: Shortness of Breath. denies: Chest Pain, Palpitations Respiratory: reports: Cough. denies: Hemoptysis, Wheezing Gastrointestinal: denies: Abdominal Pain, Nausea, Vomiting Genitourinary: denies: Dysuria, Hematuria Neurological: denies: Dizziness, Headache Physical Exam Vital Sings: Vital Signs Temperature 98.3 F 11/29/17 11:40 Pulse Rate 88 11/29/17 11:40 Respiratory Rate 20 11/29/17 11:40 Blood Pressure 144/91 11/29/17 11:40 O2 Sat by Pulse Oximetry (%) 96 11/29/17 09:00 Constitutional: Yes: Calm Eyes: Yes: Conjunctiva Clear, EOM Intact HENT: Yes: Atraumatic, Normocephalic Neck: Yes: Supple, Trachea Midline Cardiovascular: Yes: Regular Rate and Rhythm Respiratory: Yes: Diminished. No: Wheezes ...Clubbing: No Gastrointestinal: Yes: Normal Bowel Sounds, Soft. No: Tenderness Edema: No Neurological: Yes: Alert, Oriented Labs: CBC, BMP 11/29/17 06:28 11/29/17 06:28 Imaging - Results Chest X-ray: Report Reviewed, Image Reviewed Cat Scan: Report Reviewed, Image Reviewed (severe emphysemtaous changes) Problem List - Problems (1) Rhabdomyolysis Code(s): M62.82 - RHABDOMYOLYSIS (2) Acute kidney injury Code(s): N17.9 - ACUTE KIDNEY FAILURE, UNSPECIFIED (3) COPD (chronic obstructive pulmonary disease) Code(s): J44.9 - CHRONIC OBSTRUCTIVE PULMONARY DISEASE, UNSPECIFIED Qualifiers: COPD type: unspecified COPD Qualified Code(s): J44.9 - Chronic obstructive pulmonary disease, unspecified (4) Emphysema of lung Code(s): J43.9 - EMPHYSEMA, UNSPECIFIED (5) HTN (hypertension) Code(s): I10 - ESSENTIAL (PRIMARY) HYPERTENSION (6) Hypothyroidism Code(s): E03.9 - HYPOTHYROIDISM, UNSPECIFIED Assessment/Plan Rhabdomyolysis Acute on Chronic Renal Failure COPD/Emphysema Likely Chronic Hypoxic Respiratory Failure HTN Hypothyroidism - O2 to keep SpO2 >90% - inhaled bronchodilators standing and PRN - can defer systemic steroids at this time - IVF - monitor urine output, creatinine - trend CPK - will need to check ambulatory SpO2 on room air to assess for home O2 when ready for discharge - outpt PFTs and f/u Thank you for this consult Ajith Landis MD
[2017-11-29] MEDS ORDERED: ALBUTEROL SO4 0.083% IH SOL 2.5 MG/3 ML VIAL.NEB. NEB PRN (14:53)
--- NOTE | 2017-11-29 14:54 | PN ---
Progress Note (short form) - Note Progress Note: Subjective: The patient was seen and examined at the bedside, she has no complaints at this time CPK trending down Cr stable Current Medications Generic Name Dose Route Start Last Admin Trade Name Teri PRN Reason Stop Dose Admin Albuterol/Ipratropium 1 amp 11/28/17 18:00 11/29/17 11:57 Duoneb - NEB 1 amp QIDR [facility] Administration Amlodipine Besylate 5 mg 11/29/17 10:00 11/29/17 10:38 Norvasc - PO 5 mg DAILY [facility] Administration Apixaban 5 mg 11/28/17 22:00 11/29/17 10:38 Eliquis - PO 5 mg BID [facility] Administration Atorvastatin Calcium 10 mg 11/28/17 22:00 11/28/17 22:00 Lipitor - PO 10 mg HS [facility] Administration Calcium Carbonate 500 mg 11/29/17 10:00 11/29/17 10:38 Os-Boris 500mg - PO 500 mg DAILY [facility] Administration Cholecalciferol 1,000 unit 11/28/17 15:00 11/29/17 10:37 Vitamin D3 - PO 1,000 unit DAILY [facility] Administration Docusate Sodium 100 mg 11/28/17 22:00 11/29/17 10:38 Colace - PO 100 mg BID [facility] Administration Potassium Chloride/Sodium Chloride 20 meq in 1,000 mls @ 75 mls/hr 11/28/17 22 :30 11/28/17 23:09 1/2ns+20meq Kcl IV 75 mls/hr ASDIR [facility] Administration Levothyroxine Sodium 100 mcg 11/29/17 10:00 11/29/17 10:38 Synthroid - PO 100 mcg ACBK [facility] Administration Metoprolol Tartrate 25 mg 11/28/17 22:00 11/29/17 10:38 Lopressor - PO 25 mg BID [facility] Administration Ranitidine HCl 150 mg 11/29/17 10:00 11/29/17 10:38 Zantac - PO 150 mg DAILY [facility] Administration Objective: Vital Signs Period Temp Pulse Resp BP Sys/Pascual Pulse Ox Last 24 Hr 98.0 F-98.4 F 68-88 18-20 144-179/62-91 96-98 Physical Exam: GENERAL: Awake, A&Ox2 (person, place only), in no acute distress. HEAD: Normal with no signs of trauma. EYES: Pupils equal, round and reactive to light, extraocular movements intact, sclera anicteric, conjunctiva clear. No lid lag. EARS, NOSE, THROAT: Dry mucus membranes. Ears normal, nares patent, oropharynx clear without exudates NECK: Normal range of motion LUNGS: Breath sounds equal, clear to auscultation bilaterally. No wheezes, and no crackles. No accessory muscle use. HEART: Regular rate and rhythm ABDOMEN: Soft, nontender, not distended, normoactive bowel sounds PSYCHIATRIC: Cooperative. Good eye contact. Appropriate mood and affect. SKIN: Warm, dry, no rashes or lesions noted, normal capillary refill. CBCD WBC 12.4 K/mm3 (4.0-10.0) H 11/29/17 06:28 RBC 3.26 M/mm3 (3.60-5.2) L 11/29/17 06:28 Hgb 10.2 GM/dL (10.7-15.3) L D 11/29/17 06:28 Hct 29.4 % (32.4-45.2) L D 11/29/17 06:28 MCV 90.4 fl (80-96) 11/29/17 06:28 MCHC 34.7 g/dl (32.0-36.0) 11/29/17 06:28 RDW 14.0 % (11.6-15.6) 11/29/17 06:28 Plt Count 143 K/MM3 (134-434) D 11/29/17 06:28 MPV 10.1 fl (7.5-11.1) 11/29/17 06:28 CMP Sodium 145 mmol/L (136-145) 11/29/17 06:28 Potassium 4.1 mmol/L (3.5-5.1) 11/29/17 06:28 Chloride 114 mmol/L (98-107) H 11/29/17 06:28 Carbon Dioxide 23 mmol/L (21-32) 11/29/17 06:28 Anion Gap 8 (8-16) 11/29/17 06:28 BUN 47 mg/dL (7-18) H 11/29/17 06:28 Creatinine 2.1 mg/dL (0.55-1.02) H 11/29/17 06:28 Creat Clearance w eGFR 22.60 (>60) 11/29/17 06:28 Random Glucose 112 mg/dL (74-106) H 11/29/17 06:28 Calcium 7.9 mg/dL (8.5-10.1) L 11/29/17 06:28 Total Bilirubin 0.7 mg/dL (0.2-1.0) 11/29/17 06:28 AST 34 U/L (15-37) 11/29/17 06:28 ALT 16 U/L (12-78) 11/29/17 06:28 Alkaline Phosphatase 79 U/L (45-117) 11/29/17 06:28 Total Protein 6.4 g/dl (6.4-8.2) 11/29/17 06:28 Albumin 2.9 g/dl (3.4-5.0) L 11/29/17 06:28 CARDIAC ENZYMES Creatine Kinase 690 IU/L (26-192) H 11/29/17 06:28 Troponin I 0.06 ng/ml (0.00-0.05) H 11/29/17 01:10 Assessment: This is an 82 year old female with PMHx of COPD, PAD, lower extremity DVTs (dx 07/2015, on Eliquis), hypothyroidism, HTN, DJD, CKD stage III who presented to the ED after being found on the ground in her own urine, confused for an unknown period of time. Plan: 1) Rhabdomyolysis - Likely 2/2 laying on the ground x2 days - Improving - IV hydration - Encourage po intake 2) MARCIAL on CKD stage III - Likely pre-renal 2/2 dehydration - Continue IV fluids - Kidney ultrasound: both kidneys are small and echogenic compatible with chronic medical renal disease. Mild right renal hydronephrosis and a small left renal simple cyst measuring 1.6cm without gross evidence of renal stones - IV fluids: 1/2 NS with 20meq K - Appreciate nephrology consult 3) Elevated troponin - Patient denies any chest pain - Cardiac monitoring - Elevation likely demand ischemia in the setting of above - Trended down 4) Fall - Patient reports dizziness prior to falling, however denies loss of consciousness - F/u ECHO - Continue cardiac monitoring - Carotid dopplers: intimal thickening and small plaques at the common carotid bifurcation and bulb without evidence of hemodynamically significant stenosis bilatearlly - Imaging reviewed 5) COPD/emphysema - Evidence on chest CT - Duonebs prn - Defer starting systemic steroids at this time as the patient does not appear to be in exacerbation - Outpatient PFTs - Appreciate pulmonary consult 6) HTN - Norvasc 5mg - Lopressor - Hold Lisinopril / MARCIAL 7) Hypothyroidism - Continue Synthroid - TSH 12.8, F/u free T4. Will need to follow-up with pcp tomorrow regarding any recent dose change (patient was on synthroid 100mcg 02/27/18). Was unable to verify medications with patient as she is unaware what dose she takes and the family is not aware either 8) Hx of lower extremity DVTs - Continue Eliquis 9) F/E/N: - Pureed diet, will ask daughter to bring in dentures - Monitor electrolytes 10) Prophylaxis: - On Eliquis - PT evaluation 11) Dispo: - Requires continued inpatient care CODE STATUS: FULL CODE Visit type - Emergency Visit Emergency Visit: Yes ED Registration Date: 11/28/17 Care time: The patient presented to the Emergency Department on the above date and was hospitalized for further evaluation of their emergent condition. - New Patient This patient is new to me today: No - Critical Care Critical Care patient: No
--- NOTE | 2017-11-29 19:00 | PN ---
Progress Note (short form) - Note Progress Note: s/p fall at home debbie debilitated Current Medications Albuterol Sulfate (Ventolin 0.083% Nebulizer Soln -) 1 amp NEB Q4H PRN PRN Reason: SHORT OF BREATH/WHEEZING Albuterol/Ipratropium (Duoneb -) 1 amp NEB QIDR [facility] Last Admin: 11/29/17 17:10 Dose: 1 amp Amlodipine Besylate (Norvasc -) 5 mg PO DAILY [facility] Last Admin: 11/29/17 10:38 Dose: 5 mg Apixaban (Eliquis -) 5 mg PO BID [facility] Last Admin: 11/29/17 10:38 Dose: 5 mg Atorvastatin Calcium (Lipitor -) 10 mg PO HS [facility] Last Admin: 11/28/17 22:00 Dose: 10 mg Calcium Carbonate (Os-Boris 500mg -) 500 mg PO DAILY [facility] Last Admin: 11/29/17 10:38 Dose: 500 mg Cholecalciferol (Vitamin D3 -) 1,000 unit PO DAILY [facility] Last Admin: 11/29/17 10:37 Dose: 1,000 unit Docusate Sodium (Colace -) 100 mg PO BID [facility] Last Admin: 11/29/17 10:38 Dose: 100 mg Potassium Chloride/Sodium Chloride (1/2ns+20meq Kcl) 20 meq in 1,000 mls @ 75 mls/hr IV ASDIR [facility] Last Admin: 11/28/17 23:09 Dose: 75 mls/hr Levothyroxine Sodium (Synthroid -) 100 mcg PO ACBK [facility] Last Admin: 11/29/17 10:38 Dose: 100 mcg Metoprolol Tartrate (Lopressor -) 25 mg PO BID [facility] Last Admin: 11/29/17 10:38 Dose: 25 mg Ranitidine HCl (Zantac -) 150 mg PO DAILY [facility] Last Admin: 11/29/17 10:38 Dose: 150 mg Last Vital Signs Temp Pulse Resp BP Pulse Ox 98.6 F 73 20 173/70 96 11/29/17 14:00 11/29/17 14:00 11/29/17 11:40 11/29/17 14:00 11/29/17 09:00 lungs clear heart reg abd soft ext no edema CBC, BMP 11/29/17 06:28 11/29/17 06:28 IMP- debbie renal function stabilized and not getting worse Underlying CKD baseline s creat 1.6 back in 2016 debility Plan- continue ivf for now until she has definite adequate intake
[2017-11-29] MEDS: ATORVASTATIN CA 10 MG TABLET (FP) PO SCH (21:31)
[2017-11-29] MEDS: SODIUM CHLORIDE 0.45%/POT 20 MEQ/1,000 ML INFUS.BAG IV SCH (23:00)
[2017-11-30] MEDS: ALBUTEROL SO4 2.5/IPRATROPIUM 0.5 INH SOL 3 ML VIAL.NEB. NEB SCH ×3 (00:08→17:37)
[2017-11-30 06:31] LABS: BASO % 0.2 % (0-2.0); EOS % 0.1 % (0-4.5); HEMATOCRIT 28.5 % (32.4-45.2); HEMOGLOBIN 10.1 GM/dL (10.7-15.3); LYMPH % 5.7 % (8-40); MCH 31.9 pg (25.7-33.7); MCHC 35.3 g/dl (32.0-36.0); MEAN CELL VOLUME 90.3 fl (80-96); MEAN PLT VOLUME 10.2 fl (7.5-11.1); PLATELET COUNT 151 K/MM3 (134-434); RBC 3.16 M/mm3 (3.60-5.2); RDW 14.3 % (11.6-15.6); WHITE BLOOD COUNT 12.3 K/mm3 (4.0-10.0)
[2017-11-30] MEDS: LEVOTHYROXINE NA 100 MCG TABLET (FP) PO SCH (06:41)
[2017-11-30 07:12] LABS: ANION GAP 11 (8-16); BLOOD UREA NITROGEN 44 mg/dL (7-18); CALCIUM 8.2 mg/dL (8.5-10.1); CHLORIDE 113 mmol/L (98-107); CO2 22 mmol/L (21-32); GLUCOSE,RANDOM 131 mg/dL (74-106); SODIUM 146 mmol/L (136-145)
[2017-11-30 07:15] LABS: ALK PHOS 74 U/L (45-117); BILIRUBIN,TOTAL 0.7 mg/dL (0.2-1.0); CREATININE 2.1 mg/dL (0.55-1.02); SGOT/AST 30 U/L (15-37); SGPT/ALT 17 U/L (12-78); TOT PROT 6.4 g/dl (6.4-8.2)
--- NOTE | 2017-11-30 09:47 | PN ---
Progress Note (short form) - Note Progress Note: Neurology HISTORY OF PRESENT ILLNESS: This is an 82 year old female with PMHx of COPD, PAD, lower extremity DVTs (dx 07/2015, on Eliquis), hypothyroidism, HTN, DJD, CKD stage III who presented to the ED after being found on the ground in her own urine, confused for an unknown period of time. During my eval, not able to tell me date. Does know she' s at [facility] but not able to state the name of president. Reportedly two days ago she got up off the couch, felt dizzy and fell to the ground. She does not recall if she hit any part of her body. She does not know if she lost consciousness. She states she was unable to get up and was on the ground for 2 days. She states she feels weak but denies any chest pain, nausea, vomiting, diarrhea, palpitations, headache, urinary symptoms. Was admitted with WBC 17.2, Cr 2.1, CPK 1141, trop 0.07. Head CT showed moderate atrophy and chronic microvascular ischemic disease changes without gross evidence of acute intracranial pathology. Today, more alert and able to tell me that it's November but said 1980 for the year. She also still wasn't able to tell me name of President and informed her Trump. Appears improved and maybe more toward baseline. Active Medications Albuterol Sulfate (Ventolin 0.083% Nebulizer Soln -) 1 amp NEB Q4H PRN PRN Reason: SHORT OF BREATH/WHEEZING Albuterol/Ipratropium (Duoneb -) 1 amp NEB QIDR [facility] Last Admin: 11/30/17 00:08 Dose: 1 amp Amlodipine Besylate (Norvasc -) 5 mg PO DAILY [facility] Last Admin: 11/29/17 10:38 Dose: 5 mg Apixaban (Eliquis -) 5 mg PO BID [facility] Last Admin: 11/29/17 21:31 Dose: 5 mg Atorvastatin Calcium (Lipitor -) 10 mg PO HS [facility] Last Admin: 11/29/17 21:31 Dose: 10 mg Calcium Carbonate (Os-Boris 500mg -) 500 mg PO DAILY [facility] Last Admin: 11/29/17 10:38 Dose: 500 mg Cholecalciferol (Vitamin D3 -) 1,000 unit PO DAILY [facility] Last Admin: 11/29/17 10:37 Dose: 1,000 unit Docusate Sodium (Colace -) 100 mg PO BID [facility] Last Admin: 11/29/17 21:31 Dose: 100 mg Potassium Chloride/Sodium Chloride (1/2ns+20meq Kcl) 20 meq in 1,000 mls @ 75 mls/hr IV ASDIR [facility] Last Admin: 11/29/17 23:00 Dose: Not Given Levothyroxine Sodium (Synthroid -) 100 mcg PO ACBK [facility] Last Admin: 11/30/17 06:41 Dose: 100 mcg Metoprolol Tartrate (Lopressor -) 25 mg PO BID [facility] Last Admin: 11/29/17 21:31 Dose: 25 mg Ranitidine HCl (Zantac -) 150 mg PO DAILY [facility] Last Admin: 11/29/17 10:38 Dose: 150 mg PHYSICAL EXAMINATION CBCD WBC 12.3 K/mm3 (4.0-10.0) H 11/30/17 06:10 RBC 3.16 M/mm3 (3.60-5.2) L 11/30/17 06:10 Hgb 10.1 GM/dL (10.7-15.3) L 11/30/17 06:10 Hct 28.5 % (32.4-45.2) L 11/30/17 06:10 MCV 90.3 fl (80-96) 11/30/17 06:10 MCHC 35.3 g/dl (32.0-36.0) 11/30/17 06:10 RDW 14.3 % (11.6-15.6) 11/30/17 06:10 Plt Count 151 K/MM3 (134-434) 11/30/17 06:10 MPV 10.2 fl (7.5-11.1) 11/30/17 06:10 Vital Signs Temperature 98.4 F 11/30/17 06:00 Pulse Rate 80 11/30/17 06:00 Respiratory Rate 18 11/30/17 06:00 Blood Pressure 158/76 11/30/17 06:00 O2 Sat by Pulse Oximetry (%) 95 11/29/17 21:00 GENERAL: Awake, A&Ox2 (person, place only), in no acute distress. HEAD: Normal with no signs of trauma. EYES: Pupils equal, round and reactive to light, extraocular movements intact, sclera anicteric, conjunctiva clear. No lid lag. EARS, NOSE, THROAT: Dry mucus membranes. Ears normal, nares patent, oropharynx clear without exudates NECK: Normal range of motion LUNGS: Breath sounds equal, clear to auscultation bilaterally. No wheezes, and no crackles. No accessory muscle use. HEART: Regular rate and rhythm ABDOMEN: Soft, nontender, not distended, normoactive bowel sounds, no guarding, no rebound, no masses MUSCULOSKELETAL: Normal range of motion at all joints. No CVA tenderness. UPPER EXTREMITIES: 2+ pulses, warm, well-perfused. No cyanosis. No clubbing. No peripheral edema. LOWER EXTREMITIES: 2+ pulses, warm, well-perfused. No calf tenderness. No peripheral edema. PSYCHIATRIC: Cooperative. Good eye contact. Appropriate mood and affect. SKIN: Warm, dry, no rashes or lesions noted, normal capillary refill. CBCD WBC 12.3 K/mm3 (4.0-10.0) H 11/30/17 06:10 RBC 3.16 M/mm3 (3.60-5.2) L 11/30/17 06:10 Hgb 10.1 GM/dL (10.7-15.3) L 11/30/17 06:10 Hct 28.5 % (32.4-45.2) L 11/30/17 06:10 MCV 90.3 fl (80-96) 11/30/17 06:10 MCHC 35.3 g/dl (32.0-36.0) 11/30/17 06:10 RDW 14.3 % (11.6-15.6) 11/30/17 06:10 Plt Count 151 K/MM3 (134-434) 11/30/17 06:10 MPV 10.2 fl (7.5-11.1) 11/30/17 06:10 CMP Sodium 146 mmol/L (136-145) H 11/30/17 06:10 Potassium 4.0 mmol/L (3.5-5.1) 11/30/17 06:10 Chloride 113 mmol/L (98-107) H 11/30/17 06:10 Carbon Dioxide 22 mmol/L (21-32) 11/30/17 06:10 Anion Gap 11 (8-16) 11/30/17 06:10 BUN 44 mg/dL (7-18) H 11/30/17 06:10 Creatinine 2.1 mg/dL (0.55-1.02) H 11/30/17 06:10 Creat Clearance w eGFR 22.60 (>60) 11/30/17 06:10 Calcium 8.2 mg/dL (8.5-10.1) L 11/30/17 06:10 Total Bilirubin 0.7 mg/dL (0.2-1.0) 11/30/17 06:10 AST 30 U/L (15-37) 11/30/17 06:10 ALT 17 U/L (12-78) 11/30/17 06:10 Alkaline Phosphatase 74 U/L (45-117) 11/30/17 06:10 Total Protein 6.4 g/dl (6.4-8.2) 11/30/17 06:10 Albumin 3.0 g/dl (3.4-5.0) L 11/30/17 06:10 CT head reviewed Carotid doppler reviewed Assessment: 82 year old female with PMHx of COPD, PAD, lower extremity DVTs (dx 07/2015, on Eliquis), hypothyroidism, HTN, DJD, CKD stage III who presented to the ED after being found on the ground in her own urine, confused for an unknown period of time. During my eval, not able to tell me date. Does know she's at [facility] but not able to state the name of president. Reportedly two days ago she got up off the couch, felt dizzy and fell to the ground. She does not recall if she hit any part of her body. She does not know if she lost consciousness. Was admitted with WBC 17.2, Cr 2.1, CPK 1141, trop 0.07. Head CT showed moderate atrophy and chronic microvascular ischemic disease changes without gross evidence of acute intracranial pathology. More alert today and can tell me it's November and she's at [facility], has difficulty with name of President Unclear what her baseline mental status is and this maybe appropriate cognition for her Does not appear consistent with seizure possibly syncopal episode Continute mgmt of Rhabdomyolysis CT head, Carotids reviewed as above IVF, continue to trend CPK Increased PO intake Renal consulted Monitor blood pressure, Orthostatics Caution with AC (on Eliquis) if recurrent falls May benefit from short term rehab, PT lupe
[2017-11-30] MEDS: DOCUSATE SODIUM 100 MG CAPSULE (FP) PO SCH ×2 (09:56→21:38)
[2017-11-30] MEDS: APIXABAN 5 MG TABLET PO SCH ×2 (09:56→21:36)
[2017-11-30] MEDS: CHOLECALCIFEROL (VITAMIN D3) 1,000 UNIT TABLET (FP) PO SCH (09:56)
[2017-11-30] MEDS: amLODIPine BESYLATE 5 MG TABLET (FP) PO SCH (09:56)
[2017-11-30] MEDS: CALCIUM (OYSTER SHELL) 500 MG TABLET (FP) PO SCH (09:56)
[2017-11-30] MEDS: METOPROLOL TARTRATE 25 MG TABLET (FP) PO SCH ×2 (09:58→21:37)
[2017-11-30] MEDS: RANITIDINE HCL 150 MG TABLET (FP) PO SCH (09:58)
--- NOTE | 2017-11-30 10:50 | PN ---
Progress Note, Physician History of Present Illness: pulmonary alert,comfortable,-resp distress - Current Medication List Current Medications: Active Medications Albuterol Sulfate (Ventolin 0.083% Nebulizer Soln -) 1 amp NEB Q4H PRN PRN Reason: SHORT OF BREATH/WHEEZING Albuterol/Ipratropium (Duoneb -) 1 amp NEB QIDR [facility] Last Admin: 11/30/17 00:08 Dose: 1 amp Amlodipine Besylate (Norvasc -) 5 mg PO DAILY [facility] Last Admin: 11/30/17 09:56 Dose: 5 mg Apixaban (Eliquis -) 5 mg PO BID [facility] Last Admin: 11/30/17 09:56 Dose: 5 mg Atorvastatin Calcium (Lipitor -) 10 mg PO HS [facility] Last Admin: 11/29/17 21:31 Dose: 10 mg Calcium Carbonate (Os-Boris 500mg -) 500 mg PO DAILY [facility] Last Admin: 11/30/17 09:56 Dose: 500 mg Cholecalciferol (Vitamin D3 -) 1,000 unit PO DAILY [facility] Last Admin: 11/30/17 09:56 Dose: 1,000 unit Docusate Sodium (Colace -) 100 mg PO BID [facility] Last Admin: 11/30/17 09:56 Dose: 100 mg Potassium Chloride/Sodium Chloride (1/2ns+20meq Kcl) 20 meq in 1,000 mls @ 75 mls/hr IV ASDIR [facility] Last Admin: 11/29/17 23:00 Dose: Not Given Levothyroxine Sodium (Synthroid -) 100 mcg PO ACBK [facility] Last Admin: 11/30/17 06:41 Dose: 100 mcg Metoprolol Tartrate (Lopressor -) 25 mg PO BID [facility] Last Admin: 11/30/17 09:58 Dose: 25 mg Ranitidine HCl (Zantac -) 150 mg PO DAILY [facility] Last Admin: 11/30/17 09:58 Dose: - Objective Vital Signs: Vital Signs Temperature 98.4 F 11/30/17 06:00 Pulse Rate 80 11/30/17 06:00 Respiratory Rate 18 11/30/17 06:00 Blood Pressure 158/76 11/30/17 06:00 O2 Sat by Pulse Oximetry (%) 95 11/29/17 21:00 Constitutional: Yes: Calm, Thin Eyes: Yes: WNL HENT: Yes: WNL Neck: Yes: WNL Cardiovascular: Yes: Regular Rate and Rhythm, S1, S2 Respiratory: Yes: Wheezes (few scattered jaquelin wheezes) Gastrointestinal: Yes: Normal Bowel Sounds, Soft Extremities: Yes: WNL Edema: No Integumentary: Yes: WNL Labs: CBC, BMP 11/30/17 06:10 11/30/17 06:10 INR, PTT INR 1.26 (0.82-1.09) H 11/28/17 10:38 Assessment/Plan Problem List - Problems (1) Rhabdomyolysis Code(s): M62.82 - RHABDOMYOLYSIS (2) Acute kidney injury Code(s): N17.9 - ACUTE KIDNEY FAILURE, UNSPECIFIED (3) COPD (chronic obstructive pulmonary disease) Code(s): J44.9 - CHRONIC OBSTRUCTIVE PULMONARY DISEASE, UNSPECIFIED Qualifiers: COPD type: unspecified COPD Qualified Code(s): J44.9 - Chronic obstructive pulmonary disease, unspecified (4) Emphysema of lung Code(s): J43.9 - EMPHYSEMA, UNSPECIFIED (5) HTN (hypertension) Code(s): I10 - ESSENTIAL (PRIMARY) HYPERTENSION (6) Hypothyroidism Code(s): E03.9 - HYPOTHYROIDISM, UNSPECIFIED Assessment/Plan Rhabdomyolysis Acute on Chronic Renal Failure COPD/Emphysema Likely Chronic Hypoxic Respiratory Failure HTN Hypothyroidism - O2 to keep SpO2 >90% - inhaled bronchodilators standing and PRN - IVF - monitor urine output, creatinine - trend CPK - will need to check ambulatory SpO2 on room air to assess for home O2 when ready for discharge - pfts outpatient DR KIRK
--- NOTE | 2017-11-30 12:17 | PN ---
Progress Note, Physician Chief Complaint: Ms Dale is without complaint. No cp, sob, n/v. - Current Medication List Current Medications: Active Medications Albuterol Sulfate (Ventolin 0.083% Nebulizer Soln -) 1 amp NEB Q4H PRN PRN Reason: SHORT OF BREATH/WHEEZING Albuterol/Ipratropium (Duoneb -) 1 amp NEB QIDR [facility] Last Admin: 11/30/17 00:08 Dose: 1 amp Amlodipine Besylate (Norvasc -) 5 mg PO DAILY [facility] Last Admin: 11/30/17 09:56 Dose: 5 mg Apixaban (Eliquis -) 5 mg PO BID [facility] Last Admin: 11/30/17 09:56 Dose: 5 mg Atorvastatin Calcium (Lipitor -) 10 mg PO HS [facility] Last Admin: 11/29/17 21:31 Dose: 10 mg Calcium Carbonate (Os-Boris 500mg -) 500 mg PO DAILY [facility] Last Admin: 11/30/17 09:56 Dose: 500 mg Cholecalciferol (Vitamin D3 -) 1,000 unit PO DAILY [facility] Last Admin: 11/30/17 09:56 Dose: 1,000 unit Docusate Sodium (Colace -) 100 mg PO BID [facility] Last Admin: 11/30/17 09:56 Dose: 100 mg Potassium Chloride/Sodium Chloride (1/2ns+20meq Kcl) 20 meq in 1,000 mls @ 75 mls/hr IV ASDIR [facility] Last Admin: 11/29/17 23:00 Dose: Not Given Levothyroxine Sodium (Synthroid -) 100 mcg PO ACBK [facility] Last Admin: 11/30/17 06:41 Dose: 100 mcg Metoprolol Tartrate (Lopressor -) 25 mg PO BID [facility] Last Admin: 11/30/17 09:58 Dose: 25 mg Ranitidine HCl (Zantac -) 150 mg PO DAILY [facility] Last Admin: 11/30/17 09:58 Dose: 150 mg - Objective Vital Signs: Vital Signs Temperature 36.9 C 11/30/17 06:00 Pulse Rate 80 11/30/17 06:00 Respiratory Rate 18 11/30/17 09:00 Blood Pressure 158/76 11/30/17 06:00 O2 Sat by Pulse Oximetry (%) 96 11/30/17 09:00 Constitutional: Yes: Well Nourished, No Distress, Calm Cardiovascular: Yes: Regular Rate and Rhythm. No: Gallop, Murmur, Rub Respiratory: Yes: Regular, CTA Bilaterally. No: Rales, Rhonchi, Wheezes Extremities: Yes: WNL Edema: No Labs: CBC, BMP 11/30/17 06:10 11/30/17 06:10 INR, PTT INR 1.26 (0.82-1.09) H 11/28/17 10:38 Problem List - Problems (1) Rhabdomyolysis Assessment/Plan: -secondary to fall and prolonged time on the ground -continue IVF -improved from admission -continue to monitor cpk Code(s): M62.82 - RHABDOMYOLYSIS Qualifiers: Rhabdomyolysis type: traumatic Encounter type: initial encounter Qualified Code(s): T79.6XXA - Traumatic ischemia of muscle, initial encounter (2) Acute kidney injury Assessment/Plan: -on stage 3 CKD -appreciate nephrology assistance -continue IVF currently -creatinine stabilized -will d/w nephrology when to transition to only oral fluids Code(s): N17.9 - ACUTE KIDNEY FAILURE, UNSPECIFIED (3) COPD (chronic obstructive pulmonary disease) Assessment/Plan: -continue duonebs -appreciate pulmonary assistance Code(s): J44.9 - CHRONIC OBSTRUCTIVE PULMONARY DISEASE, UNSPECIFIED Qualifiers: COPD type: unspecified COPD Qualified Code(s): J44.9 - Chronic obstructive pulmonary disease, unspecified (4) HTN (hypertension) Assessment/Plan: -SBP high normal -however considering age and concern for falls, does not need tight blood pressure control -continue current management Code(s): I10 - ESSENTIAL (PRIMARY) HYPERTENSION (5) Hypothyroidism Assessment/Plan: -continue synthroid Code(s): E03.9 - HYPOTHYROIDISM, UNSPECIFIED (6) Fall Assessment/Plan: -PT consult -may benefit from SNF placement Code(s): W19.XXXA - UNSPECIFIED FALL, INITIAL ENCOUNTER Qualifiers: Encounter type: initial encounter Qualified Code(s): W19.XXXA - Unspecified fall, initial encounter (7) History of DVT (deep vein thrombosis) Assessment/Plan: -continue eliquis Code(s): Z86.718 - PERSONAL HISTORY OF OTHER VENOUS THROMBOSIS AND EMBOLISM
[2017-11-30] MEDS: ATORVASTATIN CA 10 MG TABLET (FP) PO SCH (21:36)
[2017-11-30] MEDS: SODIUM CHLORIDE 0.45%/POT 20 MEQ/1,000 ML INFUS.BAG IV SCH (22:17)
[2017-12-01] MEDS: ALBUTEROL SO4 2.5/IPRATROPIUM 0.5 INH SOL 3 ML VIAL.NEB. NEB SCH ×2 (05:30)
[2017-12-01] MEDS: LEVOTHYROXINE NA 100 MCG TABLET (FP) PO SCH (06:09)
[2017-12-01 07:24] LABS: BASO % 0.5 % (0-2.0); EOS % 1.2 % (0-4.5); HEMATOCRIT 29.1 % (32.4-45.2); LYMPH % 9.7 % (8-40); MCH 31.4 pg (25.7-33.7); MCHC 34.2 g/dl (32.0-36.0); MEAN CELL VOLUME 91.6 fl (80-96); MEAN PLT VOLUME 10.5 fl (7.5-11.1); MONO % 8.3 % (3.8-10.2); NEUT % 80.3 % (42.8-82.8); PLATELET COUNT 153 K/MM3 (134-434); RBC 3.18 M/mm3 (3.60-5.2); RDW 14.1 % (11.6-15.6); WHITE BLOOD COUNT 11.7 K/mm3 (4.0-10.0)
[2017-12-01 07:34] LABS: ANION GAP 9 (8-16); BLOOD UREA NITROGEN 41 mg/dL (7-18); CALCIUM 8.1 mg/dL (8.5-10.1); CHLORIDE 111 mmol/L (98-107); CO2 23 mmol/L (21-32); GLUCOSE,RANDOM 105 mg/dL (74-106); MAGNESIUM 1.8 mg/dL (1.8-2.4); POTASSIUM 4.2 mmol/L (3.5-5.1); SODIUM 143 mmol/L (136-145)
[2017-12-01 07:35] LABS: CREATININE 2.1 mg/dL (0.55-1.02)
--- NOTE | 2017-12-01 09:14 | PN ---
Progress Note (short form) - Note Progress Note: Neurology HISTORY OF PRESENT ILLNESS: This is an 82 year old female with PMHx of COPD, PAD, lower extremity DVTs (dx 07/2015, on Eliquis), hypothyroidism, HTN, DJD, CKD stage III who presented to the ED after being found on the ground in her own urine, confused for an unknown period of time. During my eval, not able to tell me date. Does know she' s at [facility] but not able to state the name of president. Reportedly two days ago she got up off the couch, felt dizzy and fell to the ground. She does not recall if she hit any part of her body. She does not know if she lost consciousness. She states she was unable to get up and was on the ground for 2 days. She states she feels weak but denies any chest pain, nausea, vomiting, diarrhea, palpitations, headache, urinary symptoms. Was admitted with WBC 17.2, Cr 2.1, CPK 1141, trop 0.07. Head CT showed moderate atrophy and chronic microvascular ischemic disease changes without gross evidence of acute intracranial pathology. Today able to tell me name of President which I informed her of and previously was not able to. Does know it's December 01 but says its 1979. Informed that it's 2017. Fac[address]ask in place for respiratory difficulty. Active Medications Albuterol Sulfate (Ventolin 0.083% Nebulizer Soln -) 1 amp NEB Q4H PRN PRN Reason: SHORT OF BREATH/WHEEZING Albuterol/Ipratropium (Duoneb -) 1 amp NEB QIDR [facility] Last Admin: 12/01/17 05:30 Dose: 1 amp Amlodipine Besylate (Norvasc -) 5 mg PO DAILY [facility] Last Admin: 11/30/17 09:56 Dose: 5 mg Apixaban (Eliquis -) 5 mg PO BID [facility] Last Admin: 11/30/17 21:36 Dose: 5 mg Atorvastatin Calcium (Lipitor -) 10 mg PO HS [facility] Last Admin: 11/30/17 21:36 Dose: 10 mg Calcium Carbonate (Os-Boris 500mg -) 500 mg PO DAILY [facility] Last Admin: 11/30/17 09:56 Dose: 500 mg Cholecalciferol (Vitamin D3 -) 1,000 unit PO DAILY [facility] Last Admin: 11/30/17 09:56 Dose: 1,000 unit Docusate Sodium (Colace -) 100 mg PO BID [facility] Last Admin: 11/30/17 21:38 Dose: 100 mg Potassium Chloride/Sodium Chloride (1/2ns+20meq Kcl) 20 meq in 1,000 mls @ 75 mls/hr IV ASDIR [facility] Last Admin: 11/30/17 22:17 Dose: 75 mls/hr Levothyroxine Sodium (Synthroid -) 100 mcg PO ACBK [facility] Last Admin: 12/01/17 06:09 Dose: 100 mcg Metoprolol Tartrate (Lopressor -) 25 mg PO BID [facility] Last Admin: 11/30/17 21:37 Dose: 25 mg Ranitidine HCl (Zantac -) 150 mg PO DAILY [facility] Last Admin: 11/30/17 09:58 Dose: 150 mg PHYSICAL EXAMINATION Vital Signs Temperature 98.8 F 12/01/17 05:22 Pulse Rate 78 12/01/17 05:22 Respiratory Rate 22 12/01/17 05:22 Blood Pressure 173/75 12/01/17 05:22 O2 Sat by Pulse Oximetry (%) 91 L 11/30/17 21:00 GENERAL: Awake, A&Ox2 (person, place only), in no acute distress. HEAD: Normal with no signs of trauma. EYES: Pupils equal, round and reactive to light, extraocular movements intact, sclera anicteric, conjunctiva clear. No lid lag. EARS, NOSE, THROAT: Dry mucus membranes. Ears normal, nares patent, oropharynx clear without exudates NECK: Normal range of motion LUNGS: Breath sounds equal, clear to auscultation bilaterally. No wheezes, and no crackles. No accessory muscle use. HEART: Regular rate and rhythm ABDOMEN: Soft, nontender, not distended, normoactive bowel sounds, no guarding, no rebound, no masses MUSCULOSKELETAL: Normal range of motion at all joints. No CVA tenderness. UPPER EXTREMITIES: 2+ pulses, warm, well-perfused. No cyanosis. No clubbing. No peripheral edema. LOWER EXTREMITIES: 2+ pulses, warm, well-perfused. No calf tenderness. No peripheral edema. PSYCHIATRIC: Cooperative. Good eye contact. Appropriate mood and affect. SKIN: Warm, dry, no rashes or lesions noted, normal capillary refill. CBCD WBC 11.7 K/mm3 (4.0-10.0) H 12/01/17 06:35 RBC 3.18 M/mm3 (3.60-5.2) L 12/01/17 06:35 Hgb 10.0 GM/dL (10.7-15.3) L 12/01/17 06:35 Hct 29.1 % (32.4-45.2) L 12/01/17 06:35 MCV 91.6 fl (80-96) 12/01/17 06:35 MCHC 34.2 g/dl (32.0-36.0) 12/01/17 06:35 RDW 14.1 % (11.6-15.6) 12/01/17 06:35 Plt Count 153 K/MM3 (134-434) 12/01/17 06:35 MPV 10.5 fl (7.5-11.1) 12/01/17 06:35 CMP Sodium 143 mmol/L (136-145) 12/01/17 06:35 Potassium 4.2 mmol/L (3.5-5.1) 12/01/17 06:35 Chloride 111 mmol/L (98-107) H 12/01/17 06:35 Carbon Dioxide 23 mmol/L (21-32) 12/01/17 06:35 Anion Gap 9 (8-16) 12/01/17 06:35 BUN 41 mg/dL (7-18) H 12/01/17 06:35 Creatinine 2.1 mg/dL (0.55-1.02) H 12/01/17 06:35 Creat Clearance w eGFR 22.60 (>60) 11/30/17 06:10 Calcium 8.1 mg/dL (8.5-10.1) L 12/01/17 06:35 Total Bilirubin 0.7 mg/dL (0.2-1.0) 11/30/17 06:10 AST 30 U/L (15-37) 11/30/17 06:10 ALT 17 U/L (12-78) 11/30/17 06:10 Alkaline Phosphatase 74 U/L (45-117) 11/30/17 06:10 Total Protein 6.4 g/dl (6.4-8.2) 11/30/17 06:10 Albumin 3.0 g/dl (3.4-5.0) L 11/30/17 06:10 CT head reviewed Carotid doppler reviewed Assessment: 82 year old female with PMHx of COPD, PAD, lower extremity DVTs (dx 07/2015, on Eliquis), hypothyroidism, HTN, DJD, CKD stage III who presented to the ED after being found on the ground in her own urine, confused for an unknown period of time. During my eval, not able to tell me date. Does know she's at [facility] but not able to state the name of president. Reportedly two days ago she got up off the couch, felt dizzy and fell to the ground. She does not recall if she hit any part of her body. She does not know if she lost consciousness. Was admitted with WBC 17.2, Cr 2.1, CPK 1141, trop 0.07. Head CT showed moderate atrophy and chronic microvascular ischemic disease changes without gross evidence of acute intracranial pathology. More alert today and can tell me it's December and she's at [facility], now able to tell me name of President. Informed her correct year is 2017. Appears to have improving mental status and close to baseline. Does not appear consistent with seizure possibly syncopal episode Continute mgmt of Rhabdomyolysis CT head, Carotids reviewed as above IVF, continue to trend CPK Increased PO intake Renal consulted Monitor blood pressure, Orthostatics Caution with AC (on Eliquis) if recurrent falls May benefit from short term rehab, PT eval
[2017-12-01] MEDS: CHOLECALCIFEROL (VITAMIN D3) 1,000 UNIT TABLET (FP) PO SCH (09:18)
[2017-12-01] MEDS: CALCIUM (OYSTER SHELL) 500 MG TABLET (FP) PO SCH (09:18)
[2017-12-01] MEDS: RANITIDINE HCL 150 MG TABLET (FP) PO SCH (09:18)
[2017-12-01] MEDS: amLODIPine BESYLATE 5 MG TABLET (FP) PO SCH (09:18)
[2017-12-01] MEDS: METOPROLOL TARTRATE 25 MG TABLET (FP) PO SCH ×2 (09:18→21:20)
[2017-12-01] MEDS: APIXABAN 5 MG TABLET PO SCH ×2 (09:18→21:20)
[2017-12-01] MEDS: DOCUSATE SODIUM 100 MG CAPSULE (FP) PO SCH ×2 (09:18→21:20)
[2017-12-01] MEDS ORDERED: FUROSEMIDE 40 MG/4 ML INJECTABLE VIAL IVPUSH ONE (10:44)
--- NOTE | 2017-12-01 10:49 | PN ---
Progress Note, Physician Chief Complaint: PULMONARY ALERT,MORE CONGESTED TODAY - Current Medication List Current Medications: Active Medications Albuterol Sulfate (Ventolin 0.083% Nebulizer Soln -) 1 amp NEB Q4H PRN PRN Reason: SHORT OF BREATH/WHEEZING Albuterol/Ipratropium (Duoneb -) 1 amp NEB QIDR [facility] Last Admin: 12/01/17 05:30 Dose: 1 amp Amlodipine Besylate (Norvasc -) 5 mg PO DAILY [facility] Last Admin: 12/01/17 09:18 Dose: 5 mg Apixaban (Eliquis -) 5 mg PO BID [facility] Last Admin: 12/01/17 09:18 Dose: 5 mg Atorvastatin Calcium (Lipitor -) 10 mg PO HS [facility] Last Admin: 11/30/17 21:36 Dose: 10 mg Calcium Carbonate (Os-Boris 500mg -) 500 mg PO DAILY [facility] Last Admin: 12/01/17 09:18 Dose: 500 mg Cholecalciferol (Vitamin D3 -) 1,000 unit PO DAILY [facility] Last Admin: 12/01/17 09:18 Dose: 1,000 unit Docusate Sodium (Colace -) 100 mg PO BID [facility] Last Admin: 12/01/17 09:18 Dose: 100 mg Furosemide (Lasix Injection -) 40 mg IVPUSH ONCE ONE Stop: 12/01/17 10:45 Levothyroxine Sodium (Synthroid -) 100 mcg PO ACBK [facility] Last Admin: 12/01/17 06:09 Dose: 100 mcg Metoprolol Tartrate (Lopressor -) 25 mg PO BID [facility] Last Admin: 12/01/17 09:18 Dose: 25 mg Ranitidine HCl (Zantac -) 150 mg PO DAILY [facility] Last Admin: 12/01/17 09:18 Dose: 150 mg - Objective Vital Signs: Vital Signs Temperature 97.9 F 12/01/17 09:33 Pulse Rate 71 12/01/17 09:33 Respiratory Rate 20 12/01/17 09:33 Blood Pressure 164/68 12/01/17 09:33 O2 Sat by Pulse Oximetry (%) 97 12/01/17 09:00 Constitutional: Yes: Well Nourished, Calm Eyes: Yes: WNL HENT: Yes: WNL Neck: Yes: WNL Cardiovascular: Yes: Regular Rate and Rhythm, S1, S2 Respiratory: Yes: Rhonchi (SCATTTERED THOMAS WHEEZES AND RHONCHI), Wheezes Extremities: Yes: WNL Edema: No Labs: CBC, BMP 12/01/17 06:35 12/01/17 06:35 INR, PTT INR 1.26 (0.82-1.09) H 11/28/17 10:38 Assessment/Plan Problem List - Problems (1) Rhabdomyolysis Code(s): M62.82 - RHABDOMYOLYSIS (2) Acute kidney injury Code(s): N17.9 - ACUTE KIDNEY FAILURE, UNSPECIFIED (3) COPD (chronic obstructive pulmonary disease) Code(s): J44.9 - CHRONIC OBSTRUCTIVE PULMONARY DISEASE, UNSPECIFIED Qualifiers: COPD type: unspecified COPD Qualified Code(s): J44.9 - Chronic obstructive pulmonary disease, unspecified (4) Emphysema of lung Code(s): J43.9 - EMPHYSEMA, UNSPECIFIED (5) HTN (hypertension) Code(s): I10 - ESSENTIAL (PRIMARY) HYPERTENSION (6) Hypothyroidism Code(s): E03.9 - HYPOTHYROIDISM, UNSPECIFIED Assessment/Plan Rhabdomyolysis Acute on Chronic Renal Failure COPD/Emphysema Likely Chronic Hypoxic Respiratory Failure HTN Hypothyroidism - O2 to keep SpO2 >90% - inhaled bronchodilators standing and PRN - IVF - monitor urine output, creatinine - trend CPK - will need to check ambulatory SpO2 on room air to assess for home O2 when ready for discharge - pfts outpatient DR KIRK
--- NOTE | 2017-12-01 11:38 | PN ---
Progress Note, Physician Chief Complaint: Ms Dale says she is not doing well today. Became short of breath overnight. No cp or n/v. - Current Medication List Current Medications: Active Medications Albuterol Sulfate (Ventolin 0.083% Nebulizer Soln -) 1 amp NEB Q4H PRN PRN Reason: SHORT OF BREATH/WHEEZING Albuterol Sulfate (Ventolin 0.083% Nebulizer Soln -) 1 amp NEB RQID [facility] Amlodipine Besylate (Norvasc -) 5 mg PO DAILY [facility] Last Admin: 12/01/17 09:18 Dose: 5 mg Apixaban (Eliquis -) 5 mg PO BID [facility] Last Admin: 12/01/17 09:18 Dose: 5 mg Atorvastatin Calcium (Lipitor -) 10 mg PO HS [facility] Last Admin: 11/30/17 21:36 Dose: 10 mg Calcium Carbonate (Os-Boris 500mg -) 500 mg PO DAILY [facility] Last Admin: 12/01/17 09:18 Dose: 500 mg Cholecalciferol (Vitamin D3 -) 1,000 unit PO DAILY [facility] Last Admin: 12/01/17 09:18 Dose: 1,000 unit Docusate Sodium (Colace -) 100 mg PO BID [facility] Last Admin: 12/01/17 09:18 Dose: 100 mg Ipratropium [place] (Atrovent 0.02% Nebulizer -) 1 amp NEB RQID [facility] Levothyroxine Sodium (Synthroid -) 100 mcg PO ACBK [facility] Last Admin: 12/01/17 06:09 Dose: 100 mcg Metoprolol Tartrate (Lopressor -) 25 mg PO BID [facility] Last Admin: 12/01/17 09:18 Dose: 25 mg Ranitidine HCl (Zantac -) 150 mg PO DAILY [facility] Last Admin: 12/01/17 09:18 Dose: 150 mg - Objective Vital Signs: Vital Signs Temperature 36.6 C 12/01/17 09:33 Pulse Rate 71 12/01/17 09:33 Respiratory Rate 20 12/01/17 09:33 Blood Pressure 164/68 12/01/17 09:33 O2 Sat by Pulse Oximetry (%) 95 12/01/17 09:00 Constitutional: Yes: Mild Distress Cardiovascular: Yes: Regular Rate and Rhythm. No: Gallop, Murmur, Rub Respiratory: Yes: On Nasal O2, On Venti-Mask, Rales, Rhonchi (bilateral), Tachypnea. No: Regular, CTA Bilaterally, Wheezes Gastrointestinal: Yes: Normal Bowel Sounds, Soft. No: Distention, Tenderness Extremities: Yes: WNL Edema: No Labs: CBC, BMP 12/01/17 06:35 12/01/17 06:35 INR, PTT INR 1.26 (0.82-1.09) H 11/28/17 10:38 Problem List - Problems (1) Acute respiratory failure with hypoxia Code(s): J96.01 - ACUTE RESPIRATORY FAILURE WITH HYPOXIA (2) Pleural effusion Code(s): J90 - PLEURAL EFFUSION, NOT ELSEWHERE CLASSIFIED (3) Rhabdomyolysis Code(s): M62.82 - RHABDOMYOLYSIS Qualifiers: Rhabdomyolysis type: traumatic Encounter type: initial encounter Qualified Code(s): T79.6XXA - Traumatic ischemia of muscle, initial encounter (4) Acute kidney injury Code(s): N17.9 - ACUTE KIDNEY FAILURE, UNSPECIFIED (5) COPD (chronic obstructive pulmonary disease) Code(s): J44.9 - CHRONIC OBSTRUCTIVE PULMONARY DISEASE, UNSPECIFIED Qualifiers: COPD type: unspecified COPD Qualified Code(s): J44.9 - Chronic obstructive pulmonary disease, unspecified (6) HTN (hypertension) Code(s): I10 - ESSENTIAL (PRIMARY) HYPERTENSION (7) Hypothyroidism Code(s): E03.9 - HYPOTHYROIDISM, UNSPECIFIED (8) Fall Code(s): W19.XXXA - UNSPECIFIED FALL, INITIAL ENCOUNTER Qualifiers: Encounter type: initial encounter Qualified Code(s): W19.XXXA - Unspecified fall, initial encounter (9) History of DVT (deep vein thrombosis) Code(s): Z86.718 - PERSONAL HISTORY OF OTHER VENOUS THROMBOSIS AND EMBOLISM Assessment/Plan (1) Rhabdomyolysis Assessment/Plan: -improving -IVF stopped secondary to fluid overload causing acute hypoxic respiratory failure -also given lasix -monitor Code(s): M62.82 - RHABDOMYOLYSIS Qualifiers: Rhabdomyolysis type: traumatic Encounter type: initial encounter Qualified Code(s): T79.6XXA - Traumatic ischemia of muscle, initial encounter (2) Acute kidney injury Assessment/Plan: -on stage 3 CKD -stop IVF and lasix as above -Dr Rascon aware Code(s): N17.9 - ACUTE KIDNEY FAILURE, UNSPECIFIED (3) COPD (chronic obstructive pulmonary disease) Assessment/Plan: -case d/w Dr Hayward -not in exacerbation, respiratory distress secondary to fluid overload -continue current management Code(s): J44.9 - CHRONIC OBSTRUCTIVE PULMONARY DISEASE, UNSPECIFIED Qualifiers: COPD type: unspecified COPD Qualified Code(s): J44.9 - Chronic obstructive pulmonary disease, unspecified (4) HTN (hypertension) Assessment/Plan: -? if high from IVF -stop IVF -give lasix -continue current management Code(s): I10 - ESSENTIAL (PRIMARY) HYPERTENSION (5) Hypothyroidism Assessment/Plan: -continue synthroid Code(s): E03.9 - HYPOTHYROIDISM, UNSPECIFIED (6) Fall Assessment/Plan: -PT consult -may benefit from SNF placement Code(s): W19.XXXA - UNSPECIFIED FALL, INITIAL ENCOUNTER Qualifiers: Encounter type: initial encounter Qualified Code(s): W19.XXXA - Unspecified fall, initial encounter (7) History of DVT (deep vein thrombosis) Assessment/Plan: -continue eliquis Code(s): Z86.718 - PERSONAL HISTORY OF OTHER VENOUS THROMBOSIS AND EMBOLISM (8) Acute hypoxic respiratory failure -secondary to pleural effusions -give lasix 40mg IV x1 -monitor for improvement -continue oxygen support (9) Pleural effusions -stop IVF -lasix given
[2017-12-01 11:49] LABS: ALLENS TEST POSITIVE; ARTERIAL BLD GAS O2 SATURATION 89.7 % (90-98.9); ARTERIAL BLOOD GAS BASE EXCESS -2.6 meq/l (-2-2); ARTERIAL BLOOD GAS PCO2 30.8 mmHg (35-45); ARTERIAL BLOOD GAS PO2 54.4 mmHg (68-100); ARTERIAL BLOOD GAS pH 7.43 (7.35-7.45)
[2017-12-01] MEDS: IPRATROPIUM BR 0.02% 0.5 MG/2.5 ML VIAL.NEB. NEB SCH ×3 (12:10→20:24)
[2017-12-01] MEDS: ALBUTEROL SO4 0.083% IH SOL 2.5 MG/3 ML VIAL.NEB. NEB SCH ×3 (12:10→20:24)
--- NOTE | 2017-12-01 17:54 | PN ---
Progress Note (short form) - Note Progress Note: Renal follow up for MARCIAL on CKD Pt seen and examined at the bedside on NRB mask after being noted to be hypoxic this am she reports feeling better IVF has been held making urine Vital Signs Temperature 98 F 12/01/17 13:56 Pulse Rate 64 12/01/17 13:56 Respiratory Rate 22 12/01/17 13:56 Blood Pressure 172/66 12/01/17 13:56 O2 Sat by Pulse Oximetry (%) 95 12/01/17 09:00 Intake & Output 11/28/17 11/29/17 11/30/17 12/01/17 23:59 23:59 23:59 23:59 Intake Total 340 1670 2049 210 Balance 340 1670 2049 210 Weight 58.967 kg 58.967 kg NAD awake and alert RRR, No M/R Dec BS at lung bases No LE edema CBC, BMP 12/01/17 06:35 12/01/17 06:35 Current Medications Albuterol Sulfate (Ventolin 0.083% Nebulizer Soln -) 1 amp NEB Q4H PRN PRN Reason: SHORT OF BREATH/WHEEZING Albuterol Sulfate (Ventolin 0.083% Nebulizer Soln -) 1 amp NEB RQID [facility] Last Admin: 12/01/17 16:58 Dose: 1 amp Amlodipine Besylate (Norvasc -) 5 mg PO DAILY [facility] Last Admin: 12/01/17 09:18 Dose: 5 mg Apixaban (Eliquis -) 5 mg PO BID [facility] Last Admin: 12/01/17 09:18 Dose: 5 mg Atorvastatin Calcium (Lipitor -) 10 mg PO HS [facility] Last Admin: 11/30/17 21:36 Dose: 10 mg Calcium Carbonate (Os-Boris 500mg -) 500 mg PO DAILY [facility] Last Admin: 12/01/17 09:18 Dose: 500 mg Cholecalciferol (Vitamin D3 -) 1,000 unit PO DAILY [facility] Last Admin: 12/01/17 09:18 Dose: 1,000 unit Docusate Sodium (Colace -) 100 mg PO BID [facility] Last Admin: 12/01/17 09:18 Dose: 100 mg Ipratropium [place] (Atrovent 0.02% Nebulizer -) 1 amp NEB RQID [facility] Last Admin: 12/01/17 16:57 Dose: 1 amp Levothyroxine Sodium (Synthroid -) 100 mcg PO ACBK [facility] Last Admin: 12/01/17 06:09 Dose: 100 mcg Metoprolol Tartrate (Lopressor -) 25 mg PO BID [facility] Last Admin: 12/01/17 09:18 Dose: 25 mg Ranitidine HCl (Zantac -) 150 mg PO DAILY [facility] Last Admin: 12/01/17 09:18 Dose: 150 mg 82 year old woman with PMhx of COPD, PAD, LE DVTs (dx 07/2015, on Eliquis), hypothyroidism (on synthroid), HTN, DJD, and CKD stage III presented s/p fall at home and prolonged time on the ground with Cr of 2.1 #MARCIAL on CKD #Rhabdonyolyiss #Hypertension #SOB/Hypoxia Renal function stable over last 72 hours despite IVF CK improved, unlikely to cause renal injury at these levels agree with holding IVF at this time because of hypoxia given PRN Lasix if there is congestion on imaging of chest continue amlodipine, Metoprolol Bora Rascon DO
[2017-12-01] MEDS: ATORVASTATIN CA 10 MG TABLET (FP) PO SCH (21:20)
[2017-12-02] MEDS: LEVOTHYROXINE NA 100 MCG TABLET (FP) PO SCH (06:30)
[2017-12-02] MEDS: IPRATROPIUM BR 0.02% 0.5 MG/2.5 ML VIAL.NEB. NEB SCH ×4 (07:40→20:00)
[2017-12-02] MEDS: ALBUTEROL SO4 0.083% IH SOL 2.5 MG/3 ML VIAL.NEB. NEB SCH ×4 (07:40→20:00)
[2017-12-02 07:48] LABS: BASO % 0.3 % (0-2.0); EOS % 1.5 % (0-4.5); HEMATOCRIT 28.3 % (32.4-45.2); HEMOGLOBIN 9.7 GM/dL (10.7-15.3); LYMPH % 7.1 % (8-40); MCH 31.2 pg (25.7-33.7); MCHC 34.3 g/dl (32.0-36.0); MEAN CELL VOLUME 90.8 fl (80-96); MEAN PLT VOLUME 10.1 fl (7.5-11.1); MONO % 8.7 % (3.8-10.2); NEUT % 82.4 % (42.8-82.8); PLATELET COUNT 161 K/MM3 (134-434); RBC 3.12 M/mm3 (3.60-5.2); RDW 13.9 % (11.6-15.6); WHITE BLOOD COUNT 10.4 K/mm3 (4.0-10.0)
[2017-12-02 08:29] LABS: ANION GAP 13 (8-16); BLOOD UREA NITROGEN 47 mg/dL (7-18); CALCIUM 8.3 mg/dL (8.5-10.1); CHLORIDE 108 mmol/L (98-107); CO2 22 mmol/L (21-32); GLUCOSE,RANDOM 96 mg/dL (74-106); SODIUM 143 mmol/L (136-145)
[2017-12-02 08:35] LABS: CREATININE 2.5 mg/dL (0.55-1.02); PHOSPHOROUS 4.3 mg/dL (2.5-4.9)
[2017-12-02] MEDS: CALCIUM (OYSTER SHELL) 500 MG TABLET (FP) PO SCH (09:22)
[2017-12-02] MEDS: amLODIPine BESYLATE 5 MG TABLET (FP) PO SCH (09:22)
[2017-12-02] MEDS: APIXABAN 5 MG TABLET PO SCH ×2 (09:22→21:12)
[2017-12-02] MEDS: CHOLECALCIFEROL (VITAMIN D3) 1,000 UNIT TABLET (FP) PO SCH (09:22)
[2017-12-02] MEDS: DOCUSATE SODIUM 100 MG CAPSULE (FP) PO SCH ×2 (09:22→21:11)
[2017-12-02] MEDS: RANITIDINE HCL 150 MG TABLET (FP) PO SCH (09:22)
[2017-12-02] MEDS: METOPROLOL TARTRATE 25 MG TABLET (FP) PO SCH ×2 (09:22→21:11)
--- NOTE | 2017-12-02 09:37 | PN ---
Progress Note (short form) - Note Progress Note: Neurology HISTORY OF PRESENT ILLNESS: This is an 82 year old female with PMHx of COPD, PAD, lower extremity DVTs (dx 07/2015, on Eliquis), hypothyroidism, HTN, DJD, CKD stage III who presented to the ED after being found on the ground in her own urine, confused for an unknown period of time. During my eval, not able to tell me date. Does know she' s at [facility] but not able to state the name of president. Reportedly two days ago she got up off the couch, felt dizzy and fell to the ground. She does not recall if she hit any part of her body. She does not know if she lost consciousness. She states she was unable to get up and was on the ground for 2 days. She states she feels weak but denies any chest pain, nausea, vomiting, diarrhea, palpitations, headache, urinary symptoms. Was admitted with WBC 17.2, Cr 2.1, CPK 1141, trop 0.07. Head CT showed moderate atrophy and chronic microvascular ischemic disease changes without gross evidence of acute intracranial pathology. Able to tell me name of President which I informed her of and previously was not able to. Does know it's December, still said 1980. Informed that it's 2017. Neurologically otherwise no new events. Active Medications Albuterol Sulfate (Ventolin 0.083% Nebulizer Soln -) 1 amp NEB Q4H PRN PRN Reason: SHORT OF BREATH/WHEEZING Albuterol Sulfate (Ventolin 0.083% Nebulizer Soln -) 1 amp NEB RQID [facility] Last Admin: 12/02/17 07:40 Dose: 1 amp Amlodipine Besylate (Norvasc -) 5 mg PO DAILY [facility] Last Admin: 12/02/17 09:22 Dose: 5 mg Apixaban (Eliquis -) 5 mg PO BID [facility] Last Admin: 12/02/17 09:22 Dose: 5 mg Atorvastatin Calcium (Lipitor -) 10 mg PO HS [facility] Last Admin: 12/01/17 21:20 Dose: 10 mg Calcium Carbonate (Os-Boris 500mg -) 500 mg PO DAILY [facility] Last Admin: 12/02/17 09:22 Dose: 500 mg Cholecalciferol (Vitamin D3 -) 1,000 unit PO DAILY [facility] Last Admin: 12/02/17 09:22 Dose: 1,000 unit Docusate Sodium (Colace -) 100 mg PO BID [facility] Last Admin: 12/02/17 09:22 Dose: 100 mg Ipratropium [place] (Atrovent 0.02% Nebulizer -) 1 amp NEB RQID [facility] Last Admin: 12/02/17 07:40 Dose: 1 amp Levothyroxine Sodium (Synthroid -) 100 mcg PO ACBK [facility] Last Admin: 12/02/17 06:30 Dose: 100 mcg Metoprolol Tartrate (Lopressor -) 25 mg PO BID [facility] Last Admin: 12/02/17 09:22 Dose: 25 mg Ranitidine HCl (Zantac -) 150 mg PO DAILY [facility] Last Admin: 12/02/17 09:22 Dose: 150 mg PHYSICAL EXAMINATION Vital Signs Period Temp Pulse Resp BP Sys/Pascual Pulse Ox Last 24 Hr 97.6 F-99.0 F 64-76 20-22 142-172/66-93 95 GENERAL: Awake, A&Ox2 (person, place only), in no acute distress. HEAD: Normal with no signs of trauma. EYES: Pupils equal, round and reactive to light, extraocular movements intact, sclera anicteric, conjunctiva clear. No lid lag. EARS, NOSE, THROAT: Dry mucus membranes. Ears normal, nares patent, oropharynx clear without exudates NECK: Normal range of motion LUNGS: Breath sounds equal, clear to auscultation bilaterally. No wheezes, and no crackles. No accessory muscle use. HEART: Regular rate and rhythm ABDOMEN: Soft, nontender, not distended, normoactive bowel sounds, no guarding, no rebound, no masses MUSCULOSKELETAL: Normal range of motion at all joints. No CVA tenderness. UPPER EXTREMITIES: 2+ pulses, warm, well-perfused. No cyanosis. No clubbing. No peripheral edema. LOWER EXTREMITIES: 2+ pulses, warm, well-perfused. No calf tenderness. No peripheral edema. PSYCHIATRIC: Cooperative. Good eye contact. Appropriate mood and affect. SKIN: Warm, dry, no rashes or lesions noted, normal capillary refill. CBCD WBC 10.4 K/mm3 (4.0-10.0) H 12/02/17 06:44 RBC 3.12 M/mm3 (3.60-5.2) L 12/02/17 06:44 Hgb 9.7 GM/dL (10.7-15.3) L 12/02/17 06:44 Hct 28.3 % (32.4-45.2) L 12/02/17 06:44 MCV 90.8 fl (80-96) 12/02/17 06:44 MCHC 34.3 g/dl (32.0-36.0) 12/02/17 06:44 RDW 13.9 % (11.6-15.6) 12/02/17 06:44 Plt Count 161 K/MM3 (134-434) 12/02/17 06:44 MPV 10.1 fl (7.5-11.1) 12/02/17 06:44 CMP Sodium 143 mmol/L (136-145) 12/02/17 06:44 Potassium 4.0 mmol/L (3.5-5.1) 12/02/17 06:44 Chloride 108 mmol/L (98-107) H 12/02/17 06:44 Carbon Dioxide 22 mmol/L (21-32) 12/02/17 06:44 Anion Gap 13 (8-16) 12/02/17 06:44 BUN 47 mg/dL (7-18) H 12/02/17 06:44 Creatinine 2.5 mg/dL (0.55-1.02) H 12/02/17 06:44 Creat Clearance w eGFR 22.60 (>60) 11/30/17 06:10 Calcium 8.3 mg/dL (8.5-10.1) L 12/02/17 06:44 Total Bilirubin 0.7 mg/dL (0.2-1.0) 11/30/17 06:10 AST 30 U/L (15-37) 11/30/17 06:10 ALT 17 U/L (12-78) 11/30/17 06:10 Alkaline Phosphatase 74 U/L (45-117) 11/30/17 06:10 Total Protein 6.4 g/dl (6.4-8.2) 11/30/17 06:10 Albumin 3.0 g/dl (3.4-5.0) L 11/30/17 06:10 CT head reviewed Carotid doppler reviewed Assessment: 82 year old female with PMHx of COPD, PAD, lower extremity DVTs (dx 07/2015, on Eliquis), hypothyroidism, HTN, DJD, CKD stage III who presented to the ED after being found on the ground in her own urine, confused for an unknown period of time. During my eval, not able to tell me date. Does know she's at [facility] but not able to state the name of president. Reportedly two days ago she got up off the couch, felt dizzy and fell to the ground. She does not recall if she hit any part of her body. She does not know if she lost consciousness. Was admitted with WBC 17.2, Cr 2.1, CPK 1141, trop 0.07. Head CT showed moderate atrophy and chronic microvascular ischemic disease changes without gross evidence of acute intracranial pathology. More alert today and can tell me it's May and she's at [facility], now able to tell me name of President. Informed her correct year is 2017. Appears to have improving mental status and close to baseline. Does not appear consistent with seizure possibly syncopal episode Rhabdomyolysis improved with IVF, respiratory distubrance possibly due to volume overlead CT head, Carotids reviewed as above Monitor blood pressure, normotensive range goal Caution with AC (on Eliquis) if recurrent falls Neurologically stable at this time
--- NOTE | 2017-12-02 11:29 | PN ---
Progress Note, Physician History of Present Illness: PULMONARY ALERT,FEELING BETTER,LESS DYSPNEIC,LESS CONGESTED - Current Medication List Current Medications: Active Medications Albuterol Sulfate (Ventolin 0.083% Nebulizer Soln -) 1 amp NEB Q4H PRN PRN Reason: SHORT OF BREATH/WHEEZING Albuterol Sulfate (Ventolin 0.083% Nebulizer Soln -) 1 amp NEB RQID [facility] Last Admin: 12/02/17 07:40 Dose: 1 amp Amlodipine Besylate (Norvasc -) 5 mg PO DAILY [facility] Last Admin: 12/02/17 09:22 Dose: 5 mg Apixaban (Eliquis -) 5 mg PO BID [facility] Last Admin: 12/02/17 09:22 Dose: 5 mg Atorvastatin Calcium (Lipitor -) 10 mg PO HS [facility] Last Admin: 12/01/17 21:20 Dose: 10 mg Calcium Carbonate (Os-Boris 500mg -) 500 mg PO DAILY [facility] Last Admin: 12/02/17 09:22 Dose: 500 mg Cholecalciferol (Vitamin D3 -) 1,000 unit PO DAILY [facility] Last Admin: 12/02/17 09:22 Dose: 1,000 unit Docusate Sodium (Colace -) 100 mg PO BID [facility] Last Admin: 12/02/17 09:22 Dose: 100 mg Ipratropium [place] (Atrovent 0.02% Nebulizer -) 1 amp NEB RQID [facility] Last Admin: 12/02/17 07:40 Dose: 1 amp Levothyroxine Sodium (Synthroid -) 100 mcg PO ACBK [facility] Last Admin: 12/02/17 06:30 Dose: 100 mcg Metoprolol Tartrate (Lopressor -) 25 mg PO BID [facility] Last Admin: 12/02/17 09:22 Dose: 25 mg Ranitidine HCl (Zantac -) 150 mg PO DAILY [facility] Last Admin: 12/02/17 09:22 Dose: 150 mg - Objective Vital Signs: Vital Signs Temperature 98.2 F 12/02/17 06:00 Pulse Rate 74 12/02/17 06:00 Respiratory Rate 20 12/02/17 06:00 Blood Pressure 155/76 12/02/17 06:00 O2 Sat by Pulse Oximetry (%) 95 12/01/17 21:00 Constitutional: Yes: Well Nourished, Calm Eyes: Yes: WNL HENT: Yes: WNL Neck: Yes: WNL Cardiovascular: Yes: Pulse Irregular, S1, S2 Respiratory: Yes: Rhonchi (SCATTERED RHONCHI) Gastrointestinal: Yes: Normal Bowel Sounds, Soft Extremities: Yes: WNL Edema: No Labs: CBC, BMP 12/02/17 06:44 12/02/17 06:44 INR, PTT INR 1.26 (0.82-1.09) H 11/28/17 10:38 - ....Imaging Chest X-ray: Report Reviewed, Image Reviewed Assessment/Plan Problem List - Problems (1) Rhabdomyolysis Code(s): M62.82 - RHABDOMYOLYSIS (2) Acute kidney injury Code(s): N17.9 - ACUTE KIDNEY FAILURE, UNSPECIFIED (3) COPD (chronic obstructive pulmonary disease) Code(s): J44.9 - CHRONIC OBSTRUCTIVE PULMONARY DISEASE, UNSPECIFIED Qualifiers: COPD type: unspecified COPD Qualified Code(s): J44.9 - Chronic obstructive pulmonary disease, unspecified (4) Emphysema of lung Code(s): J43.9 - EMPHYSEMA, UNSPECIFIED (5) HTN (hypertension) Code(s): I10 - ESSENTIAL (PRIMARY) HYPERTENSION (6) Hypothyroidism Code(s): E03.9 - HYPOTHYROIDISM, UNSPECIFIED Assessment/Plan Rhabdomyolysis Acute on Chronic Renal Failure COPD/Emphysema Likely Chronic Hypoxic Respiratory Failure HTN Hypothyroidism CHF - O2 to keep SpO2 >90% - inhaled bronchodilators standing and PRN - IVF - monitor urine output, creatinine - trend CPK - will need to check ambulatory SpO2 on room air to assess for home O2 when ready for discharge - pfts outpatient DR KIRK
--- NOTE | 2017-12-02 11:30 | PN ---
Progress Note, Physician Chief Complaint: Ms Dale says her breathing is improved but still not doing well. No cp or n/v. - Current Medication List Current Medications: Active Medications Albuterol Sulfate (Ventolin 0.083% Nebulizer Soln -) 1 amp NEB Q4H PRN PRN Reason: SHORT OF BREATH/WHEEZING Albuterol Sulfate (Ventolin 0.083% Nebulizer Soln -) 1 amp NEB RQID [facility] Last Admin: 12/02/17 07:40 Dose: 1 amp Amlodipine Besylate (Norvasc -) 5 mg PO DAILY [facility] Last Admin: 12/02/17 09:22 Dose: 5 mg Apixaban (Eliquis -) 5 mg PO BID [facility] Last Admin: 12/02/17 09:22 Dose: 5 mg Atorvastatin Calcium (Lipitor -) 10 mg PO HS [facility] Last Admin: 12/01/17 21:20 Dose: 10 mg Calcium Carbonate (Os-Boris 500mg -) 500 mg PO DAILY [facility] Last Admin: 12/02/17 09:22 Dose: 500 mg Cholecalciferol (Vitamin D3 -) 1,000 unit PO DAILY [facility] Last Admin: 12/02/17 09:22 Dose: 1,000 unit Docusate Sodium (Colace -) 100 mg PO BID [facility] Last Admin: 12/02/17 09:22 Dose: 100 mg Ipratropium [place] (Atrovent 0.02% Nebulizer -) 1 amp NEB RQID [facility] Last Admin: 12/02/17 07:40 Dose: 1 amp Levothyroxine Sodium (Synthroid -) 100 mcg PO ACBK [facility] Last Admin: 12/02/17 06:30 Dose: 100 mcg Metoprolol Tartrate (Lopressor -) 25 mg PO BID [facility] Last Admin: 12/02/17 09:22 Dose: 25 mg Ranitidine HCl (Zantac -) 150 mg PO DAILY [facility] Last Admin: 12/02/17 09:22 Dose: 150 mg - Objective Vital Signs: Vital Signs Temperature 36.8 C 12/02/17 06:00 Pulse Rate 74 12/02/17 06:00 Respiratory Rate 20 12/02/17 06:00 Blood Pressure 155/76 12/02/17 06:00 O2 Sat by Pulse Oximetry (%) 95 12/01/17 21:00 Constitutional: Yes: Well Nourished, No Distress, Calm Cardiovascular: Yes: Regular Rate and Rhythm. No: Gallop, Murmur, Rub Respiratory: Yes: On Venti-Mask, Rales, Tachypnea. No: Regular, CTA Bilaterally , Rhonchi, Wheezes Gastrointestinal: Yes: Normal Bowel Sounds, Soft. No: Distention, Tenderness Extremities: Yes: WNL Edema: No Labs: CBC, BMP 12/02/17 06:44 12/02/17 06:44 INR, PTT INR 1.26 (0.82-1.09) H 11/28/17 10:38 Problem List - Problems (1) Acute respiratory failure with hypoxia Code(s): J96.01 - ACUTE RESPIRATORY FAILURE WITH HYPOXIA (2) Pleural effusion Code(s): J90 - PLEURAL EFFUSION, NOT ELSEWHERE CLASSIFIED (3) Rhabdomyolysis Code(s): M62.82 - RHABDOMYOLYSIS Qualifiers: Rhabdomyolysis type: traumatic Encounter type: initial encounter Qualified Code(s): T79.6XXA - Traumatic ischemia of muscle, initial encounter (4) Acute kidney injury Code(s): N17.9 - ACUTE KIDNEY FAILURE, UNSPECIFIED (5) COPD (chronic obstructive pulmonary disease) Code(s): J44.9 - CHRONIC OBSTRUCTIVE PULMONARY DISEASE, UNSPECIFIED Qualifiers: COPD type: unspecified COPD Qualified Code(s): J44.9 - Chronic obstructive pulmonary disease, unspecified (6) HTN (hypertension) Code(s): I10 - ESSENTIAL (PRIMARY) HYPERTENSION (7) Hypothyroidism Code(s): E03.9 - HYPOTHYROIDISM, UNSPECIFIED (8) Fall Code(s): W19.XXXA - UNSPECIFIED FALL, INITIAL ENCOUNTER Qualifiers: Encounter type: initial encounter Qualified Code(s): W19.XXXA - Unspecified fall, initial encounter (9) History of DVT (deep vein thrombosis) Code(s): Z86.718 - PERSONAL HISTORY OF OTHER VENOUS THROMBOSIS AND EMBOLISM Assessment/Plan (1) Rhabdomyolysis Assessment/Plan: -resolved Code(s): M62.82 - RHABDOMYOLYSIS Qualifiers: Rhabdomyolysis type: traumatic Encounter type: initial encounter Qualified Code(s): T79.6XXA - Traumatic ischemia of muscle, initial encounter (2) Acute kidney injury Assessment/Plan: -worsened today after lasix given yesterday -however still in respiratory distress -case d/w Dr Rascon -will give another lasix 40mg IV x1 and monitor Code(s): N17.9 - ACUTE KIDNEY FAILURE, UNSPECIFIED (3) COPD (chronic obstructive pulmonary disease) Assessment/Plan: -case d/w Dr Hayward -not in exacerbation, respiratory distress secondary to fluid overload -continue current management Code(s): J44.9 - CHRONIC OBSTRUCTIVE PULMONARY DISEASE, UNSPECIFIED Qualifiers: COPD type: unspecified COPD Qualified Code(s): J44.9 - Chronic obstructive pulmonary disease, unspecified (4) HTN (hypertension) Assessment/Plan: -will receive another lasix 40mg IV today -continue amlodipine and toprol -if still elevated tomorrow, increase amlodipine Code(s): I10 - ESSENTIAL (PRIMARY) HYPERTENSION (5) Hypothyroidism Assessment/Plan: -continue synthroid Code(s): E03.9 - HYPOTHYROIDISM, UNSPECIFIED (6) Fall Assessment/Plan: -PT consult -may benefit from SNF placement Code(s): W19.XXXA - UNSPECIFIED FALL, INITIAL ENCOUNTER Qualifiers: Encounter type: initial encounter Qualified Code(s): W19.XXXA - Unspecified fall, initial encounter (7) History of DVT (deep vein thrombosis) Assessment/Plan: -continue eliquis Code(s): Z86.718 - PERSONAL HISTORY OF OTHER VENOUS THROMBOSIS AND EMBOLISM (8) Acute hypoxic respiratory failure -improved but still requiring significant amount of oxygen support -continue IV lasix as above (9) Pleural effusions -repeat lasix today
[2017-12-02] MEDS ORDERED: FUROSEMIDE 40 MG/4 ML INJECTABLE VIAL IVPUSH ONE (15:00)
--- NOTE | 2017-12-02 17:21 | PN ---
Progress Note (short form) - Note Progress Note: Renal follow up for MARCIAL on CKD Pt seen and examined at the bedside awake and alert on facemask O2 continues to report cough and sob has mild central chest pain when coughing no N/V/D, Fever, chills making urine Vital Signs Temperature 97.8 F 12/02/17 16:29 Pulse Rate 78 12/02/17 16:29 Respiratory Rate 20 12/02/17 16:29 Blood Pressure 157/76 12/02/17 16:29 O2 Sat by Pulse Oximetry (%) 95 12/01/17 21:00 Intake & Output 11/29/17 11/30/17 12/01/17 12/02/17 23:59 23:59 23:59 23:59 Intake Total 1669 2049 310 110 Balance 1669 2049 310 110 Weight 58.967 kg NAD awake and alert RRR, No M/R Dec BS at lung bases, no rales, wheeze no bladder distension No LE edema CBC, BMP 12/02/17 06:44 12/02/17 06:44 Current Medications Albuterol Sulfate (Ventolin 0.083% Nebulizer Soln -) 1 amp NEB Q4H PRN PRN Reason: SHORT OF BREATH/WHEEZING Albuterol Sulfate (Ventolin 0.083% Nebulizer Soln -) 1 amp NEB RQID [facility] Last Admin: 12/02/17 15:40 Dose: 1 amp Amlodipine Besylate (Norvasc -) 5 mg PO DAILY [facility] Last Admin: 12/02/17 09:22 Dose: 5 mg Apixaban (Eliquis -) 5 mg PO BID [facility] Last Admin: 12/02/17 09:22 Dose: 5 mg Atorvastatin Calcium (Lipitor -) 10 mg PO HS [facility] Last Admin: 12/01/17 21:20 Dose: 10 mg Calcium Carbonate (Os-Boris 500mg -) 500 mg PO DAILY [facility] Last Admin: 12/02/17 09:22 Dose: 500 mg Cholecalciferol (Vitamin D3 -) 1,000 unit PO DAILY [facility] Last Admin: 12/02/17 09:22 Dose: 1,000 unit Docusate Sodium (Colace -) 100 mg PO BID [facility] Last Admin: 12/02/17 09:22 Dose: 100 mg Ipratropium [place] (Atrovent 0.02% Nebulizer -) 1 amp NEB RQID [facility] Last Admin: 12/02/17 15:40 Dose: 1 amp Levothyroxine Sodium (Synthroid -) 100 mcg PO ACBK [facility] Last Admin: 12/02/17 06:30 Dose: 100 mcg Metoprolol Tartrate (Lopressor -) 25 mg PO BID [facility] Last Admin: 12/02/17 09:22 Dose: 25 mg Ranitidine HCl (Zantac -) 150 mg PO DAILY [facility] Last Admin: 12/02/17 09:22 Dose: 150 mg 82 year old woman with PMhx of COPD, PAD, LE DVTs (dx 07/2015, on Eliquis), hypothyroidism (on synthroid), HTN, DJD, and CKD stage III presented s/p fall at home and prolonged time on the ground with Cr of 2.1 #MARCIAL on CKD #Rhabdonyolyiss #Hypertension #SOB/Hypoxia Renal function worsened s/p IV Laisx yesterday but pt continues to report cough and sob and received another IVP of Lasix today Pt with Right Hydronephrosis on US however this was present on prior US done in 2014 so unlikely contributing to acute renal injury CPK levels have improved Trend BUN/Cr and electrolytes Repeat CXR in the morning continue supplemental O2 as per pulmonary Bora Rascon DO
[2017-12-02] MEDS: ATORVASTATIN CA 10 MG TABLET (FP) PO SCH (21:11)
[2017-12-03] MEDS: LEVOTHYROXINE NA 100 MCG TABLET (FP) PO SCH (06:22)
[2017-12-03 07:39] LABS: BASO % 0.3 % (0-2.0); HEMATOCRIT 31.3 % (32.4-45.2); HEMOGLOBIN 10.7 GM/dL (10.7-15.3); LYMPH % 8.2 % (8-40); MCH 31.1 pg (25.7-33.7); MCHC 34.2 g/dl (32.0-36.0); MEAN CELL VOLUME 91.1 fl (80-96); MEAN PLT VOLUME 10.4 fl (7.5-11.1); MONO % 8.9 % (3.8-10.2); NEUT % 80.6 % (42.8-82.8); PLATELET COUNT 187 K/MM3 (134-434); RBC 3.44 M/mm3 (3.60-5.2); RDW 14.1 % (11.6-15.6); WHITE BLOOD COUNT 11.2 K/mm3 (4.0-10.0)
[2017-12-03 08:10] LABS: ANION GAP 9 (8-16); BLOOD UREA NITROGEN 56 mg/dL (7-18); CALCIUM 8.1 mg/dL (8.5-10.1); CHLORIDE 108 mmol/L (98-107); CO2 27 mmol/L (21-32); CREATININE 2.6 mg/dL (0.55-1.02); GLUCOSE,RANDOM 94 mg/dL (74-106); MAGNESIUM 2.1 mg/dL (1.8-2.4); PHOSPHOROUS 5.2 mg/dL (2.5-4.9); POTASSIUM 4.1 mmol/L (3.5-5.1); SODIUM 144 mmol/L (136-145)
[2017-12-03] MEDS: ALBUTEROL SO4 0.083% IH SOL 2.5 MG/3 ML VIAL.NEB. NEB SCH ×4 (08:30→20:41)
[2017-12-03] MEDS: IPRATROPIUM BR 0.02% 0.5 MG/2.5 ML VIAL.NEB. NEB SCH ×4 (08:30→20:41)
[2017-12-03] MEDS: RANITIDINE HCL 150 MG TABLET (FP) PO SCH (09:12)
[2017-12-03] MEDS: METOPROLOL TARTRATE 25 MG TABLET (FP) PO SCH ×2 (09:12→21:37)
[2017-12-03] MEDS: CALCIUM (OYSTER SHELL) 500 MG TABLET (FP) PO SCH (09:12)
[2017-12-03] MEDS: CHOLECALCIFEROL (VITAMIN D3) 1,000 UNIT TABLET (FP) PO SCH (09:12)
[2017-12-03] MEDS: APIXABAN 5 MG TABLET PO SCH ×2 (09:12→21:37)
[2017-12-03] MEDS: amLODIPine BESYLATE 5 MG TABLET (FP) PO SCH (09:12)
[2017-12-03] MEDS: DOCUSATE SODIUM 100 MG CAPSULE (FP) PO SCH ×2 (09:13→21:37)
--- NOTE | 2017-12-03 09:13 | PN ---
Progress Note (short form) - Note Progress Note: Neurology HISTORY OF PRESENT ILLNESS: This is an 82 year old female with PMHx of COPD, PAD, lower extremity DVTs (dx 07/2015, on Eliquis), hypothyroidism, HTN, DJD, CKD stage III who presented to the ED after being found on the ground in her own urine, confused for an unknown period of time. During my eval, not able to tell me date. Does know she' s at [facility] but not able to state the name of president. Reportedly two days ago she got up off the couch, felt dizzy and fell to the ground. She does not recall if she hit any part of her body. She does not know if she lost consciousness. She states she was unable to get up and was on the ground for 2 days. She states she feels weak but denies any chest pain, nausea, vomiting, diarrhea, palpitations, headache, urinary symptoms. Was admitted with WBC 17.2, Cr 2.1, CPK 1141, trop 0.07. Head CT showed moderate atrophy and chronic microvascular ischemic disease changes without gross evidence of acute intracranial pathology. Has had improving mental status and reports her breathing has been better as well. Active Medications Albuterol Sulfate (Ventolin 0.083% Nebulizer Soln -) 1 amp NEB Q4H PRN PRN Reason: SHORT OF BREATH/WHEEZING Albuterol Sulfate (Ventolin 0.083% Nebulizer Soln -) 1 amp NEB RQID [facility] Last Admin: 12/02/17 20:00 Dose: 1 amp Amlodipine Besylate (Norvasc -) 5 mg PO DAILY [facility] Last Admin: 12/02/17 09:22 Dose: 5 mg Apixaban (Eliquis -) 5 mg PO BID [facility] Last Admin: 12/02/17 21:12 Dose: 5 mg Atorvastatin Calcium (Lipitor -) 10 mg PO HS [facility] Last Admin: 12/02/17 21:11 Dose: 10 mg Calcium Carbonate (Os-Boris 500mg -) 500 mg PO DAILY [facility] Last Admin: 12/02/17 09:22 Dose: 500 mg Cholecalciferol (Vitamin D3 -) 1,000 unit PO DAILY [facility] Last Admin: 12/02/17 09:22 Dose: 1,000 unit Docusate Sodium (Colace -) 100 mg PO BID [facility] Last Admin: 12/02/17 21:11 Dose: 100 mg Ipratropium [place] (Atrovent 0.02% Nebulizer -) 1 amp NEB RQID [facility] Last Admin: 12/02/17 20:00 Dose: 1 amp Levothyroxine Sodium (Synthroid -) 100 mcg PO ACBK [facility] Last Admin: 12/03/17 06:22 Dose: 100 mcg Metoprolol Tartrate (Lopressor -) 25 mg PO BID [facility] Last Admin: 12/02/17 21:11 Dose: 25 mg Ranitidine HCl (Zantac -) 150 mg PO DAILY [facility] Last Admin: 12/02/17 09:22 Dose: 150 mg PHYSICAL EXAMINATION Vital Signs Temperature 98.3 F 12/03/17 05:14 Pulse Rate 68 12/03/17 05:14 Respiratory Rate 20 12/03/17 05:14 Blood Pressure 162/66 12/03/17 05:14 O2 Sat by Pulse Oximetry (%) 95 12/02/17 21:00 GENERAL: Awake, A&Ox2 (person, place only), in no acute distress. HEAD: Normal with no signs of trauma. EYES: Pupils equal, round and reactive to light, extraocular movements intact, sclera anicteric, conjunctiva clear. No lid lag. EARS, NOSE, THROAT: Dry mucus membranes. Ears normal, nares patent, oropharynx clear without exudates NECK: Normal range of motion LUNGS: Breath sounds equal, clear to auscultation bilaterally. No wheezes, and no crackles. No accessory muscle use. HEART: Regular rate and rhythm ABDOMEN: Soft, nontender, not distended, normoactive bowel sounds, no guarding, no rebound, no masses MUSCULOSKELETAL: Normal range of motion at all joints. No CVA tenderness. UPPER EXTREMITIES: 2+ pulses, warm, well-perfused. No cyanosis. No clubbing. No peripheral edema. LOWER EXTREMITIES: 2+ pulses, warm, well-perfused. No calf tenderness. No peripheral edema. PSYCHIATRIC: Cooperative. Good eye contact. Appropriate mood and affect. SKIN: Warm, dry, no rashes or lesions noted, normal capillary refill. CBCD WBC 11.2 K/mm3 (4.0-10.0) H 12/03/17 06:45 RBC 3.44 M/mm3 (3.60-5.2) L 12/03/17 06:45 Hgb 10.7 GM/dL (10.7-15.3) D 12/03/17 06:45 Hct 31.3 % (32.4-45.2) L 12/03/17 06:45 MCV 91.1 fl (80-96) 12/03/17 06:45 MCHC 34.2 g/dl (32.0-36.0) 12/03/17 06:45 RDW 14.1 % (11.6-15.6) 12/03/17 06:45 Plt Count 187 K/MM3 (134-434) 12/03/17 06:45 MPV 10.4 fl (7.5-11.1) 12/03/17 06:45 CMP Sodium 144 mmol/L (136-145) 12/03/17 06:45 Potassium 4.1 mmol/L (3.5-5.1) 12/03/17 06:45 Chloride 108 mmol/L (98-107) H 12/03/17 06:45 Carbon Dioxide 27 mmol/L (21-32) 12/03/17 06:45 Anion Gap 9 (8-16) 12/03/17 06:45 BUN 56 mg/dL (7-18) H 12/03/17 06:45 Creatinine 2.6 mg/dL (0.55-1.02) H 12/03/17 06:45 Creat Clearance w eGFR 22.60 (>60) 11/30/17 06:10 Calcium 8.1 mg/dL (8.5-10.1) L 12/03/17 06:45 Total Bilirubin 0.7 mg/dL (0.2-1.0) 11/30/17 06:10 AST 30 U/L (15-37) 11/30/17 06:10 ALT 17 U/L (12-78) 11/30/17 06:10 Alkaline Phosphatase 74 U/L (45-117) 11/30/17 06:10 Total Protein 6.4 g/dl (6.4-8.2) 11/30/17 06:10 Albumin 3.0 g/dl (3.4-5.0) L 11/30/17 06:10 CT head reviewed Carotid doppler reviewed Assessment: 82 year old female with PMHx of COPD, PAD, lower extremity DVTs (dx 07/2015, on Eliquis), hypothyroidism, HTN, DJD, CKD stage III who presented to the ED after being found on the ground in her own urine, confused for an unknown period of time. During my eval, not able to tell me date. Does know she's at [facility] but not able to state the name of president. Reportedly two days ago she got up off the couch, felt dizzy and fell to the ground. She does not recall if she hit any part of her body. She does not know if she lost consciousness. Was admitted with WBC 17.2, Cr 2.1, CPK 1141, trop 0.07. Head CT showed moderate atrophy and chronic microvascular ischemic disease changes without gross evidence of acute intracranial pathology. Improved mental status and close to baseline. Does not appear consistent with seizure possibly syncopal episode Rhabdomyolysis improved with IVF, respiratory distubrance possibly due to volume overlead CT head, Carotids reviewed as above Monitor blood pressure, normotensive range goal Caution with AC (on Eliquis) if recurrent falls Neurologically stable at this time, no further rec'd
--- NOTE | 2017-12-03 10:23 | PN ---
Progress Note (short form) - Note Progress Note: PULMONARY Still short of breath. Saturating 82% on 50% ventimask. Last Vital Signs Temp Pulse Resp BP Pulse Ox 98.3 F 68 20 162/66 95 12/03/17 05:14 12/03/17 05:14 12/03/17 05:14 12/03/17 05:14 12/02/17 21:00 Gen: tachypneic at rest Heart: RRR Lung: distant breath sounds, no wheezes Abd: soft, nontender Ext: no edema CBC, BMP 12/03/17 06:45 12/03/17 06:45 Active Medications Albuterol Sulfate (Ventolin 0.083% Nebulizer Soln -) 1 amp NEB Q4H PRN PRN Reason: SHORT OF BREATH/WHEEZING Albuterol Sulfate (Ventolin 0.083% Nebulizer Soln -) 1 amp NEB RQID [facility] Last Admin: 12/03/17 08:30 Dose: 1 amp Amlodipine Besylate (Norvasc -) 5 mg PO DAILY [facility] Last Admin: 12/03/17 09:12 Dose: 5 mg Apixaban (Eliquis -) 5 mg PO BID [facility] Last Admin: 12/03/17 09:12 Dose: 5 mg Atorvastatin Calcium (Lipitor -) 10 mg PO HS [facility] Last Admin: 12/02/17 21:11 Dose: 10 mg Calcium Carbonate (Os-Boris 500mg -) 500 mg PO DAILY [facility] Last Admin: 12/03/17 09:12 Dose: 500 mg Cholecalciferol (Vitamin D3 -) 1,000 unit PO DAILY [facility] Last Admin: 12/03/17 09:12 Dose: 1,000 unit Docusate Sodium (Colace -) 100 mg PO BID [facility] Last Admin: 12/03/17 09:13 Dose: 100 mg Ipratropium [place] (Atrovent 0.02% Nebulizer -) 1 amp NEB RQID [facility] Last Admin: 12/03/17 08:30 Dose: 1 amp Levothyroxine Sodium (Synthroid -) 100 mcg PO ACBK [facility] Last Admin: 12/03/17 06:22 Dose: 100 mcg Metoprolol Tartrate (Lopressor -) 25 mg PO BID [facility] Last Admin: 12/03/17 09:12 Dose: 25 mg Ranitidine HCl (Zantac -) 150 mg PO DAILY [facility] Last Admin: 12/03/17 09:12 Dose: 150 mg A/P Rhabdomyolysis Acute on Chronic Renal Failure COPD/Emphysema Acute on Likely Chronic Hypoxic Respiratory Failure HTN Hypothyroidism CHF - O2 to keep SpO2 >90%, change back to NRB - will start short course of steroids - inhaled bronchodilators standing and PRN - IVF - monitor urine output, creatinine - trend CPK - will need to check ambulatory SpO2 on room air to assess for home O2 when ready for discharge - outpt PFTs and follow up Problem List - Problems (1) Rhabdomyolysis Code(s): M62.82 - RHABDOMYOLYSIS Qualifiers: Rhabdomyolysis type: traumatic Encounter type: initial encounter Qualified Code(s): T79.6XXA - Traumatic ischemia of muscle, initial encounter (2) Acute kidney injury Code(s): N17.9 - ACUTE KIDNEY FAILURE, UNSPECIFIED (3) COPD (chronic obstructive pulmonary disease) Code(s): J44.9 - CHRONIC OBSTRUCTIVE PULMONARY DISEASE, UNSPECIFIED Qualifiers: COPD type: unspecified COPD Qualified Code(s): J44.9 - Chronic obstructive pulmonary disease, unspecified (4) Emphysema of lung Code(s): J43.9 - EMPHYSEMA, UNSPECIFIED (5) HTN (hypertension) Code(s): I10 - ESSENTIAL (PRIMARY) HYPERTENSION (6) Hypothyroidism Code(s): E03.9 - HYPOTHYROIDISM, UNSPECIFIED
[2017-12-03] MEDS ORDERED: amLODIPine BESYLATE 5 MG TABLET (FP) PO ONE (11:10)
[2017-12-03] MEDS: methylPREDNISolone NA SUCC 40 MG/1 ML VIAL IVPUSH SCH ×2 (11:32→18:05)
--- NOTE | 2017-12-03 14:24 | PN ---
Progress Note, Physician Chief Complaint: Ms Dale is feeling better but not baseline. Still requiring significant oxygen for shortness of breath and hypoxia. No cp or n/v. - Current Medication List Current Medications: Active Medications Albuterol Sulfate (Ventolin 0.083% Nebulizer Soln -) 1 amp NEB Q4H PRN PRN Reason: SHORT OF BREATH/WHEEZING Albuterol Sulfate (Ventolin 0.083% Nebulizer Soln -) 1 amp NEB RQID [facility] Last Admin: 12/03/17 08:30 Dose: 1 amp Amlodipine Besylate (Norvasc -) 10 mg PO DAILY [facility] Apixaban (Eliquis -) 5 mg PO BID [facility] Last Admin: 12/03/17 09:12 Dose: 5 mg Atorvastatin Calcium (Lipitor -) 10 mg PO HS [facility] Last Admin: 12/02/17 21:11 Dose: 10 mg Calcium Carbonate (Os-Boris 500mg -) 500 mg PO DAILY [facility] Last Admin: 12/03/17 09:12 Dose: 500 mg Cholecalciferol (Vitamin D3 -) 1,000 unit PO DAILY [facility] Last Admin: 12/03/17 09:12 Dose: 1,000 unit Docusate Sodium (Colace -) 100 mg PO BID [facility] Last Admin: 12/03/17 09:13 Dose: 100 mg Ipratropium [place] (Atrovent 0.02% Nebulizer -) 1 amp NEB RQID [facility] Last Admin: 12/03/17 08:30 Dose: 1 amp Levothyroxine Sodium (Synthroid -) 100 mcg PO ACBK [facility] Last Admin: 12/03/17 06:22 Dose: 100 mcg Methylprednisolone Sodium Succinate (Solu-Medrol -) 40 mg IVPUSH Q8H-IV [facility] Last Admin: 12/03/17 11:32 Dose: 40 mg Metoprolol Tartrate (Lopressor -) 25 mg PO BID [facility] Last Admin: 12/03/17 09:12 Dose: 25 mg Ranitidine HCl (Zantac -) 150 mg PO DAILY [facility] Last Admin: 12/03/17 09:12 Dose: 150 mg - Objective Vital Signs: Vital Signs Temperature 36.8 C 12/03/17 05:14 Pulse Rate 68 12/03/17 05:14 Respiratory Rate 20 12/03/17 05:14 Blood Pressure 162/66 12/03/17 05:14 O2 Sat by Pulse Oximetry (%) 95 12/02/17 21:00 Constitutional: Yes: Well Nourished, No Distress, Calm Cardiovascular: Yes: Regular Rate and Rhythm. No: Gallop, Murmur, Rub Respiratory: Yes: Regular, On Venti-Mask, Rhonchi. No: CTA Bilaterally, Rales, Wheezes Gastrointestinal: Yes: Normal Bowel Sounds, Soft. No: Distention, Tenderness Extremities: Yes: WNL Edema: No Labs: CBC, BMP 12/03/17 06:45 12/03/17 06:45 INR, PTT INR 1.26 (0.82-1.09) H 11/28/17 10:38 Problem List - Problems (1) Acute respiratory failure with hypoxia Code(s): J96.01 - ACUTE RESPIRATORY FAILURE WITH HYPOXIA (2) Pleural effusion Code(s): J90 - PLEURAL EFFUSION, NOT ELSEWHERE CLASSIFIED (3) Rhabdomyolysis Code(s): M62.82 - RHABDOMYOLYSIS Qualifiers: Rhabdomyolysis type: traumatic Encounter type: initial encounter Qualified Code(s): T79.6XXA - Traumatic ischemia of muscle, initial encounter (4) Acute kidney injury Code(s): N17.9 - ACUTE KIDNEY FAILURE, UNSPECIFIED (5) COPD (chronic obstructive pulmonary disease) Code(s): J44.9 - CHRONIC OBSTRUCTIVE PULMONARY DISEASE, UNSPECIFIED Qualifiers: COPD type: unspecified COPD Qualified Code(s): J44.9 - Chronic obstructive pulmonary disease, unspecified (6) HTN (hypertension) Code(s): I10 - ESSENTIAL (PRIMARY) HYPERTENSION (7) Hypothyroidism Code(s): E03.9 - HYPOTHYROIDISM, UNSPECIFIED (8) Fall Code(s): W19.XXXA - UNSPECIFIED FALL, INITIAL ENCOUNTER Qualifiers: Encounter type: initial encounter Qualified Code(s): W19.XXXA - Unspecified fall, initial encounter (9) History of DVT (deep vein thrombosis) Code(s): Z86.718 - PERSONAL HISTORY OF OTHER VENOUS THROMBOSIS AND EMBOLISM Assessment/Plan (1) Rhabdomyolysis Assessment/Plan: -resolved Code(s): M62.82 - RHABDOMYOLYSIS Qualifiers: Rhabdomyolysis type: traumatic Encounter type: initial encounter Qualified Code(s): T79.6XXA - Traumatic ischemia of muscle, initial encounter (2) Acute kidney injury Assessment/Plan: -stable after two doses IV lasix -case d/w Dr Rascon -place urology consult for hydronephrosis Code(s): N17.9 - ACUTE KIDNEY FAILURE, UNSPECIFIED (3) COPD (chronic obstructive pulmonary disease) Assessment/Plan: -pulmonary note reviewed -trial of solumedrol Code(s): J44.9 - CHRONIC OBSTRUCTIVE PULMONARY DISEASE, UNSPECIFIED Qualifiers: COPD type: unspecified COPD Qualified Code(s): J44.9 - Chronic obstructive pulmonary disease, unspecified (4) HTN (hypertension) Assessment/Plan: -remains elevated -continue toprol xl -increase amlodipine today Code(s): I10 - ESSENTIAL (PRIMARY) HYPERTENSION (5) Hypothyroidism Assessment/Plan: -continue synthroid Code(s): E03.9 - HYPOTHYROIDISM, UNSPECIFIED (6) Fall Assessment/Plan: -PT consulted and following -may benefit from SNF placement when medically stable Code(s): W19.XXXA - UNSPECIFIED FALL, INITIAL ENCOUNTER Qualifiers: Encounter type: initial encounter Qualified Code(s): W19.XXXA - Unspecified fall, initial encounter (7) History of DVT (deep vein thrombosis) Assessment/Plan: -continue eliquis Code(s): Z86.718 - PERSONAL HISTORY OF OTHER VENOUS THROMBOSIS AND EMBOLISM (8) Acute hypoxic respiratory failure -improved but still requiring significant amount of oxygen support -chest x-ray improved -appreciate pulmonary assistance -trial of steroids (9) Pleural effusions -repeat lasix today
--- NOTE | 2017-12-03 15:21 | PN ---
Progress Note (short form) - Note Progress Note: Renal follow up for MARCIAL on CKD Pt seen and examined at the bedside on NRB face mask O2 no acute complaints denies any sob while on o2 no CP, Abd pain, N/V/D making urine Vital Signs Temperature 98.3 F 12/03/17 05:14 Pulse Rate 68 12/03/17 05:14 Respiratory Rate 20 12/03/17 05:14 Blood Pressure 162/66 12/03/17 05:14 O2 Sat by Pulse Oximetry (%) 95 12/02/17 21:00 Intake & Output 11/30/17 12/01/17 12/02/17 12/03/17 23:59 23:59 23:59 23:59 Intake Total 2049 310 210 50 Balance 2049 310 210 50 NAD awake and alert RRR, No M/R Dec BS at lung bases, no rales, wheeze no bladder distension No LE edema CBC, BMP 12/03/17 06:45 12/03/17 06:45 Current Medications Albuterol Sulfate (Ventolin 0.083% Nebulizer Soln -) 1 amp NEB Q4H PRN PRN Reason: SHORT OF BREATH/WHEEZING Albuterol Sulfate (Ventolin 0.083% Nebulizer Soln -) 1 amp NEB RQID [facility] Last Admin: 12/03/17 12:40 Dose: 1 amp Amlodipine Besylate (Norvasc -) 10 mg PO DAILY [facility] Apixaban (Eliquis -) 5 mg PO BID [facility] Last Admin: 12/03/17 09:12 Dose: 5 mg Atorvastatin Calcium (Lipitor -) 10 mg PO HS [facility] Last Admin: 12/02/17 21:11 Dose: 10 mg Calcium Carbonate (Os-Boris 500mg -) 500 mg PO DAILY [facility] Last Admin: 12/03/17 09:12 Dose: 500 mg Cholecalciferol (Vitamin D3 -) 1,000 unit PO DAILY [facility] Last Admin: 12/03/17 09:12 Dose: 1,000 unit Docusate Sodium (Colace -) 100 mg PO BID [facility] Last Admin: 12/03/17 09:13 Dose: 100 mg Ipratropium [place] (Atrovent 0.02% Nebulizer -) 1 amp NEB RQID [facility] Last Admin: 12/03/17 12:40 Dose: 1 amp Levothyroxine Sodium (Synthroid -) 100 mcg PO ACBK [facility] Last Admin: 12/03/17 06:22 Dose: 100 mcg Methylprednisolone Sodium Succinate (Solu-Medrol -) 40 mg IVPUSH Q8H-IV [facility] Last Admin: 12/03/17 11:32 Dose: 40 mg Metoprolol Tartrate (Lopressor -) 25 mg PO BID [facility] Last Admin: 12/03/17 09:12 Dose: 25 mg Ranitidine HCl (Zantac -) 150 mg PO DAILY [facility] Last Admin: 12/03/17 09:12 Dose: 150 mg 82 year old woman with PMhx of COPD, PAD, LE DVTs (dx 07/2015, on Eliquis), hypothyroidism (on synthroid), HTN, DJD, and CKD stage III presented s/p fall at home and prolonged time on the ground with Cr of 2.1 #MARCIAL on CKD #Rhabdonyolyiss #Hypertension #SOB/Hypoxia Renal function stable in the last 24 hours but no improvement as of yet Urine studies as pending at this time given Right hydronephrosis seen on US will get NM renal scan and request urology evalulation Continue PRN Lasix as needed for SOB no indication for [employer] at this time Dose all meds for CrCL < 30 Trend Ca and Phos Bora Rascon DO
[2017-12-03 16:10] LABS: URINE CREATININE 76.3 mg/dL (20-320)
--- NOTE | 2017-12-03 19:03 | CON.GU ---
Consult - History of Present Illness History of Present Illness: 82 yo female admitted s/p fall, has Stage III CKD, renal sono shows mild right hydronephrosis. Pt denies any flank pain. No voiding c/o. NM renal scan ordered - Past Medical History IN [employer]: Yes: Other (tremors) Cardio/Vascular: Yes: Deep Vein Thrombosis, HTN Renal/: Yes: Renal Inusuff (suspect underlying CKD stage III w/Scr of 1.2mg/dL ) Musculoskeletal: Yes: Other (compression fracture) Endocrine: Yes: Hypothyroidism - Past Surgical History Past Surgical History: Yes: Cholecystectomy (Lap), (x2) - Alcohol/Substance Use Hx Alcohol Use: No History of Substance Use: reports: None - Smoking History Smoking history: Former smoker Have you smoked in the past 12 months: No Aproximately how many cigarettes per day: 0 If you are a former smoker, when did you quit?: 2 years ago - Social History Usual Living Arrangement: Alone ADL: Independent 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 History of Recent Travel: No Home Medications - Allergies Allergies/Adverse Reactions: Allergies Allergy/AdvReac Type Severity Reaction Status Date / Time lansoprazole [From Prevacid] Allergy Verified 11/28/17 09:39 Penicillins Allergy Hives Verified 11/28/17 09:39 prednisone Allergy Hives Verified 11/28/17 09:39 - Home Medications Home Medications: Ambulatory Orders Amlodipine Besylate [Norvasc -] 5 mg PO DAILY tablet 06/22/15 Albuterol 2.5/Ipratropium 0.5 [Duoneb -] 1 amp NEB QIDR amp 07/17/15 Metoprolol Tartrate [Lopressor -] 25 mg PO BID tablet 07/17/15 Calcium Carbonate [Calcium] 500 mg PO DAILY 03/10/16 Cholecalciferol (Vitamin D3) [Vitamin D3] 1,000 unit PO DAILY 03/10/16 Levothyroxine [Synthroid -] 100 mcg PO DAILY 03/10/16 Pravastatin Sodium 20 mg PO HS #30 tablet 03/14/16 Apixaban [Eliquis] 5 mg PO BID 08/08/16 Docusate Sodium [Colace -] 100 mg PO BID #30 cap 03/02/17 Lisinopril [Prinivil] 20 mg PO DAILY tablet 03/02/17 Polyethylene Glycol 3350 [Miralax 119 gm Btl -] 17 gm PO BID bottle 03/02/17 Ranitidine [Zantac -] 150 mg PO BID tablet 03/02/17 Family Disease History - Family Disease History Family Disease History: Other: Father ( 52: sudden), Mother (: 76: unclear causes), Brother (5, unclear causes), Sister (2, unclear causes), Son (1, healthy), Daughter (1, healthy) Physical Exam- Vital Signs: Vital Signs Temperature 97.9 F 12/03/17 14:00 Pulse Rate 77 12/03/17 14:00 Respiratory Rate 20 12/03/17 14:00 Blood Pressure 156/70 12/03/17 14:00 O2 Sat by Pulse Oximetry (%) 94 L 12/03/17 09:00 Labs: CBC, BMP 12/03/17 06:45 12/03/17 06:45 Imaging - Results Ultrasound: Report Reviewed Problem List - Problems (1) Hydronephrosis, right Assessment/Plan: agree with renal scan Code(s): N13.30 - UNSPECIFIED HYDRONEPHROSIS
[2017-12-03] MEDS: ATORVASTATIN CA 10 MG TABLET (FP) PO SCH (21:37)
[2017-12-04] MEDS: methylPREDNISolone NA SUCC 40 MG/1 ML VIAL IVPUSH SCH ×3 (00:59→17:10)
[2017-12-04] MEDS: LEVOTHYROXINE NA 100 MCG TABLET (FP) PO SCH (06:38)
[2017-12-04 07:29] LABS: ANION GAP 12 (8-16); BLOOD UREA NITROGEN 68 mg/dL (7-18); CHLORIDE 105 mmol/L (98-107); CO2 25 mmol/L (21-32); GLUCOSE,RANDOM 151 mg/dL (74-106); MAGNESIUM 2.5 mg/dL (1.8-2.4); SODIUM 142 mmol/L (136-145)
[2017-12-04 07:30] LABS: BASO % 0.1 % (0-2.0); CREATININE 2.7 mg/dL (0.55-1.02); HEMATOCRIT 31.4 % (32.4-45.2); HEMOGLOBIN 10.7 GM/dL (10.7-15.3); LYMPH % 4.8 % (8-40); MCHC 34.1 g/dl (32.0-36.0); MEAN PLT VOLUME 10.4 fl (7.5-11.1); MONO % 1.9 % (3.8-10.2); NEUT % 93.2 % (42.8-82.8); PHOSPHOROUS 4.9 mg/dL (2.5-4.9); PLATELET COUNT 227 K/MM3 (134-434); RBC 3.45 M/mm3 (3.60-5.2); RDW 13.7 % (11.6-15.6); WHITE BLOOD COUNT 10.6 K/mm3 (4.0-10.0)
[2017-12-04] MEDS: IPRATROPIUM BR 0.02% 0.5 MG/2.5 ML VIAL.NEB. NEB SCH ×4 (07:45→20:38)
[2017-12-04] MEDS: ALBUTEROL SO4 0.083% IH SOL 2.5 MG/3 ML VIAL.NEB. NEB SCH ×4 (07:45→20:38)
[2017-12-04] MEDS: METOPROLOL TARTRATE 25 MG TABLET (FP) PO SCH ×2 (09:25→22:53)
[2017-12-04] MEDS: amLODIPine BESYLATE 5 MG TABLET (FP) PO SCH (09:25)
[2017-12-04] MEDS: RANITIDINE HCL 150 MG TABLET (FP) PO SCH (09:25)
[2017-12-04] MEDS: CHOLECALCIFEROL (VITAMIN D3) 1,000 UNIT TABLET (FP) PO SCH (09:25)
[2017-12-04] MEDS: DOCUSATE SODIUM 100 MG CAPSULE (FP) PO SCH ×2 (09:25→22:53)
[2017-12-04] MEDS: APIXABAN 5 MG TABLET PO SCH ×2 (09:25→22:53)
[2017-12-04] MEDS: CALCIUM (OYSTER SHELL) 500 MG TABLET (FP) PO SCH (09:26)
--- NOTE | 2017-12-04 11:22 | PN ---
Progress Note, Physician History of Present Illness: PULMONARY ALERT,DYSPNEIC ON 100%NRBM - Current Medication List Current Medications: Active Medications Albuterol Sulfate (Ventolin 0.083% Nebulizer Soln -) 1 amp NEB Q4H PRN PRN Reason: SHORT OF BREATH/WHEEZING Albuterol Sulfate (Ventolin 0.083% Nebulizer Soln -) 1 amp NEB RQID [facility] Last Admin: 12/04/17 07:45 Dose: 1 amp Amlodipine Besylate (Norvasc -) 10 mg PO DAILY [facility] Last Admin: 12/04/17 09:25 Dose: 10 mg Apixaban (Eliquis -) 5 mg PO BID [facility] Last Admin: 12/04/17 09:25 Dose: 5 mg Atorvastatin Calcium (Lipitor -) 10 mg PO HS [facility] Last Admin: 12/03/17 21:37 Dose: 10 mg Calcium Carbonate (Os-Boris 500mg -) 500 mg PO DAILY [facility] Last Admin: 12/04/17 09:26 Dose: 500 mg Cholecalciferol (Vitamin D3 -) 1,000 unit PO DAILY [facility] Last Admin: 12/04/17 09:25 Dose: 1,000 unit Docusate Sodium (Colace -) 100 mg PO BID [facility] Last Admin: 12/04/17 09:25 Dose: 100 mg Ipratropium [place] (Atrovent 0.02% Nebulizer -) 1 amp NEB RQID [facility] Last Admin: 12/04/17 07:45 Dose: 1 amp Levothyroxine Sodium (Synthroid -) 100 mcg PO ACBK [facility] Last Admin: 12/04/17 06:38 Dose: 100 mcg Methylprednisolone Sodium Succinate (Solu-Medrol -) 40 mg IVPUSH Q8H-IV [facility] Last Admin: 12/04/17 09:26 Dose: 40 mg Metoprolol Tartrate (Lopressor -) 25 mg PO BID [facility] Last Admin: 12/04/17 09:25 Dose: 25 mg Ranitidine HCl (Zantac -) 150 mg PO DAILY [facility] Last Admin: 12/04/17 09:25 Dose: 150 mg - Objective Vital Signs: Vital Signs Temperature 97.7 F 12/04/17 09:00 Pulse Rate 109 H 12/04/17 09:00 Respiratory Rate 20 12/04/17 09:00 Blood Pressure 157/81 12/04/17 09:00 O2 Sat by Pulse Oximetry (%) 95 12/04/17 09:00 Constitutional: Yes: Well Nourished, Mild Distress Eyes: Yes: WNL HENT: Yes: WNL Neck: Yes: WNL Cardiovascular: Yes: Pulse Irregular, S1, S2 Respiratory: Yes: Rales, Rhonchi (SCATTERED THOMAS RALES AND RHONCHI) Gastrointestinal: Yes: Normal Bowel Sounds, Soft Extremities: Yes: WNL Edema: No Labs: CBC, BMP 12/04/17 06:30 12/04/17 06:30 INR, PTT INR 1.26 (0.82-1.09) H 11/28/17 10:38 Assessment/Plan Problem List - Problems (1) Rhabdomyolysis Code(s): M62.82 - RHABDOMYOLYSIS (2) Acute kidney injury Code(s): N17.9 - ACUTE KIDNEY FAILURE, UNSPECIFIED (3) COPD (chronic obstructive pulmonary disease) Code(s): J44.9 - CHRONIC OBSTRUCTIVE PULMONARY DISEASE, UNSPECIFIED Qualifiers: COPD type: unspecified COPD Qualified Code(s): J44.9 - Chronic obstructive pulmonary disease, unspecified (4) Emphysema of lung Code(s): J43.9 - EMPHYSEMA, UNSPECIFIED (5) HTN (hypertension) Code(s): I10 - ESSENTIAL (PRIMARY) HYPERTENSION (6) Hypothyroidism Code(s): E03.9 - HYPOTHYROIDISM, UNSPECIFIED Assessment/Plan Rhabdomyolysis improving Acute on Chronic Renal Failure COPD/Emphysema Likely Chronic Hypoxic Respiratory Failure HTN Hypothyroidism CHF - O2 to keep SpO2 >90% - inhaled bronchodilators standing and PRN - IVF as per renal - solumedrol - monitor urine output, creatinine - trend CPK - will need to check ambulatory SpO2 on room air to assess for home O2 when ready for discharge - pfts outpatient DR KIRK
--- NOTE | 2017-12-04 11:51 | PN ---
Progress Note, Physician Chief Complaint: Ms Dale says she is feeling a little better but frustrated that she is not back to normal. Still with shortness of breath, denies cp and n/v. - Current Medication List Current Medications: Active Medications Albuterol Sulfate (Ventolin 0.083% Nebulizer Soln -) 1 amp NEB Q4H PRN PRN Reason: SHORT OF BREATH/WHEEZING Albuterol Sulfate (Ventolin 0.083% Nebulizer Soln -) 1 amp NEB RQID [facility] Last Admin: 12/04/17 07:45 Dose: 1 amp Amlodipine Besylate (Norvasc -) 10 mg PO DAILY [facility] Last Admin: 12/04/17 09:25 Dose: 10 mg Apixaban (Eliquis -) 5 mg PO BID [facility] Last Admin: 12/04/17 09:25 Dose: 5 mg Atorvastatin Calcium (Lipitor -) 10 mg PO HS [facility] Last Admin: 12/03/17 21:37 Dose: 10 mg Calcium Carbonate (Os-Boris 500mg -) 500 mg PO DAILY [facility] Last Admin: 12/04/17 09:26 Dose: 500 mg Cholecalciferol (Vitamin D3 -) 1,000 unit PO DAILY [facility] Last Admin: 12/04/17 09:25 Dose: 1,000 unit Docusate Sodium (Colace -) 100 mg PO BID [facility] Last Admin: 12/04/17 09:25 Dose: 100 mg Ipratropium [place] (Atrovent 0.02% Nebulizer -) 1 amp NEB RQID [facility] Last Admin: 12/04/17 07:45 Dose: 1 amp Levothyroxine Sodium (Synthroid -) 100 mcg PO ACBK [facility] Last Admin: 12/04/17 06:38 Dose: 100 mcg Methylprednisolone Sodium Succinate (Solu-Medrol -) 40 mg IVPUSH Q8H-IV [facility] Last Admin: 12/04/17 09:26 Dose: 40 mg Metoprolol Tartrate (Lopressor -) 25 mg PO BID [facility] Last Admin: 12/04/17 09:25 Dose: 25 mg Ranitidine HCl (Zantac -) 150 mg PO DAILY [facility] Last Admin: 12/04/17 09:25 Dose: 150 mg - Objective Vital Signs: Vital Signs Temperature 36.5 C 12/04/17 09:00 Pulse Rate 109 H 12/04/17 09:00 Respiratory Rate 20 05/04/18 09:00 Blood Pressure 157/81 12/04/17 09:00 O2 Sat by Pulse Oximetry (%) 95 12/04/17 09:00 Constitutional: Yes: Well Nourished, No Distress, Calm Cardiovascular: Yes: Regular Rate and Rhythm. No: Gallop, Murmur, Rub Respiratory: Yes: Regular, Diminished, On Venti-Mask, Rhonchi, Wheezes. No: CTA Bilaterally, Rales Gastrointestinal: Yes: Normal Bowel Sounds, Soft. No: Distention, Tenderness Extremities: Yes: WNL Edema: No Labs: CBC, BMP 12/04/17 06:30 12/04/17 06:30 INR, PTT INR 1.26 (0.82-1.09) H 11/28/17 10:38 Problem List - Problems (1) Acute respiratory failure with hypoxia Code(s): J96.01 - ACUTE RESPIRATORY FAILURE WITH HYPOXIA (2) Pleural effusion Code(s): J90 - PLEURAL EFFUSION, NOT ELSEWHERE CLASSIFIED (3) Rhabdomyolysis Code(s): M62.82 - RHABDOMYOLYSIS Qualifiers: Rhabdomyolysis type: traumatic Encounter type: initial encounter Qualified Code(s): T79.6XXA - Traumatic ischemia of muscle, initial encounter (4) Acute kidney injury Code(s): N17.9 - ACUTE KIDNEY FAILURE, UNSPECIFIED (5) COPD (chronic obstructive pulmonary disease) Code(s): J44.9 - CHRONIC OBSTRUCTIVE PULMONARY DISEASE, UNSPECIFIED Qualifiers: COPD type: unspecified COPD Qualified Code(s): J44.9 - Chronic obstructive pulmonary disease, unspecified (6) HTN (hypertension) Code(s): I10 - ESSENTIAL (PRIMARY) HYPERTENSION (7) Hypothyroidism Code(s): E03.9 - HYPOTHYROIDISM, UNSPECIFIED (8) Fall Code(s): W19.XXXA - UNSPECIFIED FALL, INITIAL ENCOUNTER Qualifiers: Encounter type: initial encounter Qualified Code(s): W19.XXXA - Unspecified fall, initial encounter (9) History of DVT (deep vein thrombosis) Code(s): Z86.718 - PERSONAL HISTORY OF OTHER VENOUS THROMBOSIS AND EMBOLISM Assessment/Plan (1) Rhabdomyolysis Assessment/Plan: -resolved Code(s): M62.82 - RHABDOMYOLYSIS Qualifiers: Rhabdomyolysis type: traumatic Encounter type: initial encounter Qualified Code(s): T79.6XXA - Traumatic ischemia of muscle, initial encounter (2) Acute kidney injury Assessment/Plan: -case d/w Dr Rascon -worsening, patient looks dry today -will very gently hydrate, give 500mL over 12 hours -recheck in am -low threshold to stop IVF Code(s): N17.9 - ACUTE KIDNEY FAILURE, UNSPECIFIED (3) COPD (chronic obstructive pulmonary disease) Assessment/Plan: -case d/w Dr Hayward -SOB/hypoxia now seems more COPD exacerbation -continue solumedrol -continue duonebs Code(s): J44.9 - CHRONIC OBSTRUCTIVE PULMONARY DISEASE, UNSPECIFIED Qualifiers: COPD type: unspecified COPD Qualified Code(s): J44.9 - Chronic obstructive pulmonary disease, unspecified (4) HTN (hypertension) Assessment/Plan: -continue toprol xl and amlodipine -amlodipine increased this admission -monitor, may need further adjustment Code(s): I10 - ESSENTIAL (PRIMARY) HYPERTENSION (5) Hypothyroidism Assessment/Plan: -continue synthroid Code(s): E03.9 - HYPOTHYROIDISM, UNSPECIFIED (6) Fall Assessment/Plan: -PT consulted and following -may benefit from SNF placement when medically stable Code(s): W19.XXXA - UNSPECIFIED FALL, INITIAL ENCOUNTER Qualifiers: Encounter type: initial encounter Qualified Code(s): W19.XXXA - Unspecified fall, initial encounter (7) History of DVT (deep vein thrombosis) Assessment/Plan: -continue eliquis Code(s): Z86.718 - PERSONAL HISTORY OF OTHER VENOUS THROMBOSIS AND EMBOLISM (8) Acute hypoxic respiratory failure -improved but still requiring high amounts of oxygen -as above (9) Pleural effusions -CXR much improved -appears dry -as above
[2017-12-04] MEDS ORDERED: SODIUM CHLORIDE 1,000 ML IV SCH (14:15)
--- NOTE | 2017-12-04 14:15 | PN ---
Progress Note (short form) - Note Progress Note: Renal follow up for MARCIAL on CKD Pt seen and examined at the bedside awake and alert on NRB face mask feels comfortable no CP, Abd pain, N/V Vital Signs Temperature 97.7 F 12/04/17 09:00 Pulse Rate 109 H 12/04/17 09:00 Respiratory Rate 20 12/04/17 09:00 Blood Pressure 157/81 12/04/17 09:00 O2 Sat by Pulse Oximetry (%) 95 12/04/17 09:00 Intake & Output 12/01/17 12/02/17 12/03/17 12/04/17 23:59 23:59 23:59 23:59 Intake Total 310 210 360 160 Balance 310 210 360 160 NAD awake and alert RRR, No M/R Dec BS at lung bases, no rales, wheeze no bladder distension No LE edema CBC, BMP 12/04/17 06:30 12/04/17 06:30 Current Medications Albuterol Sulfate (Ventolin 0.083% Nebulizer Soln -) 1 amp NEB Q4H PRN PRN Reason: SHORT OF BREATH/WHEEZING Albuterol Sulfate (Ventolin 0.083% Nebulizer Soln -) 1 amp NEB RQID [facility] Last Admin: 12/04/17 12:12 Dose: 1 amp Amlodipine Besylate (Norvasc -) 10 mg PO DAILY [facility] Last Admin: 12/04/17 09:25 Dose: 10 mg Apixaban (Eliquis -) 5 mg PO BID [facility] Last Admin: 12/04/17 09:25 Dose: 5 mg Atorvastatin Calcium (Lipitor -) 10 mg PO HS [facility] Last Admin: 12/03/17 21:37 Dose: 10 mg Calcium Carbonate (Os-Boris 500mg -) 500 mg PO DAILY [facility] Last Admin: 12/04/17 09:26 Dose: 500 mg Cholecalciferol (Vitamin D3 -) 1,000 unit PO DAILY [facility] Last Admin: 12/04/17 09:25 Dose: 1,000 unit Docusate Sodium (Colace -) 100 mg PO BID [facility] Last Admin: 12/04/17 09:25 Dose: 100 mg Sodium Chloride (Normal Saline -) 1,000 mls @ 42 mls/hr IV ASDIR [facility] Stop: 12/05/17 02:14 Ipratropium [place] (Atrovent 0.02% Nebulizer -) 1 amp NEB RQID [facility] Last Admin: 12/04/17 12:11 Dose: 1 amp Levothyroxine Sodium (Synthroid -) 100 mcg PO ACBK [facility] Last Admin: 12/04/17 06:38 Dose: 100 mcg Methylprednisolone Sodium Succinate (Solu-Medrol -) 40 mg IVPUSH Q8H-IV [facility] Last Admin: 12/04/17 09:26 Dose: 40 mg Metoprolol Tartrate (Lopressor -) 25 mg PO BID [facility] Last Admin: 12/04/17 09:25 Dose: 25 mg Ranitidine HCl (Zantac -) 150 mg PO DAILY [facility] Last Admin: 12/04/17 09:25 Dose: 150 mg 82 year old woman with PMhx of COPD, PAD, LE DVTs (dx 07/2015, on Eliquis), hypothyroidism (on synthroid), HTN, DJD, and CKD stage III presented s/p fall at home and prolonged time on the ground with Cr of 2.1 #MARCIAL on CKD #Rhabdonyolyiss #Hypertension #SOB/Hypoxia/COPD Renal function essently unchanged over the last 24 hours w/o diuretics however not improved Renal scan is pending, Urology eval noted will give trial of gentle IVF: NS at 42cc per hour x 12 hours hold further diuretics at this time Trend BUN/Cr Continue steroids as per Pulmonary Bora Rascon DO
[2017-12-04] MEDS: ATORVASTATIN CA 10 MG TABLET (FP) PO SCH (22:53)
[2017-12-05] MEDS: methylPREDNISolone NA SUCC 40 MG/1 ML VIAL IVPUSH SCH ×3 (02:11→17:22)
[2017-12-05] MEDS: LEVOTHYROXINE NA 100 MCG TABLET (FP) PO SCH (06:19)
[2017-12-05 07:43] LABS: BASO % 0.1 % (0-2.0); HEMATOCRIT 32.1 % (32.4-45.2); HEMOGLOBIN 10.8 GM/dL (10.7-15.3); LYMPH % 2.6 % (8-40); MCH 30.7 pg (25.7-33.7); MCHC 33.6 g/dl (32.0-36.0); MEAN CELL VOLUME 91.2 fl (80-96); MEAN PLT VOLUME 10.1 fl (7.5-11.1); MONO % 5.5 % (3.8-10.2); NEUT % 91.8 % (42.8-82.8); PLATELET COUNT 291 K/MM3 (134-434); RBC 3.52 M/mm3 (3.60-5.2); RDW 13.9 % (11.6-15.6); WHITE BLOOD COUNT 15.1 K/mm3 (4.0-10.0)
[2017-12-05 07:44] LABS: ANION GAP 11 (8-16); BLOOD UREA NITROGEN 81 mg/dL (7-18); CALCIUM 8.7 mg/dL (8.5-10.1); CHLORIDE 107 mmol/L (98-107); CO2 26 mmol/L (21-32); GLUCOSE,RANDOM 146 mg/dL (74-106); MAGNESIUM 2.4 mg/dL (1.8-2.4); POTASSIUM 4.1 mmol/L (3.5-5.1); SODIUM 144 mmol/L (136-145)
[2017-12-05 07:46] LABS: CREATININE 2.8 mg/dL (0.55-1.02); PHOSPHOROUS 4.3 mg/dL (2.5-4.9)
[2017-12-05] MEDS: ALBUTEROL SO4 0.083% IH SOL 2.5 MG/3 ML VIAL.NEB. NEB SCH ×4 (08:30→20:30)
[2017-12-05] MEDS: IPRATROPIUM BR 0.02% 0.5 MG/2.5 ML VIAL.NEB. NEB SCH ×4 (08:30→20:30)
[2017-12-05] MEDS: CHOLECALCIFEROL (VITAMIN D3) 1,000 UNIT TABLET (FP) PO SCH (09:20)
[2017-12-05] MEDS: METOPROLOL TARTRATE 25 MG TABLET (FP) PO SCH ×2 (09:20→21:46)
[2017-12-05] MEDS: DOCUSATE SODIUM 100 MG CAPSULE (FP) PO SCH ×2 (09:20→21:38)
[2017-12-05] MEDS: APIXABAN 5 MG TABLET PO SCH ×2 (09:20→21:46)
[2017-12-05] MEDS: CALCIUM (OYSTER SHELL) 500 MG TABLET (FP) PO SCH (09:20)
[2017-12-05] MEDS: RANITIDINE HCL 150 MG TABLET (FP) PO SCH (09:20)
[2017-12-05] MEDS: amLODIPine BESYLATE 5 MG TABLET (FP) PO SCH (09:20)
--- NOTE | 2017-12-05 10:16 | PN ---
Progress Note, Physician History of Present Illness: PULMONARY ALERT,LES DYSPNEIC,LESS CONGESTED ON 100% NRBM - Current Medication List Current Medications: Active Medications Albuterol Sulfate (Ventolin 0.083% Nebulizer Soln -) 1 amp NEB Q4H PRN PRN Reason: SHORT OF BREATH/WHEEZING Albuterol Sulfate (Ventolin 0.083% Nebulizer Soln -) 1 amp NEB RQID [facility] Last Admin: 12/05/17 08:30 Dose: 1 amp Amlodipine Besylate (Norvasc -) 10 mg PO DAILY [facility] Last Admin: 12/05/17 09:20 Dose: 10 mg Apixaban (Eliquis -) 5 mg PO BID [facility] Last Admin: 12/05/17 09:20 Dose: 5 mg Atorvastatin Calcium (Lipitor -) 10 mg PO HS [facility] Last Admin: 12/04/17 22:53 Dose: 10 mg Calcium Carbonate (Os-Boris 500mg -) 500 mg PO DAILY [facility] Last Admin: 12/05/17 09:20 Dose: 500 mg Cholecalciferol (Vitamin D3 -) 1,000 unit PO DAILY [facility] Last Admin: 12/05/17 09:20 Dose: 1,000 unit Docusate Sodium (Colace -) 100 mg PO BID [facility] Last Admin: 12/05/17 09:20 Dose: 100 mg Ipratropium [place] (Atrovent 0.02% Nebulizer -) 1 amp NEB RQID [facility] Last Admin: 12/05/17 08:30 Dose: 1 amp Levothyroxine Sodium (Synthroid -) 100 mcg PO ACBK [facility] Last Admin: 12/05/17 06:19 Dose: 100 mcg Methylprednisolone Sodium Succinate (Solu-Medrol -) 40 mg IVPUSH Q8H-IV [facility] Last Admin: 12/05/17 09:20 Dose: 40 mg Metoprolol Tartrate (Lopressor -) 25 mg PO BID [facility] Last Admin: 12/05/17 09:20 Dose: 25 mg Ranitidine HCl (Zantac -) 150 mg PO DAILY [facility] Last Admin: 12/05/17 09:20 Dose: 150 mg - Objective Vital Signs: Vital Signs Temperature 97.4 F L 12/05/17 08:35 Pulse Rate 74 12/05/17 08:35 Respiratory Rate 22 12/05/17 08:35 Blood Pressure 182/77 12/05/17 08:35 O2 Sat by Pulse Oximetry (%) 89 L 12/05/17 08:35 Constitutional: Yes: Well Nourished, Calm Eyes: Yes: WNL HENT: Yes: WNL Neck: Yes: WNL Cardiovascular: Yes: Regular Rate and Rhythm, S1, S2 Respiratory: Yes: Rales, Rhonchi (SCTEERED THOMAS RHONCHI,RALES) Gastrointestinal: Yes: Normal Bowel Sounds, Soft Extremities: Yes: WNL Edema: No Labs: CBC, BMP 12/05/17 05:00 12/05/17 05:00 INR, PTT INR 1.26 (0.82-1.09) H 11/28/17 10:38 Assessment/Plan Problem List - Problems (1) Rhabdomyolysis Code(s): M62.82 - RHABDOMYOLYSIS (2) Acute kidney injury Code(s): N17.9 - ACUTE KIDNEY FAILURE, UNSPECIFIED (3) COPD (chronic obstructive pulmonary disease) Code(s): J44.9 - CHRONIC OBSTRUCTIVE PULMONARY DISEASE, UNSPECIFIED Qualifiers: COPD type: unspecified COPD Qualified Code(s): J44.9 - Chronic obstructive pulmonary disease, unspecified (4) Emphysema of lung Code(s): J43.9 - EMPHYSEMA, UNSPECIFIED (5) HTN (hypertension) Code(s): I10 - ESSENTIAL (PRIMARY) HYPERTENSION (6) Hypothyroidism Code(s): E03.9 - HYPOTHYROIDISM, UNSPECIFIED Assessment/Plan Rhabdomyolysis improving Acute on chronic hypoxemic respiratory failure Acute on Chronic Renal Failure COPD/Emphysema HTN Hypothyroidism CHF - O2 to keep SpO2 >90% - inhaled bronchodilators standing and PRN - IVF as per renal - solumedrol - monitor urine output, creatinine - trend CPK - pfts outpatient DR KIRK
--- NOTE | 2017-12-05 10:32 | PN ---
Progress Note, Physician History of Present Illness: 82 year old female with PMHx of COPD, PAD, lower extremity DVTs (dx 07/2015, on Eliquis), hypothyroidism, HTN, DJD, CKD stage III who presented to the ED after being found on the ground in her own urine, confused for an unknown period of time w/u shows MARCIAL worsening renal functions - Current Medication List Current Medications: Active Medications Albuterol Sulfate (Ventolin 0.083% Nebulizer Soln -) 1 amp NEB Q4H PRN PRN Reason: SHORT OF BREATH/WHEEZING Albuterol Sulfate (Ventolin 0.083% Nebulizer Soln -) 1 amp NEB RQID [facility] Last Admin: 12/05/17 08:30 Dose: 1 amp Amlodipine Besylate (Norvasc -) 10 mg PO DAILY [facility] Last Admin: 12/05/17 09:20 Dose: 10 mg Apixaban (Eliquis -) 5 mg PO BID [facility] Last Admin: 12/05/17 09:20 Dose: 5 mg Atorvastatin Calcium (Lipitor -) 10 mg PO HS [facility] Last Admin: 12/04/17 22:53 Dose: 10 mg Calcium Carbonate (Os-Boris 500mg -) 500 mg PO DAILY [facility] Last Admin: 12/05/17 09:20 Dose: 500 mg Cholecalciferol (Vitamin D3 -) 1,000 unit PO DAILY [facility] Last Admin: 12/05/17 09:20 Dose: 1,000 unit Docusate Sodium (Colace -) 100 mg PO BID [facility] Last Admin: 12/05/17 09:20 Dose: 100 mg Ipratropium [place] (Atrovent 0.02% Nebulizer -) 1 amp NEB RQID [facility] Last Admin: 12/05/17 08:30 Dose: 1 amp Levothyroxine Sodium (Synthroid -) 100 mcg PO ACBK [facility] Last Admin: 12/05/17 06:19 Dose: 100 mcg Methylprednisolone Sodium Succinate (Solu-Medrol -) 40 mg IVPUSH Q8H-IV [facility] Last Admin: 12/05/17 09:20 Dose: 40 mg Metoprolol Tartrate (Lopressor -) 25 mg PO BID [facility] Last Admin: 12/05/17 09:20 Dose: 25 mg Ranitidine HCl (Zantac -) 150 mg PO DAILY [facility] Last Admin: 12/05/17 09:20 Dose: 150 mg - Objective Vital Signs: Vital Signs Temperature 97.4 F L 12/05/17 08:35 Pulse Rate 74 12/05/17 08:35 Respiratory Rate 22 12/05/17 08:35 Blood Pressure 182/77 12/05/17 08:35 O2 Sat by Pulse Oximetry (%) 89 L 12/05/17 08:35 Constitutional: Yes: Anxious, Mild Distress Eyes: Yes: Conjunctiva Clear, EOM Intact Cardiovascular: Yes: Regular Rate and Rhythm, S1, S2 Respiratory: Yes: Regular, Rales Musculoskeletal: Yes: Back Pain. No: Joint Stiffness Edema: LLE: Trace, RLE: Trace Peripheral Pulses WNL: Yes Labs: CBC, BMP 12/05/17 05:00 12/05/17 05:00 INR, PTT INR 1.26 (0.82-1.09) H 11/28/17 10:38 Problem List - Problems (1) Fall Assessment/Plan: Present after sustaining a mechanical fall , unwitnessed most likely due to gait instability and C0-morbidities PT evaluations once recovers. Code(s): W19.XXXA - UNSPECIFIED FALL, INITIAL ENCOUNTER Qualifiers: Encounter type: initial encounter Qualified Code(s): W19.XXXA - Unspecified fall, initial encounter (2) COPD (chronic obstructive pulmonary disease) Assessment/Plan: Patient present with worsening COPD evaluated by Pulmonary consult cont IV steroids and Bronchodilators Nebs Code(s): J44.9 - CHRONIC OBSTRUCTIVE PULMONARY DISEASE, UNSPECIFIED Qualifiers: COPD type: unspecified COPD Qualified Code(s): J44.9 - Chronic obstructive pulmonary disease, unspecified (3) Hypothyroidism Assessment/Plan: Cont Levothyroxine Code(s): E03.9 - HYPOTHYROIDISM, UNSPECIFIED (4) Rhabdomyolysis Assessment/Plan: Due To Mechanical fall CK is trendind down on Hydration F/U CK Level Code(s): M62.82 - RHABDOMYOLYSIS Qualifiers: Rhabdomyolysis type: traumatic Encounter type: initial encounter Qualified Code(s): T79.6XXA - Traumatic ischemia of muscle, initial encounter (5) Acute kidney injury Assessment/Plan: Present with worsening Renal functions on CKD, F/U Renal recommondations and monitor Renal functions daily Code(s): N17.9 - ACUTE KIDNEY FAILURE, UNSPECIFIED (6) History of DVT (deep vein thrombosis) Assessment/Plan: On Eliquis Code(s): Z86.718 - PERSONAL HISTORY OF OTHER VENOUS THROMBOSIS AND EMBOLISM
--- NOTE | 2017-12-05 11:06 | PN ---
Progress Note (short form) - Note Progress Note: Renal follow up for MARCIAL on CKD Pt seen and examined at the bedside reports some back discomfort no CP, no SOB while on NRB mask reports making urine, no abd pain, flank pain, N/V/D no skin rash or itching Vital Signs Temperature 97.4 F L 12/05/17 08:35 Pulse Rate 74 12/05/17 08:35 Respiratory Rate 22 12/05/17 08:35 Blood Pressure 182/77 12/05/17 08:35 O2 Sat by Pulse Oximetry (%) 89 L 12/05/17 08:35 Intake & Output 12/02/17 12/03/17 12/04/17 12/05/17 23:59 23:59 23:59 23:59 Intake Total 210 360 764 684 Balance 210 360 764 684 NAD awake and alert RRR, No M/R CTA no bladder distension No LE edema CBC, BMP 12/05/17 05:00 12/05/17 05:00 Current Medications Albuterol Sulfate (Ventolin 0.083% Nebulizer Soln -) 1 amp NEB Q4H PRN PRN Reason: SHORT OF BREATH/WHEEZING Albuterol Sulfate (Ventolin 0.083% Nebulizer Soln -) 1 amp NEB RQID [facility] Last Admin: 12/05/17 08:30 Dose: 1 amp Amlodipine Besylate (Norvasc -) 10 mg PO DAILY [facility] Last Admin: 12/05/17 09:20 Dose: 10 mg Apixaban (Eliquis -) 5 mg PO BID [facility] Last Admin: 12/05/17 09:20 Dose: 5 mg Atorvastatin Calcium (Lipitor -) 10 mg PO HS [facility] Last Admin: 12/04/17 22:53 Dose: 10 mg Calcium Carbonate (Os-Boris 500mg -) 500 mg PO DAILY [facility] Last Admin: 12/05/17 09:20 Dose: 500 mg Cholecalciferol (Vitamin D3 -) 1,000 unit PO DAILY [facility] Last Admin: 12/05/17 09:20 Dose: 1,000 unit Docusate Sodium (Colace -) 100 mg PO BID [facility] Last Admin: 12/05/17 09:20 Dose: 100 mg Ipratropium [place] (Atrovent 0.02% Nebulizer -) 1 amp NEB RQID [facility] Last Admin: 12/05/17 08:30 Dose: 1 amp Levothyroxine Sodium (Synthroid -) 100 mcg PO ACBK [facility] Last Admin: 12/05/17 06:19 Dose: 100 mcg Methylprednisolone Sodium Succinate (Solu-Medrol -) 40 mg IVPUSH Q8H-IV [facility] Last Admin: 12/05/17 09:20 Dose: 40 mg Metoprolol Tartrate (Lopressor -) 25 mg PO BID [facility] Last Admin: 12/05/17 09:20 Dose: 25 mg Ranitidine HCl (Zantac -) 150 mg PO DAILY [facility] Last Admin: 12/05/17 09:20 Dose: 150 mg 82 year old woman with PMhx of COPD, PAD, LE DVTs (dx 07/2015, on Eliquis), hypothyroidism (on synthroid), HTN, DJD, and CKD stage III presented s/p fall at home and prolonged time on the ground with Cr of 2.1 #MARCIAL on CKD #Rhabdonyolyiss #Hypertension #SOB/Hypoxia/COPD Renal function continues to worsen despite trial of very genlte hydration will repeat Urine studies and check bladder scan Repeat CPK levels Check SENTHIL, Hepatitis Profile, SPEP as UPCR is ~3 w/o Hx of DM will give NS at 75cc x 24 hours with close monitoring of respiratory status no acute indication for BILLING AND INSURANCE COORDINATOR dose all meds for CrCl less then 15 Bora Rascon DO
[2017-12-05 21:23] LABS: ALLENS TEST POSITIVE; ARTERIAL BLD GAS O2 SATURATION 91.1 % (90-98.9); ARTERIAL BLOOD GAS BASE EXCESS -1.7 meq/l (-2-2); ARTERIAL BLOOD GAS PCO2 43.9 mmHg (35-45); ARTERIAL BLOOD GAS PO2 64.4 mmHg (68-100); ARTERIAL BLOOD GAS pH 7.35 (7.35-7.45)
--- NOTE | 2017-12-05 21:28 | HOSP ---
Subjective - Review of Symptoms Events since last encounter: Summoned to see patient for increased work of breathing and hypoxia. Physical exam BP 137/80, pulse 88, SpO2 88% on NRB, RR 24 ABG 7.35/44/64/23/91% on 100% NRB General: awake, alert, answers questions appropriately Lungs: diffuse wheezing and rhonchi, +accessory muscle use; loose cough; audible wheezing CV: S1, S2, rrr Hypoxemic respiratory failure --CXR today shows increased congestion, right pleural effusion --had been receiving gentle fluids for MARCIAL --Aa gradient 594 mmHg (expected 24mmHg) --Lasix IV 40mg x 1 --place on BiPAP --insert whiteside to manage volume status --repeat ABG --Lasix IV PRN --will sign out to the resident team for close monitoring Physical Examination Vital Signs: Vital Signs Temperature 97.4 F L 12/05/17 20:30 Pulse Rate 84 12/05/17 20:30 Respiratory Rate 24 12/05/17 20:30 Blood Pressure 137/59 12/05/17 20:30 O2 Sat by Pulse Oximetry (%) 88 L 12/05/17 20:30 Labs: CBC, BMP 12/05/17 05:00 12/05/17 05:00
[2017-12-05] MEDS: ATORVASTATIN CA 10 MG TABLET (FP) PO SCH (21:39)
[2017-12-05] MEDS ORDERED: FUROSEMIDE 40 MG/4 ML INJECTABLE VIAL ONE (21:44)
[2017-12-05] MEDS ORDERED: FUROSEMIDE 40 MG/4 ML INJECTABLE VIAL IVPUSH ONE ×2 (21:45→23:15)
--- NOTE | 2017-12-05 23:20 | HOSP ---
Subjective - Review of Symptoms Subjective: Received sign out from IRONING WORKER to evaluate the patient as she had been having progressive respiratory distress requiring BiPap. Physical Examination Vital Signs: Vital Signs Temperature 97.4 F L 12/05/17 20:30 Pulse Rate 84 12/05/17 20:30 Respiratory Rate 24 12/05/17 21:30 Blood Pressure 137/59 12/05/17 20:30 O2 Sat by Pulse Oximetry (%) 97 12/05/17 23:05 Findings/Remarks: Patient lethargic but easily arousable to verbal or tactile stimuli. Patient able to follow simple commands. Dry mucous membranes 2/2 NRB mask use. Constitutional: Yes: Moderate Distress HENT: Yes: Other (Dry mucous membranes) Respiratory: Yes: Accessory Muscle Use, On BiPap, Rales (in all lung heredia), Rhonchi (in all lung heredia) Labs: CBC, BMP 12/05/17 05:00 12/05/17 05:00 Hospitalist Encounter Assessment: On re-evaluation, patient lethargic and showing increased work of breathing with BiPap in place. The patient is having difficulty maintaining her saturation and minute ventilation. There are new fluffy infiltrates on CXR likely 2/2 fluid overload vs developing pneumonia. Patient meets SIRS criteria with a WBC count of 15 and respiratory rate of 24. Patient would benefit from ICU monitoring. Recommendations/Interventions: -Will give extra dose of Lasix 40mg IV as infiltrates could be 2/2 fluid overload. -Due to new infiltrates on CXR, will order Vancomycin 500mg and Aztreonam 500mg (both renally dosed) to cover potential causes of HCAP. -QTc is 500; Levaquin is contraindicated. -Zosyn contraindicated as patient has PCN allergy. -Transfer to ICU -ID consult recommended. -Case discussed w/ CC IRONING WORKER Visit type - Emergency Visit Emergency Visit: Yes ED Registration Date: 11/28/17 Care time: The patient presented to the Emergency Department on the above date and was hospitalized for further evaluation of their emergent condition. - New Patient This patient is new to me today: Yes Date on this admission: 12/06/17 - Critical Care Critical Care patient: Yes Total Critical Care Time (in minutes): 50 Critical Care Statement: The care of this patient involved high complexity decision making to prevent further life threatening deterioration of the patient 's condition and/or to evaluate & treat vital organ system(s) failure or risk of failure.
--- NOTE | 2017-12-05 23:23 | PN ---
Progress Note (short form) - Note Progress Note: PULM F/u note Pt seen and examined in ICU 24Hr: Called to floor to examine pt for worsening dyspnea, increased WOB, and worsening mental status. Briefly pt is 82yo female with h/o HTN, COPD, PAD, CKD , h/o DVTs, hypothyroidism who was found on the ground confused. Found to have rhabdomyolysis. Has been on floor since admission. Pt had earlier required increasing fio2, ABG with po2 60s on NRB. Pt with pooling upper airway secretion and poor mental status. She had been placed on NIV on my arrival. Pt on 07/07 100% with Spo2 94, MV of 18L, RR 25+ (450--550cc). Pt toxic appearing with accessory muscle use and significant work of breathing. . Brought to ICU for further care. Pt has rising wbc, worsening Cxr. Broad spectrum abx to be started. (caity FRANK) . Vital Signs Temp 97.4 F L 12/05/17 20:30 Pulse 84 12/05/17 20:30 Resp 24 12/05/17 20:30 BP 137/59 12/05/17 20:30 Pulse Ox 88 L 12/05/17 20:30 Intake & Output 12/04/17 12/05/17 12/05/17 23:59 11:59 23:59 Intake Total 604 684 176 Balance 604 684 176 Intake: IV 94 504 126 Normal Saline - 1,000 ml 84 504 126 @ 42 mls/hr IV ASDIR [facility] Rx#:[id number] Saline Lock 10 Oral 510 180 50 Other: Voiding Method Incontinent Incontinent Incontinent # Unmeasured Voids Void 2 1 Bowel Movement No No Current Medications Albuterol Sulfate (Ventolin 0.083% Nebulizer Soln -) 1 amp NEB Q4H PRN PRN Reason: SHORT OF BREATH/WHEEZING Albuterol Sulfate (Ventolin 0.083% Nebulizer Soln -) 1 amp NEB RQID [facility] Last Admin: 12/05/17 20:30 Dose: 1 amp Amlodipine Besylate (Norvasc -) 10 mg PO DAILY [facility] Last Admin: 12/05/17 09:20 Dose: 10 mg Apixaban (Eliquis -) 5 mg PO BID [facility] Last Admin: 12/05/17 21:46 Dose: 5 mg Atorvastatin Calcium (Lipitor -) 10 mg PO HS [facility] Last Admin: 12/05/17 21:39 Dose: Not Given Calcium Carbonate (Os-Boris 500mg -) 500 mg PO DAILY [facility] Last Admin: 12/05/17 09:20 Dose: 500 mg Chlorhexidine Gluconate (Hibiclens For Decolonization -) 1 applic TP HS [facility] Cholecalciferol (Vitamin D3 -) 1,000 unit PO DAILY [facility] Last Admin: 12/05/17 09:20 Dose: 1,000 unit Docusate Sodium (Colace -) 100 mg PO BID [facility] Last Admin: 12/05/17 21:38 Dose: Not Given Ipratropium [place] (Atrovent 0.02% Nebulizer -) 1 amp NEB RQID [facility] Last Admin: 12/05/17 20:30 Dose: 1 amp Levothyroxine Sodium (Synthroid -) 100 mcg PO ACBK [facility] Last Admin: 12/05/17 06:19 Dose: 100 mcg Methylprednisolone Sodium Succinate (Solu-Medrol -) 40 mg IVPUSH Q8H-IV [facility] Last Admin: 12/05/17 17:22 Dose: 40 mg Metoprolol Tartrate (Lopressor -) 25 mg PO BID [facility] Last Admin: 12/05/17 21:46 Dose: 25 mg Mupirocin (Bactroban Ointment (For Decolonization) -) 1 applic NS BID [facility] Stop: 12/11/17 09:59 Ranitidine HCl (Zantac -) 150 mg PO DAILY [facility] Last Admin: 12/05/17 09:20 Dose: 150 mg ABG Results ABG pH 7.35 (7.35-7.45) 12/05/17 21:00 ABG pCO2 at Pt Temp 43.9 mmHg (35-45) D 12/05/17 21:00 ABG pO2 at Pt Temp 64.4 mmHg (68-100) L 12/05/17 21:00 ABG HCO3 23.4 meq/L (22-26) 12/05/17 21:00 ABG O2 Sat (Measured) 91.1 % (90-98.9) 12/05/17 21:00 ABG O2 Content 13.3 % vol (15-22) L 12/05/17 21:00 ABG Base Excess -1.7 meq/l (-2-2) 05/05/18 21:00 CBCD WBC 15.1 K/mm3 (4.0-10.0) H D 12/05/17 05:00 RBC 3.52 M/mm3 (3.60-5.2) L 12/05/17 05:00 Hgb 10.8 GM/dL (10.7-15.3) 12/05/17 05:00 Hct 32.1 % (32.4-45.2) L 12/05/17 05:00 MCV 91.2 fl (80-96) 12/05/17 05:00 MCHC 33.6 g/dl (32.0-36.0) 12/05/17 05:00 RDW 13.9 % (11.6-15.6) 12/05/17 05:00 Plt Count 291 K/MM3 (134-434) D 12/05/17 05:00 MPV 10.1 fl (7.5-11.1) 12/05/17 05:00 CMP Sodium 144 mmol/L (136-145) 12/05/17 05:00 Potassium 4.1 mmol/L (3.5-5.1) 12/05/17 05:00 Chloride 107 mmol/L (98-107) 12/05/17 05:00 Carbon Dioxide 26 mmol/L (21-32) 12/05/17 05:00 Anion Gap 11 (8-16) 12/05/17 05:00 BUN 81 mg/dL (7-18) H 12/05/17 05:00 Creatinine 2.8 mg/dL (0.55-1.02) H 12/05/17 05:00 Creat Clearance w eGFR 22.60 (>60) 11/30/17 06:10 Calcium 8.7 mg/dL (8.5-10.1) 12/05/17 05:00 Total Bilirubin 0.7 mg/dL (0.2-1.0) 11/30/17 06:10 AST 30 U/L (15-37) 11/30/17 06:10 ALT 17 U/L (12-78) 11/30/17 06:10 Alkaline Phosphatase 74 U/L (45-117) 11/30/17 06:10 Total Protein 6.4 g/dl (6.4-8.2) 11/30/17 06:10 Albumin 3.0 g/dl (3.4-5.0) L 11/30/17 06:10 CXR with small effusion, pulm vasc congestion A/ 82 y/o fem with hypoxemic resp failure in setting of MARCIAL from rhabdo, possible HCAP, volume overload P/ -short trial of diuresis and NIV -agree with HCAP coverage , LVQ, vanco given pcn allergy -send sputum and blood cxl -cont Bagonist, steroids -cont full dose a/c with eliquis - no standing fluid -npo -PPI, seda Spoke at length with pt Daughter and surrogate of highest order, also Sasha. Daughter states clearly that pt is not to be intubated or resuscitated under any circumstances. Daughter relates pt has stated clearly in the past that she would not want mechanical ventilation or life support in these circumstance. Pt to be made DNR/DNI, with continued current medical therapies. Adrian ACNP [id number] Physical Examination Vital Signs: Vital Signs Temperature 97.4 F L 12/05/17 20:30 Pulse Rate 84 12/05/17 20:30 Respiratory Rate 24 12/05/17 20:30 Blood Pressure 137/59 12/05/17 20:30 O2 Sat by Pulse Oximetry (%) 88 L 12/05/17 20:30 Constitutional: Yes: Severe Distress Eyes: Yes: EOM Intact, PERRL HENT: No: Rhinnorhea, Thrush Neck: Yes: Trachea Midline Cardiovascular: Yes: Tachycardia, S1, S2 Respiratory: Yes: Accessory Muscle Use, On BiPap, Rhonchi Gastrointestinal: Yes: Normal Bowel Sounds, Soft, Abdomen, Obese ...Rectal Exam: Yes: Deferred Renal/: Yes: Gandhi Present Breast(s): Yes: WNL Musculoskeletal: Yes: WNL Extremities: No: Cyanosis, Delayed Capillary Refill Edema: LUE: Trace, RUE: Trace, LLE: Trace, RLE: Trace Peripheral Pulses WNL: Yes Peripheral Pulses: Left Radial: 2+, Right Radial: 2+ Integumentary: Yes: WNL Neurological: Yes: Confusion, Cran Nerves II-XII Intact ...Motor Strength: WNL Labs: CBC, BMP 12/05/17 05:00 12/05/17 05:00 Critical Care Total Critical Care Time (in minutes): 35 Critical Care Statement: The care of this patient involved high complexity decision making to prevent further life threatening deterioration of the patient 's condition and/or to evaluate & treat vital organ system(s) failure or risk of failure.
[2017-12-05] MEDS ORDERED: VANCOMYCIN 1 GM PREMIX - 1 GM/200 ML BAG IVPB ONE (23:37)
[2017-12-05] MEDS ORDERED: ETOMIDATE 40 MG/20 ML VIAL IVPUSH ONE (23:45)
[2017-12-05] MEDS ORDERED: ROCURONIUM BROMIDE 50 MG/5 ML VIAL IVPUSH ONE (23:45)
[2017-12-05] MEDS ORDERED: PROPOFOL 1,000,000 MCG/100 ML VIAL IVPB SCH (23:45)
[2017-12-05] MEDS ORDERED: ALBUTEROL SO4 0.083% IH SOL 2.5 MG/3 ML VIAL.NEB. NEB PRN (23:49)
[2017-12-05] MEDS ORDERED: PROPOFOL 1,000,000 MCG/100 ML VIAL ONE (23:54)
[2017-12-05] MEDS ORDERED: ETOMIDATE 20 MG/10 ML AMPUL IVPUSH ONE (23:54)
[2017-12-06] MEDS ORDERED: morphine SULFATE 4 MG/ML VIAL ONE (00:07)
[2017-12-06] MEDS ORDERED: morphine SULFATE 4 MG/ML VIAL IVPUSH PRN (00:08)
[2017-12-06 00:17] LABS: URINE APPEARANCE CLOUDY; URINE BILIRUBIN NEGATIVE (<2.0 mg/dL); URINE COLOR YELLOW; URINE GLUCOSE (UA) NEGATIVE (NEGATIVE); URINE KETONE NEGATIVE (NEGATIVE); URINE LEUK ESTERASE NEGATIVE (NEGATIVE); URINE NITRITE NEGATIVE (NEGATIVE); URINE UROBILINOGEN NEGATIVE mg/dL (0.2-1.0)
[2017-12-06 00:18] LABS: URINE PROTEIN 2+ (NEGATIVE)
[2017-12-06 00:22] LABS: CALCIUM OXALATE CRYSTALS FEW /hpf (NONE SEEN); EPI CELLS RARE /HPF (FEW); URINE HYALINE CAST 17 /lpf; URINE MUCUS RARE
[2017-12-06] MEDS: methylPREDNISolone NA SUCC 40 MG/1 ML VIAL IVPUSH SCH ×3 (01:05→17:50)
[2017-12-06 01:24] LABS: AMORP URATES MODERATE /hpf (NONE SEEN)
[2017-12-06 01:47] LABS: URINE CREATININE 53.8 mg/dL (20-320)
[2017-12-06] MEDS: AZTREONAM 0.5 GM in DEXTROSE 5%-WATER - 50 ML IVPB SCH ×3 (02:12→14:49)
[2017-12-06 06:03] LABS: HEMATOCRIT 32.8 % (32.4-45.2); HEMOGLOBIN 11.1 GM/dL (10.7-15.3); MCH 31.3 pg (25.7-33.7); MCHC 33.9 g/dl (32.0-36.0); MEAN CELL VOLUME 92.4 fl (80-96); PLATELET COUNT 276 K/MM3 (134-434); RBC 3.54 M/mm3 (3.60-5.2); RDW 14.2 % (11.6-15.6); WHITE BLOOD COUNT 14.1 K/mm3 (4.0-10.0)
[2017-12-06 06:18] LABS: ANION GAP 9 (8-16); BLOOD UREA NITROGEN 84 mg/dL (7-18); CALCIUM 8.2 mg/dL (8.5-10.1); CHLORIDE 111 mmol/L (98-107); CO2 27 mmol/L (21-32); CREATININE 3.1 mg/dL (0.55-1.02); GLUCOSE,RANDOM 149 mg/dL (74-106); SODIUM 147 mmol/L (136-145)
[2017-12-06] MEDS ORDERED: LEVOTHYROXINE NA 100 MCG TABLET (FP) PO SCH (07:00)
[2017-12-06] MEDS ORDERED: ALBUTEROL SO4 0.083% IH SOL 2.5 MG/3 ML VIAL.NEB. NEB SCH (08:00)
[2017-12-06] MEDS: ALBUTEROL SO4 2.5/IPRATROPIUM 0.5 INH SOL 3 ML VIAL.NEB. NEB SCH ×4 (08:35→20:20)
[2017-12-06] MEDS ORDERED: FUROSEMIDE 40 MG/4 ML INJECTABLE VIAL IVPB ONE (09:04)
--- NOTE | 2017-12-06 09:09 | PN ---
Progress Note (short form) - Note Progress Note: Renal follow up for MARCIAL on CKD Pt seen and examined in the ICU chart reviewed pt transferred to ICU for hypoxia, made DNR/DNI, on BIPAP CXR showed increased congestion was given IV Lasix with only 250cc output remains on high O2 whiteside in place Vital Signs Temperature 98.2 F 12/06/17 06:00 Pulse Rate 79 12/06/17 08:31 Respiratory Rate 20 12/06/17 06:00 Blood Pressure 138/53 12/06/17 06:00 O2 Sat by Pulse Oximetry (%) 100 12/06/17 08:31 Intake & Output 12/03/17 12/04/17 12/05/17 12/06/17 23:59 23:59 23:59 23:59 Intake Total 360 764 950 300 Output Total 300 250 Balance 360 764 650 50 NAD awake and alert RRR, No M/R CTA no bladder distension No LE edema CBC, BMP 12/06/17 05:45 12/06/17 05:45 Current Medications Albuterol Sulfate (Ventolin 0.083% Nebulizer Soln -) 1 amp NEB Q4H PRN PRN Reason: SHORT OF BREATH/WHEEZING Albuterol/Ipratropium (Duoneb -) 1 amp NEB RQID [facility] Last Admin: 12/06/17 08:35 Dose: 1 amp Amlodipine Besylate (Norvasc -) 10 mg PO DAILY [facility] Apixaban (Eliquis -) 2.5 mg PO BID [facility] Atorvastatin Calcium (Lipitor -) 10 mg PO HS [facility] Calcium Carbonate (Os-Boris 500mg -) 500 mg PO DAILY [facility] Chlorhexidine Gluconate (Hibiclens For Decolonization -) 1 applic TP HS [facility] Cholecalciferol (Vitamin D3 -) 1,000 unit PO DAILY [facility] Docusate Sodium (Colace -) 100 mg PO BID [facility] Furosemide (Lasix Injection -) 80 mg IVPB ONCE ONE Stop: 12/06/17 09:05 Aztreonam 0.5 gm/ Dextrose 50 mls @ 100 mls/hr IVPB Q8H [facility] PRN Reason: Protocol Stop: 12/06/17 23:44 Last Admin: 12/06/17 02:12 Dose: 100 mls/hr Levothyroxine Sodium (Synthroid -) 100 mcg PO ACBK [facility] Last Admin: 12/06/17 06:24 Dose: Not Given Methylprednisolone Sodium Succinate (Solu-Medrol -) 40 mg IVPUSH Q8H-IV [facility] Last Admin: 12/06/17 01:05 Dose: 40 mg Metoprolol Tartrate (Lopressor -) 25 mg PO BID [facility] Morphine Sulfate (Morphine Sulfate) 2 mg IVPUSH Q3H PRN PRN Reason: shortness of breath Last Admin: 12/06/17 00:15 Dose: 2 mg Mupirocin (Bactroban Ointment (For Decolonization) -) 1 applic NS BID [facility] Stop: 12/11/17 09:59 Ranitidine HCl (Zantac -) 150 mg PO DAILY [facility] 82 year old woman with PMhx of COPD, PAD, LE DVTs (dx 07/2015, on Eliquis), hypothyroidism (on synthroid), HTN, DJD, and CKD stage III presented s/p fall at home and prolonged time on the ground with Cr of 2.1 #MARCIAL on CKD secondary to intravascular volume depletion vs. intra-renal process #Rhabdonyolysis with improved CPK #Hypertension #SOB/Hypoxia/COPD/Respiratory Failure Pt seems to be intolerant to IVF however hypoxia likely multifactorial give UO of only 250cc will give additional IV Lasix today with goal to improve CXR findings of congestion trend renal function for now, no indication for [employer], SPEP collected this am continue ICU management, IV steroids prognosis is guarded DNR/DNI Bora Rascon DO
[2017-12-06] MEDS: MUPIROCIN 2% TOPICAL OINTMENT FOR DECOLONIZATION NS SCH ×2 (09:50→22:17)
[2017-12-06] MEDS: METOPROLOL TARTRATE 25 MG TABLET (FP) PO SCH ×2 (10:00→21:35)
[2017-12-06] MEDS ORDERED: CALCIUM (OYSTER SHELL) 500 MG TABLET (FP) PO SCH (10:00)
[2017-12-06] MEDS ORDERED: CHOLECALCIFEROL (VITAMIN D3) 1,000 UNIT TABLET (FP) PO SCH (10:00)
[2017-12-06] MEDS: DOCUSATE SODIUM 100 MG CAPSULE (FP) PO SCH ×2 (10:00→21:37)
[2017-12-06] MEDS: APIXABAN 2.5 MG TABLET PO SCH ×2 (10:00→21:35)
[2017-12-06] MEDS ORDERED: RANITIDINE HCL 150 MG TABLET (FP) PO SCH (10:00)
[2017-12-06] MEDS ORDERED: amLODIPine BESYLATE 5 MG TABLET (FP) PO SCH (10:00)
--- NOTE | 2017-12-06 12:26 | PN ---
Progress Note (short form) - Note Progress Note: PULM F/u note Pt seen and examined in ICU 24Hr: -made DNR/DNI by family based on knowledge of previously stated wishes -poor UOP with iv lasix, getting more tomorrow Vital Signs Temp 98.2 F 12/06/17 06:00 Pulse 79 12/06/17 08:31 Resp 20 12/06/17 10:00 BP 138/53 12/06/17 06:00 Pulse Ox 98 12/06/17 11:24 Intake & Output 12/05/17 12/06/17 12/06/17 23:59 11:59 23:59 Intake Total 266 300 Output Total 300 250 Balance -34 50 Intake: IV 166 Normal Saline - 1,000 ml 126 @ 42 mls/hr IV ASDIR [facility] Rx#:[id number] Saline Lock 40 IVPB 300 Oral 100 Output: Urine 300 250 Gandhi 150 250 Void 150 Other: Voiding Method Incontinent Indwelling Catheter # Unmeasured Voids Void 1 Bowel Movement No Current Medications Albuterol Sulfate (Ventolin 0.083% Nebulizer Soln -) 1 amp NEB Q4H PRN PRN Reason: SHORT OF BREATH/WHEEZING Albuterol Sulfate (Ventolin 0.083% Nebulizer Soln -) 1 amp NEB RQID [facility] Last Admin: 12/05/17 20:30 Dose: 1 amp Amlodipine Besylate (Norvasc -) 10 mg PO DAILY [facility] Last Admin: 12/05/17 09:20 Dose: 10 mg Apixaban (Eliquis -) 5 mg PO BID [facility] Last Admin: 12/05/17 21:46 Dose: 5 mg Atorvastatin Calcium (Lipitor -) 10 mg PO [facility] Last Admin: 12/05/17 21:39 Dose: Not Given Calcium Carbonate (Os-Boris 500mg -) 500 mg PO DAILY [facility] Last Admin: 12/05/17 09:20 Dose: 500 mg Chlorhexidine Gluconate (Hibiclens For Decolonization -) 1 applic TP [facility] Cholecalciferol (Vitamin D3 -) 1,000 unit PO DAILY [facility] Last Admin: 12/05/17 09:20 Dose: 1,000 unit Docusate Sodium (Colace -) 100 mg PO BID [facility] Last Admin: 12/05/17 21:38 Dose: Not Given Ipratropium [place] (Atrovent 0.02% Nebulizer -) 1 amp NEB RQID [facility] Last Admin: 12/05/17 20:30 Dose: 1 amp Levothyroxine Sodium (Synthroid -) 100 mcg PO ACBK [facility] Last Admin: 12/05/17 06:19 Dose: 100 mcg Methylprednisolone Sodium Succinate (Solu-Medrol -) 40 mg IVPUSH Q8H-IV [facility] Last Admin: 12/05/17 17:22 Dose: 40 mg Metoprolol Tartrate (Lopressor -) 25 mg PO BID [facility] Last Admin: 12/05/17 21:46 Dose: 25 mg Mupirocin (Bactroban Ointment (For Decolonization) -) 1 applic NS BID [facility] Stop: 12/11/17 09:59 Ranitidine HCl (Zantac -) 150 mg PO DAILY [facility] Last Admin: 12/05/17 09:20 Dose: 150 mg CXR with small effusion, pulm vasc congestion PE: Gen: eld woman in Bipap, mild distress PULM: scattered rhonchi, no wheezes currently CV; regular, no jvp ABD; soft, NT Ext: trace edema Neuro; withdrawals, bilaterally, does not follow A/ 82 y/o fem with hypoxemic resp failure in setting of MARCIAL from rhabdo, possible HCAP, volume overload P/ -cont diuresis and NIV -agree with HCAP coverage , LVQ, vanco given pcn allergy -send sputum and blood cxl -cont Bagonist, steroids -cont full dose a/c with eliquis - no standing fluid -npo -PPI, [place] Spoke at length with pt Daughter and surrogate of highest order, also [place]. Daughter states clearly that pt is not to be intubated or resuscitated under any circumstances. Daughter relates pt has stated clearly in the past that she would not want mechanical ventilation or life support in these circumstance. Pt to be made DNR/DNI, with continued current medical therapies. Adrian ACNP [id number]
[2017-12-06] MEDS ORDERED: PT OWN MED DRAWER 7, Y5N ONE (21:22)
[2017-12-06] MEDS ORDERED: CHLORHEXIDINE GLUCONATE 4% CLEANSER FOR DECOLONIZATION TP SCH (22:00)
[2017-12-06] MEDS ORDERED: ATORVASTATIN CA 10 MG TABLET (FP) PO SCH (22:00)
[2017-12-07] MEDS ORDERED: METOPROLOL TARTRATE 5 MG/5 ML VIAL ONE (01:08)
[2017-12-07] MEDS: methylPREDNISolone NA SUCC 40 MG/1 ML VIAL IVPUSH SCH (01:45)
[2017-12-07] MEDS ORDERED: METOPROLOL TARTRATE 5 MG/5 ML VIAL IVPUSH ONE (02:00)
[2017-12-07 02:28] VITALS: TEMP 98.3
[2017-12-07 03:58] VITALS: BP 64/42; PULSE 55
--- NOTE | 2017-12-07 07:40 | PN ---
Progress Note, Physician Chief Complaint: Overnight developed respiratory distress transferred to ICU for respiratory failure, now on BIPAP History of Present Illness: 82 year old female with PMHx of COPD, PAD, lower extremity DVTs (dx 07/2015, on Eliquis), hypothyroidism, HTN, DJD, CKD stage III who presented to the ED after being found on the ground in her own urine, confused for an unknown period of time w/u shows MARCIAL worsening renal functions, transferred to ICU for worsening SOB - Objective Vital Signs: Vital Signs Temperature 98.3 F 12/06/17 12.00 Pulse Rate 55 L 12/06/17 12.00 Respiratory Rate 16 12/06/17 12:00 Blood Pressure 92/56 12/06/17 12:00 O2 Sat by Pulse Oximetry (%) 60 L 12/06/17 12:00 Constitutional: ON BIPAP respiratory Distress Eyes: Yes: Conjunctiva Clear, EOM Intact Cardiovascular: Yes: Regular Rate and Rhythm, S1, S2 Respiratory: Yes: Regular, B/L Rales Musculoskeletal: Yes: Back Pain. No: Joint Stiffness Edema: LLE: Trace, RLE: Trace Peripheral Pulses WNL: Yes Labs: CBC, BMP 12/06/17 05:45 12/06/17 05:45 INR, PTT INR 1.26 (0.82-1.09) H 11/28/17 10:38 Problem List - Problems (1) Fall Assessment/Plan: Present after sustaining a mechanical fall , unwitnessed most likely due to gait instability and C0-morbidities PT evaluations once recovers. Code(s): W19.XXXA - UNSPECIFIED FALL, INITIAL ENCOUNTER Qualifiers: Encounter type: initial encounter Qualified Code(s): W19.XXXA - Unspecified fall, initial encounter (2) COPD (chronic obstructive pulmonary disease) Assessment/Plan: Patient present with worsening COPD evaluated by Pulmonary consult cont IV steroids and Bronchodilators Nebs, now on BIPAP Code(s): J44.9 - CHRONIC OBSTRUCTIVE PULMONARY DISEASE, UNSPECIFIED Qualifiers: COPD type: unspecified COPD Qualified Code(s): J44.9 - Chronic obstructive pulmonary disease, unspecified (3) Hypothyroidism Assessment/Plan: Cont Levothyroxine Code(s): E03.9 - HYPOTHYROIDISM, UNSPECIFIED (4) Rhabdomyolysis Assessment/Plan: Due To Mechanical fall CK is trendind down on Hydration F/U CK Level Code(s): M62.82 - RHABDOMYOLYSIS Qualifiers: Rhabdomyolysis type: traumatic Encounter type: initial encounter Qualified Code(s): T79.6XXA - Traumatic ischemia of muscle, initial encounter (5) Acute kidney injury Assessment/Plan: Present with worsening Renal functions on CKD, F/U Renal recommondations and monitor Renal functions daily Code(s): N17.9 - ACUTE KIDNEY FAILURE, UNSPECIFIED (6) History of DVT (deep vein thrombosis) Assessment/Plan: On Eliquis Code(s): Z86.718 - PERSONAL HISTORY OF OTHER VENOUS THROMBOSIS AND EMBOLISM
[2017-12-07 14:18] LABS: HEP.C VIRUS AB <0.1 s/co ratio (0.0-0.9)
--- NOTE | 2017-12-07 16:36 | DS ---
Physical Examination Vital Signs: Vital Signs Temperature 36.8 C 12/07/17 02:00 Pulse Rate 55 L 12/07/17 02:30 Respiratory Rate 16 12/07/17 02:30 Blood Pressure 64/42 12/07/17 02:30 O2 Sat by Pulse Oximetry (%) 60 L 12/07/17 02:16 Labs: CBC, BMP 12/06/17 05:45 12/06/17 05:45 Discharge Summary Reason For Visit: RHABDOMYOLYSIS Hospital Course: (1) Acute respiratory failure with hypoxia Code(s): J96.01 - ACUTE RESPIRATORY FAILURE WITH HYPOXIA (2) Pleural effusion Code(s): J90 - PLEURAL EFFUSION, NOT ELSEWHERE CLASSIFIED (3) Rhabdomyolysis Code(s): M62.82 - RHABDOMYOLYSIS Qualifiers: Rhabdomyolysis type: traumatic Encounter type: initial encounter Qualified Code(s): T79.6XXA - Traumatic ischemia of muscle, initial encounter (4) Acute kidney injury Code(s): N17.9 - ACUTE KIDNEY FAILURE, UNSPECIFIED (5) COPD (chronic obstructive pulmonary disease) Code(s): J44.9 - CHRONIC OBSTRUCTIVE PULMONARY DISEASE, UNSPECIFIED Qualifiers: COPD type: unspecified COPD Qualified Code(s): J44.9 - Chronic obstructive pulmonary disease, unspecified (6) HTN (hypertension) Code(s): I10 - ESSENTIAL (PRIMARY) HYPERTENSION (7) Hypothyroidism Code(s): E03.9 - HYPOTHYROIDISM, UNSPECIFIED (8) Fall Code(s): W19.XXXA - UNSPECIFIED FALL, INITIAL ENCOUNTER Qualifiers: Encounter type: initial encounter Qualified Code(s): W19.XXXA - Unspecified fall, initial encounter (9) History of DVT (deep vein thrombosis) Code(s): Z86.718 - PERSONAL HISTORY OF OTHER VENOUS THROMBOSIS AND EMBOLISM Ms Dale was a very pleasant 82 year old female who came in after a fall and was found down. She presented with rhabdomyolysis and MARCIAL, she was seen by nephrology and hydrated. This resolved, however she became acutely hypoxic and chest x-ray showed a pleural effusion. Her IVF was stopped and she was diuresed. Her pleural effusion resolved and chest exam cleared, however she was still incredibly hypoxic and unable to be weaned off 100% venti mask. Pulmonary was involved and she was started on steroids and fully treated for COPD exacerbation, however she did not improve. She was transferred to the ICU and placed on bipap however she continued to decline. She was DNR/DNI and on 12/07. Condition: Stable - Instructions Referrals: Nils Gutierrez MD [Primary Care Provider] - Disposition: - Home Medications Comprehensive Discharge Medication List: Ambulatory Orders Amlodipine Besylate [Norvasc -] 5 mg PO DAILY tablet 06/22/15 Albuterol 2.5/Ipratropium 0.5 [Duoneb -] 1 amp NEB QIDR amp 07/17/15 Metoprolol Tartrate [Lopressor -] 25 mg PO BID tablet 07/17/15 Calcium Carbonate [Calcium] 500 mg PO DAILY 03/10/16 Cholecalciferol (Vitamin D3) [Vitamin D3] 1,000 unit PO DAILY 03/10/16 Levothyroxine [Synthroid -] 100 mcg PO DAILY 03/10/16 Pravastatin Sodium 20 mg PO HS #30 tablet 03/14/16 Apixaban [Eliquis] 5 mg PO BID 08/08/16 Docusate Sodium [Colace -] 100 mg PO BID #30 cap 03/02/17 Lisinopril [Prinivil] 20 mg PO DAILY tablet 03/02/17 Polyethylene Glycol 3350 [Miralax 119 gm Btl -] 17 gm PO BID bottle 03/02/17 Ranitidine [Zantac -] 150 mg PO BID tablet 03/02/17
== END 2017-12-07 03:30 | disposition expired | DRG 682 ==
LOC: JER 09:29 → JERBED 14:13 → J4W 15:52 → JICU 12-05 23:48
PROVIDERS: ADMIT Internal Medicine; ATTEND Internal Medicine
PROC: 5A09557 Assistance with Respiratory Ventilation, Greater than 96 Consecutive Hours, Continuous Positive Airway Pressure (ICD-10-PCS; principal; 2017-11-28)
DX: N17.9 Acute kidney failure, unspecified (principal); J96.21 Acute and chronic respiratory failure with hypoxia; J18.9 Pneumonia, unspecified organism; M62.82 Rhabdomyolysis; J90 Pleural effusion, not elsewhere classified; J44.1 Chronic obstructive pulmonary disease with (acute) exacerbation; N13.30 Unspecified hydronephrosis; E03.9 Hypothyroidism, unspecified; N18.3 Chronic kidney disease, stage 3 (moderate); E87.70 Fluid overload, unspecified; E86.0 Dehydration; I12.9 Hypertensive chronic kidney disease with stage 1 through stage 4 chronic kidney disease, or unspecified chronic kidney disease
CPT/HCPCS: 36415; 36600; 70450-TC; 71045-TC-FY; 71250-TC; 72070-TC-FY; 73523-TC-FY; 73564-TC-LT-FY; 76775-TC; 80048; 80053; 80074; 81003; 81015; 82550; 82553; 82570; 82803; 82962; 83605; 83735; 84100; 84155; 84156; 84165; 84300; 84439; 84443; 84484; 84540; 84703; 85025; 85610; 86038; 87040; 87081; 87086; 87186; 93005; 93010; 93306-TC; 93880-TC; 94640; 94660; 97161-GP; 99284-25; G0480; J3480; J7030; J7620